=== PATIENT | female | born 2000 | race Caucasian/White ===

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

== ENCOUNTER 2021-03-31 07:10 | Inpatient (IN) ==
[2021-03-31] MEDS ORDERED: OXYTOCIN 30 UNITS/500 ML BAG IV PRN (07:22)
[2021-03-31] MEDS ORDERED: DINOPROSTONE 10 MG INSERT PV ONE (07:40)
--- NOTE | 2021-03-31 08:05 | Labor Progress Brief Note ---
Date of Service March 31, 2021 Assessment & Plan Admission and Anticipated Discharge Date Admission Date: March 31, 2021 Physical Exam Physical Exam: Admit Note Constitutional: WD/WN, vitals as above comfortable Genitourinary: Manual OB Exam: + cervical dilation fingertip, + cervical effacement 50% and + station high OB Exam Monitor Tracing: + external FHT monitor used, + external uterine monitor used, + category I and + normal FHT variability Cervidil 10 mcg placed vaginally Results & Data ([facility]) Vital Signs (Past 12 Hours) Vital Signs Pulse BP 03/31/21 07:19 125 H 130/87
[2021-03-31 08:14] LABS: Hematocrit (blood only) 37.1 % (37-47); Hemoglobin 12.6 g/dL (12.0-16.0); Mean Corpuscular Hemoglobin 30.1 pg (25-34); Mean Corpuscular Volume 88.8 fL (80-100); Mean Platelet Volume 10.5 fL (7.4-10.4); Platelet Count 200 K/uL (130-400); RDW Coefficient of Variation 13.3 % (11.5-14.5); RDW Standard Deviation 43.5 fL (36.4-46.3); Red Blood Count 4.18 M/uL (4.2-5.4); White Blood Count 10.36 K/uL (4.8-10.8)
--- NOTE | 2021-03-31 20:03 | Labor Progress Brief Note ---
Date of Service March 31, 2021 Assessment & Plan Admission and Anticipated Discharge Date Admission Date: March 31, 2021 Physical Exam Genitourinary: Manual OB Exam: + cervical dilation 1 cm, + cervical effacement 50% and + station high OB Exam Monitor Tracing: + external FHT monitor used, + external uterine monitor used, + category I and + normal FHT variability Cervidil removed patient will shower, eat, ambulate Results & Data ([facility]) Vital Signs (Past 12 Hours) Vital Signs Temp Pulse Resp BP 03/31/21 19:18 36.8 C 18 03/31/21 19:10 103 H 137/95 03/31/21 14:53 86 133/86 03/31/21 14:48 36.6 C 16 03/31/21 10:55 36.5 C 14 03/31/21 10:54 74 123/82 03/31/21 08:15 94 H 129/84
[2021-04-01] MEDS ORDERED: DINOPROSTONE 10 MG INSERT PV ONE (00:17)
--- NOTE | 2021-04-01 00:48 | Labor Progress Brief Note ---
Date of Service April 01, 2021 Assessment & Plan Admission and Anticipated Discharge Date Admission Date: March 31, 2021 Physical Exam Genitourinary: Manual OB Exam: + cervical dilation 1 cm, + cervical effacement 50% and + station high OB Exam Monitor Tracing: + external FHT monitor used, + external uterine monitor used, + category I and + normal FHT variability Cervidil placed vaginally Results & Data ([facility]) Vital Signs (Past 12 Hours) Vital Signs Temp Pulse Resp BP 03/31/21 23:09 106 H 132/83 03/31/21 22:56 36.8 C 18 03/31/21 19:18 36.8 C 18 03/31/21 19:10 103 H 137/95 03/31/21 14:53 86 133/86 03/31/21 14:48 36.6 C 16
[2021-04-01] MEDS ORDERED: BUTORPHANOL TARTRATE 1 MG/ML VIAL IV PRN (00:49)
[2021-04-01] MEDS ORDERED: OXYTOCIN 30 UNITS/500 ML BAG IV PRN ×2 (11:51→20:33)
--- NOTE | 2021-04-01 11:54 | Obstetrical Progress Note ---
Date of Service April 01, 2021 Assessment & Plan Admission and Anticipated Discharge Date Admission Date: March 31, 2021 Subjective Patient is seen and examined. Reviewed her records records from office and confirmed with her. She is a 20-year-old at 40 weeks and 3 days of gestation, admitted yesterday for induction of labor for postdates. Received 2 Cervidil inserts. She does not feel contractions, denies leakage of fluid or vaginal bleeding. She reports good movements. GBS is negative, heart rate is reassuring, Vaginal exam, cervix is 3 cm dilated, 50% paced and head at -3 station Bedside ultrasound is done confirmed vertex presentation. Patient desires to eat before we start oxytocin. Plan for lunch and then low-dose oxytocin per protocol and AROM when able, Continue to monitor closely. Results & Data ([facility]) Vital Signs (Past 12 Hours) Vital Signs Temp Pulse Resp BP 04/01/21 11:01 77 139/84 04/01/21 11:00 36.7 C 77 18 04/01/21 07:00 36.8 C 94 H 16 133/79 04/01/21 04:38 107 H 127/70 04/01/21 04:36 37.0 C 18 04/01/21 02:45 16
[2021-04-01] MEDS: LACTATED RINGER'S 1,000 ML IV PRN ×2 (12:48→17:38)
[2021-04-01] MEDS ORDERED: fentaNYL 2MCG/ML ROPIVACAINE 1.25MG/ML 100 ML BAG EPI ONE (14:25)
[2021-04-01] MEDS ORDERED: SODIUM CHLORIDE 0.9% INJ 10 ML VIAL ONE (14:25)
[2021-04-01] MEDS ORDERED: ePHEDrine sulfate 50 MG/ML AMP ONE (14:25)
[2021-04-01] MEDS ORDERED: fentaNYL citrate 100 MCG/2 ML VIAL ONE (14:25)
[2021-04-01] MEDS ORDERED: BUPIVACAINE 0.25% 30 ML VIAL ONE (14:25)
--- NOTE | 2021-04-01 14:33 | Anesthesiology Consultation ---
Date of Service April 01, 2021 Assessment & Plan ASA ASA2 Proposed Anesthesia Anesthesia Type: Labor Epidural Risk / Benefits Reviewed With: PT / POA / Parent / Guardian, Accepts Plan and Informed Consent Obtained History Height/Weight Height: 5 ft 5 in Weight: 97.522 kg Allergies Allergy/AdvReac Type Severity Reaction Status Date / Time No Known Allergies Allergy Verified 09/27/20 21:14 Medications Home Medications Medication Instructions Recorded Confirmed Last Taken buspirone 15 mg tablet 15 mg PO BID 09/27/20 03/31/21 03/30/21 21:00 lamotrigine 150 mg tablet 150 mg PO QAM 09/27/20 03/31/21 03/30/21 21:00 vitamins no.144-folic 1 tab PO DAILY 09/27/20 03/31/21 03/30/21 21:00 acid 400 mcg chewable tablet () Active Medications Generic Name Dose Route Start Last Admin Trade Name Freq PRN Reason Stop Dose Admin Lactated Ringer's 1,000 mls @ 125 mls/hr 03/31/21 07:22 04/01/21 14:52 Lr IV 04/02/21 07:21 125 mls/hr .Q8H PRN Titration L&D Protocol Protocol Oxytocin 30 units in 500 mls @ 4 mls/hr 04/01/21 11:51 04/01/21 13:45 Pitocin IV 04/03/21 11:50 0.24 units/hr .Q24H PRN 4 mls/hr Labor Induction/Augmentation Titration Protocol 0.24 UNITS/HR Past Medical History Medical History (Updated 03/31/21 @ 11:17 by Heather Bassett RN) Anaphylactic reaction due to unspecified food Anxiety Bipolar 2 disorder COVID-22 December 2020 Depression History of frequent headaches Exercise / Class Metabolic Activity II 4-5 Yardwork/Stairs/Walk up hill Past Family History Family History Other Cancer Diabetes Heart disease Hypertension Past Surgical History Surgical History (Updated 03/31/21 @ 08:10 by Heather Bassett RN) History of tonsillectomy [place] teeth extracted Past Anesthesia History No Hx of Anesthesia Complications and No Family Hx of Anesthesia Complications History of PONV No Hx of PONV and No Hx of Motion Sickness Social History Smoking Status: Former smoker tobacco type: cigarettes Hx Alcohol Use: No Hx Substance Use: No Review of Systems denies fever/cough/ colds/ chest pain/ SOB/ JIMENA denies JIMENA Physical Exam Vital Signs Last Vital Signs Temp 36.7 C 04/01/21 11:00 Pulse 98 H 04/01/21 15:19 Resp 18 04/01/21 11:00 BP 114/60 04/01/21 15:16 Pulse Ox 99 04/01/21 15:19 ENMT Mouth: no TMJ abnormality and no dentition abnormality Thyromental Distance: > or= 3.5 Finger Breadths Mallampati Class: II Neck neck extension not limited Respiratory normal respiratory effort; no respiratory distress Auscultation: lungs clear to auscultation bilaterally Cardiovascular Rate/Rhythm: regular rate and regular rhythm Neurologic moves all extremities Psychiatric Orientation: alert and oriented x 3 Testing Laboratory Results 03/31/21 07:56
[2021-04-01] MEDS ORDERED: NALOXONE HCL 0.4 MG/1 ML VIAL/CARP IV PRN (14:34)
[2021-04-01] MEDS ORDERED: NALBUPHINE HCL INJ 10 MG/ML AMP IV PRN (14:34)
[2021-04-01] MEDS ORDERED: NALOXONE HCL 1 MG in SODIUM CHLORIDE 0.9% 1000ML 1,000 ML IV PRN (14:34)
[2021-04-01] MEDS ORDERED: ePHEDrine sulfate 50 MG/ML AMP IV PRN (14:34)
[2021-04-01] MEDS ORDERED: diphenhydrAMINE 50 MG/ML VIAL IV PRN (14:34)
[2021-04-01] MEDS ORDERED: fentaNYL 2MCG/ML ROPIVACAINE 1.25MG/ML 100 ML BAG EPI PRN (14:34)
[2021-04-01] MEDS ORDERED: ONDANSETRON INJ 2 MG/ML 2 ML VIAL IV PRN (14:34)
--- NOTE | 2021-04-01 16:02 | Obstetrical Progress Note ---
Date of Service April 01, 2021 Assessment & Plan Admission and Anticipated Discharge Date Admission Date: March 31, 2021 Subjective Patient is reevaluated She is comfortable now, received epidural for pain VSS Afebrile FHR categ I Denair ctxs q 3-4 min, pitocin is at 6 miu/min VE: 4/ 70%/ -2, AROM'ed clear fluid Continue to monitor closely Results & Data ([facility]) Vital Signs (Past 12 Hours) Vital Signs Temp Pulse Resp BP Pulse Ox 04/01/21 15:59 118 H 99 04/01/21 15:54 93 H 102/55 L 98 04/01/21 15:49 93 H 102/55 L 97 04/01/21 15:44 92 H 98 04/01/21 15:43 96 H 103/53 L 04/01/21 15:39 93 H 98 04/01/21 15:38 95 H 102/51 L 04/01/21 15:34 91 H 98 04/01/21 15:33 96 H 94/53 L 04/01/21 15:29 102 H 98 04/01/21 15:28 106 H 106/53 L 04/01/21 15:24 101 H 99/53 L 99 04/01/21 15:19 98 H 99 04/01/21 15:16 99 H 114/60 04/01/21 15:14 98 H 115/64 99 04/01/21 15:12 98 H 122/61 04/01/21 15:10 101 H 119/62 04/01/21 15:09 107 H 98 04/01/21 15:08 101 H 115/57 L 04/01/21 15:06 100 H 127/71 04/01/21 15:04 96 H 132/75 99 04/01/21 14:58 115 H 99 04/01/21 14:55 129 H 141/79 H 04/01/21 14:53 114 H 100 04/01/21 14:48 107 H 99 04/01/21 14:43 106 H 99 04/01/21 14:42 87 139/88 04/01/21 13:55 95 H 132/74 04/01/21 12:54 115 H 138/87 04/01/21 11:01 77 139/84 04/01/21 11:00 36.7 C 77 18 04/01/21 07:00 36.8 C 94 H 16 133/79 04/01/21 04:38 107 H 127/70 04/01/21 04:36 37.0 C 18
--- NOTE | 2021-04-01 19:41 | Obstetrical Progress Note ---
Date of Service April 01, 2021 Assessment & Plan Admission and Anticipated Discharge Date Admission Date: March 31, 2021 Subjective Patient will start to feel contractions and pressure. Vaginal exam, cervix is fully dilated and head is at +2 station. heart rate is category 1 with prolonged accelerations, We will start pushing and anticipate . Results & Data ([facility]) Vital Signs (Past 12 Hours) Vital Signs Temp Pulse Resp BP Pulse Ox 04/01/21 19:39 110 H 98 04/01/21 19:34 113 H 99 04/01/21 19:31 107 H 138/86 04/01/21 19:29 98 H 99 04/01/21 19:24 102 H 99 04/01/21 19:19 103 H 98 04/01/21 19:15 89 123/70 04/01/21 19:14 101 H 98 04/01/21 19:09 98 H 98 04/01/21 19:04 97 H 98 04/01/21 19:00 37.0 C 90 18 123/77 04/01/21 18:59 100 H 99 04/01/21 18:54 101 H 98 04/01/21 18:49 87 99 04/01/21 18:46 88 107/60 04/01/21 18:44 87 97 04/01/21 18:39 90 98 04/01/21 18:34 102 H 99 04/01/21 18:31 95 H 134/66 04/01/21 18:29 108 H 99 04/01/21 18:24 101 H 98 04/01/21 18:19 108 H 98 04/01/21 18:16 100 H 129/84 04/01/21 18:14 101 H 98 04/01/21 18:09 99 H 97 04/01/21 18:04 97 H 97 04/01/21 18:00 102 H 20 138/83 04/01/21 17:59 110 H 99 04/01/21 17:54 91 H 97 04/01/21 17:49 83 98 04/01/21 17:45 100 H 127/80 04/01/21 17:44 93 H 98 04/01/21 17:39 103 H 98 04/01/21 17:34 94 H 97 04/01/21 17:30 100 H 125/81 04/01/21 17:29 79 97 04/01/21 17:24 85 97 04/01/21 17:19 85 97 04/01/21 17:17 75 112/70 04/01/21 17:14 100 H 98 04/01/21 17:09 87 98 04/01/21 17:04 77 97 04/01/21 17:01 85 113/79 04/01/21 17:00 18 04/01/21 16:59 77 97 04/01/21 16:54 83 98 04/01/21 16:49 89 97 04/01/21 16:46 93 H 129/85 04/01/21 16:44 106 H 98 04/01/21 16:39 93 H 98 04/01/21 16:34 100 H 99 04/01/21 16:31 89 127/69 04/01/21 16:30 36.5 C 94 H 18 127/69 99 04/01/21 16:29 112 H 99 04/01/21 16:24 91 H 99 04/01/21 16:19 112 H 98 04/01/21 16:16 98 H 110/63 04/01/21 16:15 18 04/01/21 16:14 98 H 99 04/01/21 16:09 95 H 99 04/01/21 16:04 96 H 98 04/01/21 16:02 121 H 96/54 L 04/01/21 16:01 102 H 106/55 L 04/01/21 16:00 18 04/01/21 15:59 118 H 99 04/01/21 15:54 93 H 102/55 L 98 04/01/21 15:49 93 H 102/55 L 97 04/01/21 15:45 18 04/01/21 15:44 92 H 98 04/01/21 15:43 96 H 103/53 L 04/01/21 15:39 93 H 98 04/01/21 15:38 95 H 102/51 L 04/01/21 15:34 91 H 98 04/01/21 15:33 96 H 94/53 L 04/01/21 15:30 18 04/01/21 15:29 102 H 98 04/01/21 15:28 106 H 106/53 L 04/01/21 15:24 101 H 99/53 L 99 04/01/21 15:19 98 H 99 04/01/21 15:16 99 H 114/60 04/01/21 15:15 18 04/01/21 15:14 98 H 115/64 99 04/01/21 15:12 98 H 122/61 04/01/21 15:10 101 H 20 119/62 04/01/21 15:09 107 H 98 04/01/21 15:08 101 H 115/57 L 04/01/21 15:06 100 H 127/71 04/01/21 15:05 20 04/01/21 15:04 96 H 132/75 99 04/01/21 14:58 115 H 99 04/01/21 14:55 129 H 141/79 H 04/01/21 14:53 114 H 100 04/01/21 14:48 107 H 99 04/01/21 14:43 106 H 99 04/01/21 14:42 87 139/88 04/01/21 14:30 37.0 C 20 04/01/21 13:55 95 H 132/74 04/01/21 12:54 115 H 138/87 04/01/21 11:01 77 139/84 04/01/21 11:00 36.7 C 77 18
[2021-04-01] MEDS ORDERED: BENZOCAINE 20% AER SPR 82.5 GM CAN EXT PRN (20:33)
[2021-04-01] MEDS ORDERED: bisacodyL 10 MG SUPP PR PRN (20:33)
[2021-04-01] MEDS ORDERED: HYDROCORTISONE ACETATE 25 MG SUPP PR PRN (20:33)
[2021-04-01] MEDS ORDERED: SUPERCREAM 0.870% 15 GM JAR EXT PRN (20:33)
[2021-04-01] MEDS ORDERED: MEASLES, MUMPS & RUBELLA VIRUS VIAL SQ ONE (20:33)
[2021-04-01] MEDS ORDERED: DIPHTHERIA/TETANUS/PERTUSSIS 0.5 ML SYR/VIAL IM ONE (20:33)
[2021-04-01] MEDS ORDERED: oxyCODONE/ACETAMINOPHEN 5mg/325mg TAB PO PRN (20:33)
--- NOTE | 2021-04-01 21:06 | Delivery Summary ---
DATE OF DELIVERY: 04/01/2021. TIME: 19:58 p.m. DETAILS OF DELIVERY: The patient was found to be fully dilated and desired to push. She pushed for about 20 minutes and delivered the head without difficulty. Shoulders were delivered with minimal traction. There was a nuchal cord around the neck x2 and those were tight. Those were reduced and then baby was handed off to the mother where mouth and nose were suctioned. Baby was vigorously moving and crying. Cord was clamped x2 and cut at 1 minute delay. Then the vagina and perineum were checked for lacerations. There was a second- degree vaginal laceration at the posterior vaginal wall and there was a first- degree in the left superior labia minora. The second-degree laceration was repaired with 2-0 Vicryl in a running locked fashion. There was an oozing part. It was also repaired with multiple [id number] stitches and then left labial laceration was repaired with 3-0 Vicryl on an SH needle. Excellent hemostasis was achieved. Placenta was found to be in the vagina, delivered spontaneous as intact and complete. Uterus was explored and found to be empty. Lower segment was cleared of all clots and debris. Fundus was firm. EBL was 200 mL. Then, the vagina was checked again to have oozing from the repair on the posterior wall. It was repaired with [id number] stitches with 2-0 Vicryl. There was general oozing on the mucosa. Those were covered with Sharon powder and two sponges were placed for vaginal pressure to be removed in 2 hours. Mom and baby tolerated the procedure well. Sponge, lap, and needle count was correct x2. Baby was a viable female infant, Apgars 8 and 9, weight is 3536 GR. No complications happened and I was present during whole procedure. Job ID: [id number] [facility]
[2021-04-01] MEDS: DOCUSATE SODIUM 100 MG CAP PO SCH (21:59)
[2021-04-02] MEDS: IBUPROFEN 600 MG TAB PO PRN ×3 (04:51→19:58)
[2021-04-02 06:57] LABS: Hematocrit (blood only) 30.6 % (37-47); Hemoglobin 10.3 g/dL (12.0-16.0); Mean Corpuscular Hemoglobin 29.9 pg (25-34); Mean Corpuscular Hgb Conc 33.7 g/dL (32-36); Mean Platelet Volume 10.3 fL (7.4-10.4); Platelet Count 161 K/uL (130-400); RDW Coefficient of Variation 13.3 % (11.5-14.5); RDW Standard Deviation 43.8 fL (36.4-46.3); Red Blood Count 3.44 M/uL (4.2-5.4)
[2021-04-02] MEDS ORDERED: PRENATAL VITAMIN 1 TAB PO SCH (08:00)
[2021-04-02] MEDS ORDERED: FERROUS SULFATE 325 MG TAB PO SCH (08:00)
[2021-04-02] MEDS: DOCUSATE SODIUM 100 MG CAP PO SCH ×2 (08:50→19:57)
--- NOTE | 2021-04-02 09:37 | Anesthesia Procedure Note ---
Date of Service April 02, 2021 Anesthesia Post Epidural Note Vital Signs Vital Signs: Temp Pulse Resp BP Pulse Ox 36.7 C 93 H 16 109/71 99 04/02/21 04:20 04/02/21 04:20 04/02/21 04:20 04/02/21 04:20 04/02/21 04:20 Pain Intensity Lower Medial Back: Pain Intensity: 0 Episiotomy/Laceration: Pain Intensity: 2 Notes Mental Status: alert / awake / arousable Nausea / Vomiting: adequately controlled Pain: adequately controlled Airway Patency, RR, SpO2: stable & adequate BP & HR: stable & adequate Hydration State: stable & adequate Neuraxial Anesthesia: was administered and sensory block is resolving Anesthetic Complications: no major complications apparent and Pt Satisfied with anesthetic care Epidural: Removed without complications and With tip intact
--- NOTE | 2021-04-02 10:30 | Obstetrical Progress Note ---
Date of Service April 02, 2021 Subjective Review of Systems doing well plans for d/c in AM Physical Exam Constitutional WD/WN, vitals as above comfortable abdomen soft and non-tender fundus firm no edema neg Mo's for d/c in AM Results & Data ([facility]) Vital Signs (Past 12 Hours) Vital Signs Temp Pulse Pulse Resp BP BP Pulse Ox 04/02/21 08:30 36.5 C 85 20 110/74 99 04/02/21 04:20 36.7 C 93 H 16 109/71 99 04/01/21 23:30 37.2 C 98 H 17 110/73 98 04/01/21 22:30 117 H 18 128/76
[2021-04-02] MEDS: ACETAMINOPHEN 325 MG TAB PO PRN (19:57)
[2021-04-02] MEDS ORDERED: bisacodyL 5 MG TABEC PO SCH (20:00)
[2021-04-02] MEDS ORDERED: lamoTRIgine 25 MG TAB PO SCH (21:00)
[2021-04-02] MEDS ORDERED: busPIRone 15 MG TAB PO SCH (21:00)
[2021-04-03 06:42] LABS: Hematocrit (blood only) 33.1 % (37-47); Hemoglobin 11.1 g/dL (12.0-16.0)
[2021-04-03] MEDS: ACETAMINOPHEN 325 MG TAB PO PRN (06:42)
--- NOTE | 2021-04-03 08:00 | Obstetrical Progress Note ---
Date of Service April 03, 2021 Assessment & Plan Admission and Anticipated Discharge Date Admission Date: March 31, 2021 Subjective Patient is seen and examined. She feels well, no complaints. Ambulating without dizziness Voiding without difficulty Tolerating regular diet with out N&V Bleeding is minimal No fever/ chills/ CP/ SOB/ N&V/ Leg pain Flatus+, BM neg Bottle feeding without problems Vital Signs Temp Pulse Resp BP BP Pulse Ox 04/02/21 23:50 36.7 C 80 17 118/77 99 04/02/21 19:40 36.7 C 99 H 16 129/84 100 04/02/21 15:50 36.5 C 83 20 119/76 98 04/02/21 12:55 36.6 C 92 H 20 124/82 99 04/02/21 08:30 36.5 C 85 20 110/74 99 Lab Results 03/31/21 03/31/21 03/31/21 Range/Units 07:40 07:40 07:56 WBC 10.36 (4.8-10.8) K/uL RBC 4.18 L (4.2-5.4) M/uL Hgb 12.6 (12.0-16.0) g/dL Hct 37.1 (37-47) % MCV 88.8 (80-100) fL MCH 30.1 (25-34) pg MCHC 34.0 (32-36) g/dL RDW Std Deviation 43.5 (36.4-46.3) fL RDW Coeff of Talya 13.3 (11.5-14.5) % Plt Count 200 (130-400) K/uL MPV 10.5 H (7.4-10.4) fL COVID-19 Eval Order Covid19 [facility] SARS-CoV-2, RNA, NAAT NEGATIVE (NEGATIVE) 04/02/21 04/03/21 Range/Units 06:37 06:16 WBC 14.80 H (4.8-10.8) K/uL RBC 3.44 L (4.2-5.4) M/uL Hgb 10.3 L 11.1 L (12.0-16.0) g/dL Hct 30.6 L 33.1 L (37-47) % MCV 89.0 (80-100) fL MCH 29.9 (25-34) pg MCHC 33.7 (32-36) g/dL RDW Std Deviation 43.8 (36.4-46.3) fL RDW Coeff of Talya 13.3 (11.5-14.5) % Plt Count 161 (130-400) K/uL MPV 10.3 (7.4-10.4) fL COVID-19 Eval Order SARS-CoV-2, RNA, NAAT (NEGATIVE) PE: General: Alert, orientedx3, NAD Abd: soft, NT, fundus firm, below Umbilicus Perineum intact, Lochia rubra minimal Ext; NT, no edema AP: 20 yo s/p , ppd# 2 VSS Afebrile doing well Continue routine care All questions were answered Discussed when to call D/C home , f/u in office Results & Data ([facility]) Vital Signs (Past 12 Hours) Vital Signs Temp Pulse Resp BP Pulse Ox 04/02/21 23:50 36.7 C 80 17 118/77 99
[2021-04-03] MEDS ORDERED: POLYETHYLENE (MIRALAX) 17 GM PACK PO SCH (09:00)
== END 2021-04-03 11:35 | disposition home or self-care (01) | DRG 807 ==
LOC: 4S1 07:10 → 4S2 04-02 00:01

== ENCOUNTER 2023-02-01 07:27 | Inpatient (IN) ==
[2023-02-01] MEDS ORDERED: LIDOCAINE 1% LOCAL 20 ML VIAL INFIL PRN (10:39)
[2023-02-01] MEDS ORDERED: OXYTOCIN 30 UNITS/500 ML BAG IV PRN (10:39)
--- NOTE | 2023-02-01 11:11 | History & Physical Report ---
Date of Service February 01, 2023 Assessment & Plan Admission and Anticipated Discharge Date Admission Date: February 01, 2023 History of Present Illness Chief Complaint: induction of labor for post-dates Primary Care Provider: Kim Parker, 22 F [id number] at 40.2 weeks here for IOL for post-dates . GBS is positive. Covid is negative. Allergies Allergy/AdvReac Type Severity Reaction Status Date / Time No Known Allergies Allergy Verified 02/01/23 08:11 Home Medications Medication Instructions Recorded Confirmed Type albuterol sulfate 90 mcg/actuation 2 inh inhalation Q4 PRN Shortness 10/12/21 02/01/23 History aerosol inhaler Of Breath prenat.vits,iva,zpg-ahnu-cbwtu 1 tab PO DAILY 02/01/23 02/01/23 History Patient History Medical History ADHD Anaphylactic reaction due to unspecified food Anxiety Bipolar 2 disorder COVID-22 December 2020 Depression History of frequent headaches Surgical History History of tonsillectomy [place] teeth extracted Family History Other Cancer Diabetes Heart disease Hypertension Social History Smoking Status: Never smoker Tobacco Type: E-cigarettes / Vaping Hx Alcohol Use: No Hx Substance Use: No Preferred Language: Kyrgyz Communication Ability: Effective District Sales Leader Required: No Beliefs That Will Affect Care: None marital status: Current Living Situation: Spouse Current Living Situation Comment: and daughter current occupational status: unemployed Other Information That Helps Us Care for You: No Feels Safe at Home: Yes Safety Concerns: Feels Safe At This Time Gender Identity: Female Assistive Devices: None OB History x1 RN PSYCHIATRIC History neg Review of Systems All systems reviewed & are unremarkable except as noted in HPI & below Physical Exam Constitutional: WD/WN, vitals as above Eyes: PERRL, conjunctivae normal, anicteric sclerae Respiratory: normal respiratory effort, lungs clear to auscultation Gastrointestinal (Abdomen): Inspection/Auscultation: abdomen normal to inspection Skin: no rashes, warm and dry Neurologic: patellar DTR's 2+ bilat, sensation intact Psychiatric: A+Ox3, euthymic affect Genitourinary: no vaginal lesions, no adnexal mass OB Exam Abdomen: + fundal height and + vertex Manual OB Exam: + cervical dilation 1 cm, + cervical effacement 50% and + station high OB Exam Monitor Tracing: + external FHT monitor used, + external uterine monitor used, + category I and + normal FHT variability cervix posterio and soft Results & Data Vital Signs (Past 12 Hours) Vital Signs Temp Pulse Resp BP 02/01/23 07:48 36.9 C 20 02/01/23 07:40 81 131/75 Laboratory Results 02/01/23 02/01/23 08:12 Unknown SARS-CoV-2, RNA, NAAT NEGATIVE Blood Type O Positive Antibody Screen NEGATIVE Code Status & VTE Plan VTE Prophylaxis Plan VTE Prophylaxis will be ordered: No Monitoring External Monitor Cat 1
[2023-02-01] MEDS ORDERED: PENICILLIN G POTASSIUM 6 MU in DEXTROSE 5% 250 ML IV STA (11:13)
[2023-02-01] MEDS ORDERED: miSOPROStoL 50 MCG TAB PO STA (11:13)
[2023-02-01 11:19] LABS: Hematocrit (blood only) 33.7 % (37.0-47.0); Hemoglobin 10.7 g/dl (12.0-16.0); Mean Corpuscular Hemoglobin 27.1 pg (25.0-34.0); Mean Corpuscular Hgb Conc 31.8 g/dL (32.0-36.0); Mean Corpuscular Volume 85.3 fL (80.0-100.0); Mean Platelet Volume 11.1 fL (9.4-12.4); Platelet Count 198 K/uL (130-400); RDW Coefficient of Variation 14.1 % (11.5-14.5); RDW Standard Deviation 43.6 fL (36.4-46.3); Red Blood Count 3.95 M/uL (4.20-5.40); White Blood Count 9.05 K/ul (4.8-10.8)
[2023-02-01] MEDS: LACTATED RINGER'S 1,000 ML IV PRN (11:47)
[2023-02-01] MEDS: PENICILLIN G POTASSIUM 3 MU in DEXTROSE 5% 100 ML IV PRN ×3 (15:47→23:56)
--- NOTE | 2023-02-01 16:54 | Labor Progress Brief Note ---
Date of Service February 01, 2023 Assessment & Plan Admission and Anticipated Discharge Date Admission Date: February 01, 2023 Physical Exam Genitourinary: Manual OB Exam: + cervical dilation 1 cm, + cervical effacement 50% and + station high OB Exam Monitor Tracing: + external FHT monitor used, + external uterine monitor used, + category I and + normal FHT variability Results & Data Vital Signs (Past 12 Hours) Vital Signs Temp Pulse Resp BP 02/01/23 15:52 37.0 C 20 02/01/23 07:48 36.9 C 02/01/23 15:51 81 02/01/23 15:51 133/81 02/01/23 14:09 86 02/01/23 14:09 36.9 C 20 123/66 02/01/23 11:47 80 02/01/23 11:47 134/72 02/01/23 11:39 86 02/01/23 11:39 135/89 02/01/23 07:40 81 131/75
[2023-02-01] MEDS: miSOPROStoL 50 MCG TAB PO SCH ×2 (17:20→21:45)
[2023-02-01] MEDS ORDERED: DINOPROSTONE 10 MG INSERT PV ONE (22:18)
--- NOTE | 2023-02-01 22:59 | Labor Progress Brief Note ---
Date of Service February 01, 2023 Assessment & Plan Admission and Anticipated Discharge Date Admission Date: February 01, 2023 Physical Exam Genitourinary: Manual OB Exam: + cervical dilation 1 cm, + cervical effacement 50% and + station high OB Exam Monitor Tracing: + external FHT monitor used, + external uterine monitor used, + category I and + normal FHT variability Cervidil 10 mg placed vaginally Results & Data Vital Signs (Past 12 Hours) Vital Signs Temp Pulse Resp BP 02/01/23 19:25 36.9 C 18 02/01/23 15:52 37.0 C 20 02/01/23 22:40 82 02/01/23 22:40 122/73 02/01/23 21:15 18 02/01/23 21:15 18 02/01/23 19:28 18 02/01/23 19:28 36.9 C 18 02/01/23 19:28 81 02/01/23 19:28 130/70 02/01/23 15:51 81 02/01/23 15:51 133/81 02/01/23 14:09 86 02/01/23 14:09 36.9 C 20 123/66 02/01/23 11:47 80 02/01/23 11:47 134/72 02/01/23 11:39 86 02/01/23 11:39 135/89
[2023-02-01] MEDS ORDERED: BUTORPHANOL TARTRATE 1 MG/ML VIAL IV PRN (23:11)
[2023-02-02] MEDS: PENICILLIN G POTASSIUM 3 MU in DEXTROSE 5% 100 ML IV PRN ×4 (04:25→18:11)
[2023-02-02] MEDS ORDERED: OXYTOCIN 30 UNITS/500 ML BAG IV PRN (13:17)
--- NOTE | 2023-02-02 13:18 | Labor Progress Brief Note ---
Date of Service February 02, 2023 Assessment & Plan Admission and Anticipated Discharge Date Admission Date: February 01, 2023 Physical Exam Genitourinary: Manual OB Exam: + cervical dilation 1 cm and 2 cm, + cervical effacement 50% and + station high OB Exam Monitor Tracing: + external FHT monitor used, + external uterine monitor used, + category I and + normal FHT variability will start Oxytocin to augment contraactions Results & Data Vital Signs (Past 12 Hours) Vital Signs Temp Pulse Resp BP 02/02/23 11:03 36.9 C 95 H 18 125/77 02/02/23 08:29 36.7 C 80 20 120/72 02/02/23 03:42 36.4 C L 88 16 121/69
[2023-02-02] MEDS: LACTATED RINGER'S 1,000 ML IV PRN (14:01)
--- NOTE | 2023-02-02 17:44 | Labor Progress Brief Note ---
Date of Service February 02, 2023 Assessment & Plan Admission and Anticipated Discharge Date Admission Date: February 01, 2023 Physical Exam Genitourinary: Manual OB Exam: + cervical dilation 1 cm and 2 cm, + cervical effacement 50% and + station high OB Exam Monitor Tracing: + external FHT monitor used, + external uterine monitor used, + category I and + normal FHT variability Results & Data Vital Signs (Past 12 Hours) Vital Signs Temp Pulse Resp BP 02/02/23 17:05 95 H 121/63 02/02/23 16:02 90 123/79 02/02/23 15:08 36.8 C 86 18 131/79 02/02/23 11:03 36.9 C 95 H 18 125/77 02/02/23 08:29 36.7 C 80 20 120/72
[2023-02-02] MEDS ORDERED: miSOPROStoL 50 MCG TAB PO PRN (22:58)
[2023-02-02] MEDS ORDERED: BUTORPHANOL TARTRATE 1 MG/ML VIAL IV PRN (23:02)
--- NOTE | 2023-02-02 23:02 | Labor Progress Brief Note ---
Date of Service February 02, 2023 Assessment & Plan Admission and Anticipated Discharge Date Admission Date: February 01, 2023 Physical Exam Genitourinary: Manual OB Exam: + cervical dilation 1 cm and 2 cm, + cervical effacement 50% and + station (cervix softer but still posterior) high OB Exam Monitor Tracing: + external FHT monitor used, + external uterine monitor used, + category I and + normal FHT variability Will hold Oxytocin during night and start Cytotec 50 mcg PO if contractions space out intermittent monitoring during night Results & Data Vital Signs (Past 12 Hours) Vital Signs Temp Pulse Resp BP 02/02/23 22:01 80 119/79 02/02/23 21:00 86 126/80 02/02/23 20:00 74 124/79 02/02/23 19:00 36.8 C 81 18 132/79 02/02/23 17:54 84 129/80 02/02/23 17:05 95 H 121/63 02/02/23 16:02 90 123/79 02/02/23 15:08 36.8 C 86 18 131/79 02/02/23 11:03 36.9 C 95 H 18 125/77
[2023-02-03] MEDS: LACTATED RINGER'S 1,000 ML IV PRN (07:27)
--- NOTE | 2023-02-03 08:46 | Labor Progress Brief Note ---
Date of Service February 03, 2023 Subjective Current Pain Level(1-10): 3 Review of Systems All systems reviewed & are unremarkable except as noted in HPI & below Assessment & Plan (1) Normal labor: Present on Admission?: No Plan resume pitocin to [place] labor pain meds including epidural as the pt desires Admission and Anticipated Discharge Date Admission Date: February 01, 2023 Physical Exam Constitutional: well developed Respiratory: normal respiratory effort, lungs clear to auscultation Cardiovascular: RRR, no murmur, no edema Genitourinary: Manual OB Exam: + cervical dilation 3 cm, + cervical effacement 70% and + station high OB Exam Monitor Tracing: + category I Results & Data Vital Signs (Past 12 Hours) Vital Signs Temp Pulse Resp BP 02/03/23 07:00 36.7 C 89 18 139/74 02/03/23 08:37 76 136/89 02/03/23 08:21 88 122/84 02/03/23 08:07 86 126/85 02/03/23 07:00 18 02/03/23 07:00 36.7 C 89 18 139/74 02/03/23 07:51 80 125/67 02/03/23 07:36 83 128/69 02/03/23 07:05 20 02/03/23 07:05 36.8 C 20 02/03/23 07:21 83 132/68 02/03/23 07:06 89 139/74 02/03/23 03:52 36.6 C 101 H 16 130/58 L 02/02/23 23:00 36.6 C 85 18 135/87 02/02/23 22:01 80 119/79 02/02/23 21:00 86 126/80 Supervising Physician Co-Signing Physician Notes [email or web address]
[2023-02-03] MEDS ORDERED: OXYTOCIN 30 UNITS/500 ML BAG IV SCH (09:00)
[2023-02-03] MEDS: OXYTOCIN 30 UNITS/500 ML BAG IV SCH ×3 (09:28→20:56)
[2023-02-03] MEDS: LACTATED RINGER'S 1,000 ML IV SCH ×2 (14:39→21:03)
[2023-02-03] MEDS ORDERED: fentaNYL citrate PF 100 MCG/2 ML VIAL ONE (15:00)
[2023-02-03] MEDS ORDERED: ePHEDrine sulfate 50 MG/ML AMP ONE (15:00)
[2023-02-03] MEDS ORDERED: LIDOCAINE 2%/EPINEPHRINE 1:200,000 20 ML PF ONE (15:01)
[2023-02-03] MEDS ORDERED: SODIUM CHLORIDE 0.9% PF INJ 10 ML VIAL ONE (15:01)
[2023-02-03] MEDS ORDERED: fentaNYL 2MCG/ML ROPIVACAINE 1.25MG/ML 100 ML BAG EPI ONE (15:01)
[2023-02-03] MEDS ORDERED: BUPIVACAINE 0.25% PF 30 ML VIAL ONE (15:01)
--- NOTE | 2023-02-03 15:12 | Anesthesiology Consultation ---
Date of Service February 03, 2023 Assessment & Plan (1) Encounter for pre-operative examination: Chart Review Chart Review: Acceptable Risk for Labor Epidural History Height/Weight Height: 5 ft 5 in Weight: 102.058 kg Allergies Allergy/AdvReac Type Severity Reaction Status Date / Time No Known Allergies Allergy Verified 02/01/23 08:11 Medications Home Medications Medication Instructions Recorded Confirmed Last Taken albuterol sulfate 90 mcg/actuation 2 inh inhalation Q4 PRN Shortness 10/12/21 02/01/23 Unknown aerosol inhaler Of Breath prenat.vits,iva,[id number]-[id number] 1 tab PO DAILY 02/01/23 02/01/23 01/31/23 21:00 Active Medications Generic Name Dose Route Start Last Admin Trade Name Freq PRN Reason Stop Dose Admin Penicillin G Potassium 3 mu/ 106 mls @ 100 mls/hr 02/01/23 14:11 02/02/23 20:00 Dextrose IV 02/11/23 14:10 Infused Q4H PRN Infusion GBS(+) Until Delivery Oxytocin 30 units in 500 mls @ 16 mls/hr 02/03/23 09:30 02/03/23 13:30 Pitocin IV 03/05/23 08:59 0.96 units/hr .Q24H JAJA 16 mls/hr Titration Protocol 0.96 UNITS/HR Lactated Ringer's 1,000 mls @ 125 mls/hr 02/03/23 14:45 02/03/23 14:39 Lr IV 03/05/23 14:44 125 mls/hr .Q8H JAJA Administration Misoprostol 50 mcg 02/02/23 22:58 02/03/23 03:52 Misoprostol 50 Mcg Tab PO 03/04/23 22:57 50 mcg Q4 PRN Administration contractions Past Medical History Medical History ADHD Anaphylactic reaction due to unspecified food Anxiety Bipolar 2 disorder COVID-22 December 2020 Depression History of frequent headaches Past Family History Family History Other Cancer Diabetes Heart disease Hypertension Past Surgical History Surgical History History of tonsillectomy [place] teeth extracted Social History Smoking Status: Never smoker tobacco type: cigarettes Hx Alcohol Use: No Hx Substance Use: No Physical Exam Vital Signs Last Vital Signs Temp 36.7 C 02/03/23 14:49 Pulse 82 02/03/23 15:07 Resp 16 02/03/23 12:30 BP 144/92 H 02/03/23 15:07 Pulse Ox 98 02/03/23 15:06 Testing Laboratory Results 02/01/23 08:15 Blood Type O Positive 02/01/23 08:12 Antibody Screen NEGATIVE 02/01/23 08:12
[2023-02-03] MEDS ORDERED: BUPIVACAINE 0.25% PF 30 ML VIAL EPI PRN (15:37)
[2023-02-03] MEDS ORDERED: LIDOCAINE 2% MPF LOCAL 5 ML VIAL EPI PRN (15:37)
[2023-02-03] MEDS ORDERED: fentaNYL citrate PF 100 MCG/2 ML VIAL EPI STA (15:37)
[2023-02-03] MEDS ORDERED: fentaNYL 2MCG/ML ROPIVACAINE 1.25MG/ML 100 ML BAG EPI PRN (15:37)
[2023-02-03] MEDS ORDERED: SODIUM CHLORIDE 0.9% PF INJ 10 ML VIAL EPI PRN (15:37)
[2023-02-03] MEDS ORDERED: fentaNYL citrate PF 100 MCG/2 ML VIAL EPI PRN (15:37)
[2023-02-03] MEDS ORDERED: ROPIVACAINE 0.5% PF 5 MG/ML 20 ML VIAL EPI PRN (15:37)
[2023-02-03] MEDS ORDERED: LIDOCAINE 2%/EPINEPHRINE 1:200,000 20 ML PF EPI STA (15:37)
[2023-02-03] MEDS ORDERED: SODIUM CHLORIDE 0.9% PF INJ 10 ML VIAL EPI STA (15:37)
[2023-02-03] MEDS ORDERED: NALOXONE HCL 0.4 MG/1 ML VIAL/CARP IV PRN (15:37)
[2023-02-03] MEDS ORDERED: BUPIVACAINE 0.25% PF 30 ML VIAL EPI STA (15:37)
[2023-02-03] MEDS ORDERED: NALOXONE HCL 1 MG in SODIUM CHLORIDE 0.9% 1000ML 1,000 ML IV PRN (15:37)
[2023-02-03] MEDS ORDERED: ONDANSETRON INJ 2 MG/ML 2 ML VIAL IV PRN (15:37)
[2023-02-03] MEDS ORDERED: ePHEDrine sulfate 50 MG/ML AMP IV PRN (15:37)
--- NOTE | 2023-02-03 17:21 | Delivery Summary ---
Vaginal Delivery Summary Date of Service February 03, 2023 Pt fully dilated and pushing, placed in dorsal lithotomy position, prepped and draped in usual fashion, pushed for five min, delivered alive viable male in CLAUDETTE position, nuchal cord around the neck x 1 , reduced, placed the infant on the mothers abdomen, bulb suctioned nose and mouth, cord clamped and cut by the FOB. placenta delivered spontaneously and complete. primary vaginal laceration noted, repaired with 3.0 Vicryl , one figure of stitch placed. IV Pitocin started. Pt tolerated the delivery well. Pt planning on breast feeding and desires control pills eventually as the method of contraception. Supervising Physician Co-Signing Physician Notes Estella LUJAN
--- NOTE | 2023-02-03 17:23 | Delivery Summary ---
Vaginal Delivery Summary Date of Service February 03, 2023 Supervising Physician Co-Signing Physician Notes Estella LUJAN
[2023-02-03] MEDS ORDERED: HYDROCORTISONE ACETATE 25 MG SUPP PR PRN (17:26)
[2023-02-03] MEDS ORDERED: IBUPROFEN 600 MG TAB PO PRN (17:26)
[2023-02-03] MEDS ORDERED: ACETAMINOPHEN 325 MG TAB PO PRN (17:26)
[2023-02-03] MEDS ORDERED: DIPHTHERIA/TETANUS/PERTUSSIS Vaccine (Tdap, Age 7+yrs) 0.5mL SYR/VL IM ONE (17:26)
[2023-02-03] MEDS ORDERED: bisacodyL 10 MG SUPP PR PRN (17:26)
[2023-02-03] MEDS ORDERED: BENZOCAINE 20% AER SPR 82.5 GM CAN EXT PRN (17:26)
--- NOTE | 2023-02-03 17:37 | Anesthesia Procedure Note ---
Date of Service February 03, 2023 Anesthesia Post Epidural Note Vital Signs Vital Signs: Temp Pulse Resp BP Pulse Ox 36.5 C 86 20 137/86 100 02/03/23 15:45 02/03/23 17:21 02/03/23 15:45 02/03/23 17:21 02/03/23 17:01 Pain Intensity Bilateral Lower Abdomen: Pain Intensity: 0 Notes Mental Status: alert / awake / arousable and participated in evaluation Nausea / Vomiting: adequately controlled Pain: adequately controlled Airway Patency, RR, SpO2: stable & adequate BP & HR: stable & adequate Hydration State: stable & adequate Neuraxial Anesthesia: was administered and sensory block is resolving Anesthetic Complications: no major complications apparent Epidural: Removed without complications and With tip intact
[2023-02-03] MEDS: DOCUSATE SODIUM 100 MG CAP PO SCH (20:14)
[2023-02-04 06:33] LABS: Hematocrit (blood only) 32.2 % (37.0-47.0); Hemoglobin 10.4 g/dl (12.0-16.0); Mean Corpuscular Hemoglobin 27.3 pg (25.0-34.0); Mean Corpuscular Hgb Conc 32.3 g/dL (32.0-36.0); Mean Corpuscular Volume 84.5 fL (80.0-100.0); Mean Platelet Volume 10.8 fL (9.4-12.4); Platelet Count 161 K/uL (130-400); RDW Coefficient of Variation 14.1 % (11.5-14.5); RDW Standard Deviation 43.5 fL (36.4-46.3); Red Blood Count 3.81 M/uL (4.20-5.40); White Blood Count 12.34 K/ul (4.8-10.8)
[2023-02-04] MEDS: DOCUSATE SODIUM 100 MG CAP PO SCH (07:33)
[2023-02-04] MEDS ORDERED: PRENATAL VITAMIN 1 TAB PO SCH (08:00)
--- NOTE | 2023-02-04 11:28 | Obstetrical Progress Note ---
Date of Service February 04, 2023 Assessment & Plan (1) Normal course: PPD #1 pt doing well pt wishes to be discharged home Subjective Ambulation: ambulating normally Voiding: no voiding problems Passing Gas:: Yes Diet Tolerance:: regular diet Lochia:: Small Feeding Type:: breast feeding Review of Systems All systems reviewed & are unremarkable except as noted in HPI & below Physical Exam Constitutional WD/WN, vitals as above well developed and well nourished Eyes PERRL, conjunctivae normal, anicteric sclerae Neck trachea midline, no thyromegaly Respiratory normal respiratory effort, lungs clear to auscultation Auscultation: no crackles, no rales and no wheezes Cardiovascular RRR, no murmur, no edema Gastrointestinal (Abdomen) normal bowel sounds, soft, nontender, no hepatosplenomegaly Uterus is below umbilicus Musculoskeletal no cyanosis or clubbing, extremities motor strength 5/5 Skin no rashes, warm and dry Neurologic patellar DTR's 2+ bilat, sensation intact Psychiatric A+Ox3, euthymic affect Genitourinary normal external appearance Results & Data Vital Signs (Past 12 Hours) Vital Signs Temp Pulse Resp BP Pulse Ox O2 Del Method 02/04/23 11:00 36.8 C 82 16 112/76 97 Room Air 02/04/23 07:30 36.5 C 76 16 114/75 97 Room Air 02/04/23 04:20 36.6 C 84 18 109/75 99 Room Air 02/04/23 00:35 36.8 C 89 18 113/75 97 Room Air
--- NOTE | 2023-02-04 13:00 | Psychiatric Consultation ---
Date of Consultation February 04, 2023 Psych History Identifying Data delivered 02/03/2023 consult is for "needs Adderall for her ADHD prescribed." History of Present Illness Patient was seen last hs and earlier this am by our liaison nurses and identified no acute issues other than would like to have a psychiatric provider closer to home. Reviewed previous medication list via [employer] and PDMP and appears was taking Buspar 15 mg daily and Adderall XR until April 2023, Last script for Lamcital in June via a prescriber with [facility] in [place]. She is actively and plans to continue. Service discussed with patient that lamictal is typically avoided in due to risk of rash in infant and although reportedly carries a dx of bipolar II, no acute mood symptoms that would necessitate immediate rx (no SI, helen, etc). best to be monitored by an outpatient prescriber. Will complete [place] depression scale as baseline so can be monitored for post depression. Her outpatient prescriber may or may not resume Adderall in , many do not rx Adhd meds. Will complete ASRS was well. She will be directed to call [facility] psychiatry to request an appointment and is aware if lengthy wait could likely call previous prescriber for an interim appointment. Dr. Donald updated and patient and provider satisfied with assessments rather than full formal consult as no rx of Adderall will be provided. Allergies Allergy/AdvReac Type Severity Reaction Status Date / Time No Known Allergies Allergy Verified 02/01/23 08:11 Home Medications Medication Instructions Recorded Confirmed Type albuterol sulfate 90 mcg/actuation 2 inh inhalation Q4 PRN Shortness 10/12/21 02/01/23 History aerosol inhaler Of Breath prenat.vits,iva,yvt-xnmf-pzlke 1 tab PO DAILY 02/01/23 02/01/23 History Patient History Medical History ADHD Anaphylactic reaction due to unspecified food Anxiety Bipolar 2 disorder COVID-22 December 2020 Depression History of frequent headaches Surgical History History of tonsillectomy [place] teeth extracted Family History Other Cancer Diabetes Heart disease Hypertension Social History Smoking Status: Never smoker Tobacco Type: E-cigarettes / Vaping Hx Alcohol Use: No Hx Substance Use: No Preferred Language: Divehi Communication Ability: Effective Marketing Assistant [employer] Required: No Beliefs That Will Affect Care: None marital status: Current Living Situation: Spouse Current Living Situation Comment: and daughter current occupational status: unemployed Other Information That Helps Us Care for You: No Feels Safe at Home: Yes Safety Concerns: Feels Safe At This Time Gender Identity: Female Assistive Devices: None Physical Exam Vital Signs (Past 24 Hours): Last Vital Signs Temp 36.8 C 02/04/23 11:00 Pulse 82 02/04/23 11:00 Resp 16 02/04/23 11:00 BP 112/76 02/04/23 11:00 Pulse Ox 97 02/04/23 11:00 O2 Del Method Room Air 02/04/23 11:00 Results & Data (PSY) Medications Administered Acetaminophen (Acetaminophen 325 Mg Tab) 650 mg PO Q6H PRN PRN Reason: Pain Stop: 03/05/23 17:25 Last Admin: 02/04/23 00:51 Dose: 650 mg Documented By: SR Benzocaine (Benzocaine 20% Aer Spr 82.5 Gm Can) 1 appln EXT PRN PRN PRN Reason: Perineal Discomfort Stop: 03/05/23 17:25 Last Admin: 02/03/23 19:27 Dose: 1 appln Documented By: RNRashel Docusate Sodium (Docusate Sodium 100 Mg Cap) 100 mg PO DAILY@08,21 [facility] Stop: 03/05/23 20:59 Last Admin: 02/04/23 07:33 Dose: 100 mg Documented By: Admin: 02/03/23 20:14 Dose: 100 mg Documented By: SR Penicillin G Potassium 3 mu/ (Dextrose) 106 mls @ 100 mls/hr IV Q4H PRN PRN Reason: GBS(+) Until Delivery Stop: 02/11/23 14:10 Last Infusion: 02/02/23 20:00 Dose: 0 mls/hr Documented By: Admin: 02/02/23 18:11 Dose: 100 mls/hr Documented By: Infusion: 02/02/23 14:06 Dose: 100 mls/hr Documented By: Admin: 02/02/23 13:02 Dose: 100 mls/hr Documented By: Infusion: 02/02/23 09:59 Dose: 100 mls/hr Documented By: Admin: 02/02/23 08:55 Dose: 100 mls/hr Documented By: Infusion: 02/02/23 05:35 Dose: 0 mls/hr Documented By: Admin: 02/02/23 04:25 Dose: 100 mls/hr Documented By: Infusion: 02/02/23 01:02 Dose: 0 mls/hr Documented By: Admin: 02/01/23 23:56 Dose: 100 mls/hr Documented By: Infusion: 02/01/23 20:55 Dose: 0 mls/hr Documented By: Admin: 02/01/23 19:55 Dose: 106 mls/hr Documented By: Infusion: 02/01/23 16:50 Dose: 0 mls/hr Documented By: Admin: 02/01/23 15:47 Dose: 100 mls/hr Documented By: IVA Oxytocin (Pitocin) 30 units in 500 mls @ 999 mls/hr IV .Q31M JAJA; Protocol Stop: 03/05/23 08:59 Last Admin: 02/03/23 20:56 Dose: Not Given Documented By: Admin: 02/03/23 20:55 Dose: Not Given Documented By: Titration: 02/03/23 17:05 Dose: 59.94 units/hr, 999 mls/hr Documented By: Titration: 02/03/23 15:00 Dose: 1.08 units/hr, 18 mls/hr Documented By: Titration: 02/03/23 13:30 Dose: 0.96 units/hr, 16 mls/hr Documented By: Titration: 02/03/23 13:00 Dose: 0.84 units/hr, 14 mls/hr Documented By: Titration: 02/03/23 12:00 Dose: 0.72 units/hr, 12 mls/hr Documented By: Titration: 02/03/23 11:30 Dose: 0.6 units/hr, 10 mls/hr Documented By: Titration: 02/03/23 11:00 Dose: 0.48 units/hr, 8 mls/hr Documented By: Titration: 02/03/23 10:30 Dose: 0.36 units/hr, 6 mls/hr Documented By: Titration: 02/03/23 10:00 Dose: 0.24 units/hr, 4 mls/hr Documented By: Admin: 02/03/23 09:28 Dose: 0.12 units/hr, 2 mls/hr Documented By: JUSTINE Co-signed By: YAKOV Lactated Ringer's (Lr) 1,000 mls @ 125 mls/hr IV .Q8H [facility] Stop: 03/05/23 14:44 Last Admin: 02/03/23 21:03 Dose: Not Given Documented By: Infusion: 02/03/23 15:35 Dose: 125 mls/hr Documented By: Infusion: 02/03/23 15:16 Dose: 999 mls/hr Documented By: Admin: 02/03/23 14:39 Dose: 125 mls/hr Documented By: JUSTINE Ibuprofen (Ibuprofen 600 Mg Tab) 600 mg PO Q4H PRN PRN Reason: Pain/REY/Cramping/Fever Stop: 03/05/23 17:25 Last Admin: 02/04/23 08:12 Dose: 600 mg Documented By: MYRA Misoprostol (Misoprostol 50 Mcg Tab) 50 mcg PO Q4 PRN PRN Reason: contractions Stop: 03/04/23 22:57 Last Admin: 02/03/23 03:52 Dose: 50 mcg Documented By: JOSESITO Peterson Multivit/[place]/Iron/Folic Ac ( Vitamin 1 Tab) 1 tab PO DAILY@08 [facility] Stop: 03/06/23 07:59 Last Admin: 02/04/23 07:33 Dose: 1 tab Documented By: MYRA Coding Level of Care Code None Diagnoses
[2023-02-04] MEDS ORDERED: bisacodyL 5 MG TABEC PO SCH (20:00)
== END 2023-02-04 18:10 | disposition home or self-care (01) | DRG 806 ==
LOC: 4S1 07:27 → 4E2 02-03 19:35

== ENCOUNTER 2024-02-20 07:32 | Inpatient (IN) ==
--- OUTSIDE RECORDS SUMMARY | 2024-02-20 07:42 | External Medical Summary ---
Author Name Unknown Address Unknown Organization K01:[facility] [place] [address] [place] [id number] Laboratory Report Ordering Provider Test Date Status TAINA SAUNDERS 01/25/2024 15:26:55 Final Observation Date Value Abnormality Reference (Units ) Status Streptococcus agalactiae DNA [Presence] in Specimen by JUAN with probe detection 01/25/2024 15:26:55 Positive Abnormal Negative Final Group B Streptococcus detect ed by culture-enhanced PCR (amplified probe). [facility] - [facility] 01/25/2024 15:26:55 14.2 Final [facility]BS [facility] - [facility] 01/25/2024 15:26:55 0.0 Final Performing Location [facility] [place] [address] [place] [address]
--- OUTSIDE RECORDS SUMMARY | 2024-02-20 07:42 | External Medical Summary | Summary of Care ---
Author Name Unknown Organization [facility] Address [address] [facility] [address] Phone [phone] Care Team Providers Care Seat Cover Maker Name Role Phone Hank Spivey MD Primary Care Provider [phone] Reason for Visit * Reason Comments [facility] 36w2d Encounter Details Date Type Department Care Team (Late st Contact Info) Description 01/25/2024 3:00 PM EDT Office Visit Gynecology/Obstetri maria teresa Ortiz [address] [facility] [place] [address] Sydnie Davis CRNP [address] [place] [address] Nurse Angel [facility] Jayla [address] [facility] [place] [address] Encounter for supervision of other normal in third trimester*; Bipolar disease during , antepartum (HCC); Obesity, Class I, BMI 30.0-34.9 (see actual BMI); Short interval between pregnancies affecting , antepartum; cardiac echogenic focus, antepartum, single or unspecified fetus; Antepartum anemia complicating ; Uterine size date discrepancy Allergies Active Allergy Reactions Criticality Noted Date Comments Food (See Comments) 01/09/2019 Unknown trigger to acute allergic reaction with chest tightness, lip and tongue swelling. documented as of this encounter (statuses as of 01/25/2024) Medications Medication Sig Dispensed Refills Start Date End Date Status Albuterol Sulfate HFA 108 (90 Base) MCG/ACT Inhalation Aerosol Solution Inhale 2 Puffs by mouth every 4 hours as needed for Wheezing. 18 g 5 08/20/2021 Active [facility] Gummy 0.18-25 MG Oral Tablet Chewable daily 06/10/2022 Active Iron 325 (65 Fe) MG Oral Tablet Take by mouth. Active Vitamin B-12 1000 MCG Oral Tablet (Cyanocobalamin) Take 1 Tablet by mouth in the morning. 30 Tablet 5 01/17/2024 Active documented as of this encounter (statuses as of 01/25/2024) Active Problems Problem Noted Date Diagnosed Date Antepartum anemia complicating 024 Overview: Vitron C at 28 wks, recheck labs 32 wks cardiac echogenic focus, antepartum 2023 Overview: Low risk NIPT, no further testing advised Last Assessment & Plan: At your request, Sheila was seen today due to echogenic focus in the left ventricle. We discussed the debatable and rare association (ie. less than 1%) between isolated echogenic focus in LV and aneuploidy. It has been reported as a weak ultrasound marker for Down syndrome. Given the fact that there are no other markers seen on ultrasound, her risk of having a fetus with Down syndrome remains overall low. In the setting of previous low-risk aneuploidy screening, no further testing is recommended for this finding. Please cancel quad screen that was ordered. This is not indicated with previous low risk NIPT and increases risk for false positive result. [facility] Health counseling 08/04/2023 Overview: Problem Action Taken Date entered Entered by Date resolved Current needs or questions Patient denies having any current needs or questions 08/04/2023 Tameka Goyal RN 08/04/2023 Problem Action Taken Date entered Entered by Date resolved Current needs or questions Patient denies having any current needs or questions 09/14/2023 Tameka Goyal RN 09/14/2023 Problem Action Taken Date entered Entered by Date resolved Current needs or questions + nausea again comfort measures discussed Patient denies having any current needs or questions 10/04/2023 Perlita Van RN 10/04/2023 Problem Action Taken Date entered Entered by Date resolved Current needs or questions Patient denies having any current needs or questions 01/25/2024 Tameka Goyal RN 01/25/2024 Short interval between pregn ancies affecting , antepartum 07/07/2023 Supervision of normal 07/07/2023 Hyperinsulinemia 05/16/2023 Hyperlipidemia 05/16/2023 ADHD (attention deficit hype ractivity disorder), inattentive type 07/23/2022 Last Assessment & Plan: The patient is on Adderall prior to the and she has since stopped her Adderall. Since going off of the Adderall, she has has significant difficulty with getting through the day and at times is frustrated with this. We discussed the risks of the medication including increased risk of growth restriction. We also discussed the benefits of adequately treating her attention deficit hyperactivity disorder. At this point, it may be in her best interest to consider going back on the Adderall. If she does go back on the Adderall, the recommended evaluation for growth every 4 to 6 weeks. Bipolar disease during , antepartum 10/2020 Overview: History of anxiety, depression, and bipolar II disorder. Diagnosed [id number] Not on any meds as of 07/07/2023 Last Assessment & Plan: CONSIDERATIONS: Untreated maternal anxiety and depression may be associated with an increased risk of multiple poor obstetrical outcomes including miscarriages, low weight, and delivery. Women with a history of anxiety or depression are at risk for recurrence both during and/or the period. Studies of first-trimester SSRI exposure do not demonstrate consistent data to support an increased risk for structural malformations. Anti-anxiety or depression medications have been associated with transient effects (withdrawal syndrome). and delivery can worsen the symptoms of bipolar disorder. and women have a sevenfold higher risk of hospital admission than those who have not recently been . Rates of relapse range from 32% to 67%. There also is an increased risk of psychosis as high as 46%. Stopping treatment may increase the risk of recurrent mood episodes, particularly if medications are discontinued abruptly (eg, in less than two weeks). Women who discontinue medication within 6 months of conception are more than twice as likely to suffer a recurrence of the disease. Pt currently feels that Lamictal alone is not working and would like to discuss restarting Adderall with psych provider. RECOMMENDATIONS: Mental illness can and should be treated during when the benefits of treatment outweigh potential risks. Referral to behavioral health services as clinically indicated. For bipolar patients who are , we suggest maintenance pharmacotherapy rather than no treatment. The decision to treat bipolar disorder during should be determined on an individualized basis and treatment should be provided by general psychiatrists in collaboration with obstetricians and primary care clinicians. Obesity, Class I, BMI 30.0-34.9 (see actual BMI) 02/04/2021 Overview: Early glcola Last Assessment & Plan: DISCUSSION: 1. Discussed obstetrical risks associated with class I obesity (pre- BMI of 30 to 34.9) to include increased incidence of the following: spontaneous miscarriage, recurrent loss, diabetes in , hypertension/pre-eclampsia, IUFD, macrosomia and shoulder dystocia, hemorrhage or infection, venous thromboembolism, increased length of labor and delivery, complications with anesthesia, as well as a possibly increased risk of congenital anomalies (neural tube defects, cardiovascular, orofacial). 2. Reviewed that the accuracy of ultrasound at diagnosing anomalies is significantly decreased for women with an increased BMI. RECOMMENDATIONS: 1. Recommend restricting weight gain during to 11-20 pounds. Consider referral for nutrition consult. 2. Recommend evaluation for signs and symptoms (snoring, excessive daytime sleepiness witnessed apnea or unexplained hypoxia) of obstructive sleep apnea. If any of these are present, referral to Sleep Medicine specialist for further evaluation should be considered. Bipolar II disorder 08/20/2020 Overview: Taking buspar and lamicatal at NOB, following with psychologist Estimated Date of Delivery Comme nts Yes 02/20/2024 Based on Ultraso und documented as of this encounter (statuses as of 01/25/2024) Resolved Problems Problem Noted Date Diagnosed Date Resolved Date GBS (group B Streptococcus c arrier), +RV culture, currently 01/07/2023 03/21/2023 Health counseling 11/18/2022 03/21/2023 Overview: Problem Action Taken Date entered Entered by Date resolved Current needs or questions Patient denies having any current needs or questions 11/18/2022 Tameka Goyal RN 11/18/2022 Problem Action Taken Date entered Entered by Date resolved Current needs or questions Patient denies having any current needs or questions 12/06/2022 Perlita Van RN 12/06/2022 Problem Action Taken Date entered Entered by Date resolved Current needs or questions Patient denies having any current needs or questions 12/16/2022 Tameka Goyal RN 12/16/2022 Problem Action Taken Date entered Entered by Date resolved Current needs or questions Patient denies having any current needs or questions 12/29/2022 Tameka Goyal RN 12/29/2022 Problem Action Taken Date entered Entered by Date resolved 3rd trimester education education given 12/29/2022 Tameka Goyal RN 12/29/2022 Problem Action Taken Date entered Entered by Date resolved Current needs or questions Patient denies having any current needs or questions 01/05/2023 Tameka Goyal RN 01/05/2023 Problem Action Taken Date entered Entered by Date resolved Current needs or questions Patient denies having any current needs or questions 01/12/2023 Tameka Goyal RN 01/12/2023 Problem Action Taken Date entered Entered by Date resolved Current needs or questions Patient denies having any current needs or questions 01/26/2023 Tameka Goyal RN 01/26/2023 Problem Action Taken Date entered Entered by Date resolved Post education Given` 03/21/2023 Tameka Goyal RN 03/21/2023 Antepartum anemia complicating 11/05/2022 03/21/2023 Maternal asthma complicating 08/18/2022 03/21/2023 Overview: Pt diagnosed with asthma in high school Uses inhaler as needed, mostly when sick States she last used inhaler about 7 months ago Reports no increase in asthma symptoms at this time Last Assessment & Plan: CONSIDERATIONS: Asthma symptoms may improve, worsen or remain unchanged in severity in . Asthma is generally managed the same in as in the non- patient, as asthma-control medications are considered safe in . If asthma is well-controlled with medications prior to , it is recommended to continue the same medication regimen during . A patient should seek medical care immediately if an asthma flare does not respond to therapy. Mild and well-controlled moderate asthma can be associated with excellent maternal and outcomes. Severe and poorly controlled asthma may be associated with increased morbidity and mortality. Asthma management includes monitoring of lung function with pulmonary function testing (when indicated), avoidance of triggers (such as tobacco smoke, mold, dust mite exposure, animal dander and cockroaches), and a step-care approach to pharmacologic therapy based on the severity of the patient's asthma. RECOMMENDATIONS: Inhaled corticosteroids are the mainstay of therapy for all patients except those with intermittent asthma. o If patients are routinely requiring rescue inhaler (such as albuterol, Ventolin, ProAir, Atrovent, or Proventil) use more than twice weekly, we recommend adding a low-dose inhaled corticosteroid. [Pulmicort (budesonide) is preferred to use in .] o If patients are routinely requiring rescue inhaler use daily, we recommend adding a combined low-dose inhaled corticosteroid/long-acting beta-agonist [such as Advair (fluticasone/salmeterol) or Symbicort (budesonide/formoterol)] or a medium dose inhaled corticosteroid. o Patient should discuss these treatment options with her primary OB provider or PCP. Typically, patients do not need stress dose steroids as long as they continue their usual dose perioperatively (or during labor) and do not have primary renal failure or other problems with the pituitary axis. Medications such as prostaglandin F2a (including Hemabate), ergonovine, and indomethacin (in patients who are aspirin allergic) should be used with caution. , supervision, high-risk 08/18/2022 03/21/2023 Family history of dwarfism 08/18/2022 0 03/21/2023 Overview: Patient's sister w/ dwarfism. Declined [facility] genetics referral at this time. Obesity in , antepartum 02/04/2021 03/21/2023 Overview: The patient's pre-gravid weight: 193# Height 5'5" BMI: 32.1 C/W class 1 Lab Results Component Value Date/Time 50-G GESTATIONAL GLUCOSE, 1 HOUR - [facility] 84 07/09/2022 02:43 PM Last Assessment & Plan: Patient passed early glucose screen. COVID-19 affecting , antepartum 01/12/2021 08/18/2022 Overview: dx'd 12/2020 Last Assessment & Plan: Medication exposure during f irst trimester of 01/12/2021 03/21/2023 Overview: Medication exposure = Lamictal & Adderall Initially, pt discontinued both medications with KNOWLEDGE OF THE . Pt recently restarted Lamictal; wishes to restart Adderall soon. Last Assessment & Plan: Patient is not currently taking any medications for bipolar disease or for ADHD. She reports feeling well off the meds at this time. We discussed the good safety profile of these medications and the patient understands that it is reasonable to restart these meds if she feels it would be beneficial. , normal first 08/20/202008/05 Overview: Problem Action Taken Date entered Entered by Date resolved nutrition provided due date letter for pt to attend [facility] 10/13/2020 Anamaria Bernabe RN 10/13/2020 2nd trimester education reviewed w/pt 10/13/2020 Anamaria Bernabe RN 10/13/2020 Problem Action Taken Date entered Entered by Date resolved Current needs or questions Patient denies having any current needs or questions 11/11/2020 Anamaria Bernabe RN 11/11/2020 Problem Action Taken Date entered Entered by Date resolved Current needs or questions control discussed Undecided. Undecided on breast vs bottle Patient denies having any current needs or questions 01/12/2021 Perlita Van RN 01/12/2021 Problem Action Taken Date entered Entered by Date resolved provided a [employer] form for pt to review 01/27/2021 Anamaria Bernabe RN 01/27/2021 Problem Action Taken Date entered Entered by Date resolved Current needs or questions Patient denies having any current needs or questions 02/12/2021 Perlita Van, RN 02/12/2021 Adjustment disorder with depressed mood 05/28/2014 08/18/2022 Chronic tonsillitis 04/07/2010 05/28/20 14 Dyspnea and respiratory abnormality 04/07/2010 05/28/2014 Overview: ICD-10 update of inactive term Hypertrophy of tonsils and adenoids 04/07/2010 05/28/2014 RECURRENT STREP SORE THROATS 04/07/2010 05/28/2014 ADVANCE DIRECTIVE INFORMATION 05/24/2005 09/06/2013 Overview: Not applicable (under age of 18) Viral warts 07/28/2004 09/06/2013 Overview: ICD-10 update of inactive term Tinea corporis 02/14/2004 09/06/2013 CELLULITIS, TOE, RIGHT MIDDLE 01/06/2004 02/14/2004 CONTUSION OF TOE, RIGHT MIDDLE 01/06/2004 02/14/2004 Conjunctivitis 08/20/2003 01/06/2004 RHINITIS, LIKELY ALLERGIC 05/01/2002 ACUTE PHARYNGITIS 2001 01/06/2004 ACUTE URI NOS 2001 01/06/2004 Viral exanthemata 2001 01/06/2004 documented as of this encounter (statuses as of 01/25/2024) Immunizations Name Administration Dates Next Due DTaP Dipth/Tet/Acell Pertussis (Infanrix), Peds 03/15/2006,05/01/2002,05/10/2001,03/28,01/13/2001 HIB PRP-T, 4 dose (ActHib) 05/01/2002,,03/28/2001,01/13 HPV Vaccine, 4-Valent 11/29/2014,08/06/2014,05/07 Hep A - Hepatitis A (ped/ado le, 1-18 Yrs) 03/26/2009,03/15/2006 Hepatitis B, 0-19 yrs 07/26/2001,2000,10/06 IPV - Polio Virus Vaccine (Inact) 2005,05/23/2002,03/28/2001,01/13 MMR - Measles/Mumps/Rubella Vaccine 03/15/2006,0 05/01/2002 Meningococcal Conjugate Vacc ine (Menactra/Menveo) 04/05/2017,05/03/2012 PPD 08/27/2019,08/20/2019,12/06/2017 Pneumococcal Conjugate Vacci ne, 7 Valent 05/23/2002,05/10/2001,03/28/2001,01/13 Seasonal Influenza Intranasal 08/22/2007 Seasonal Influenza, Split, I IV3, With Preserve, Inj 05/28/2014,10/03/2006,12/04/2002 TDAP (age 10 and older)(Boostrix) 01/27/2021,09/2016,05/03/2012 Varicella Vaccine (Chicken Pox) 03/26/2009,05/23 documented as of this encounter Social History Tobacco Use Types Packs/Day Years Used Date Smoking Tobacco: Former Passive Smoke Exposure: Never Smokeless Tobacco: Never Tobacco Cessation:Counseling Given: Not Answered Comments:no passive smoke Alcohol Use Standard Drinks/Week Comments Not Currently 0 (1 standard drink = 0.6 oz pur e alcohol) denies during 2021 PHQ-2 Answer Date Recorded PHQ-2 Score 0 05/01/2019 Hunger Vital Sign Answer Date Recorded Within the past 12 months, y ou worried that your food would run out before you got the money to buy more. Never true 03/21/20 23 Within the past 12 months, t he food you bought just didn't last and you didn't have money to get more. Never true 03/21/2023 [place] Depression Scale Answer Date Recorded [place] Depression Scale Total 0 01/16/2024 The thought of harming myself has occurred to me . Never 01/16/2024 Estimated Date of Delivery Comme nts Yes 02/20/2024 Based on Ultraso und Sex and Gender Information Value Date Recorded Sex Assigned at Female 06/10/2022 1:52 PM EDT Gender Identity Female 06/10/2022 1:52 PM EDT Sexual Orientation Straight 06/10/2022 1: 52 PM EDT Job Start Date Occupation Industry Not on file Not on file Not on file documented as of this encounter Last Filed Vital Signs Vital Sign Reading Time Taken Comments Blood Pressure 120/78 01/25/2024 3:03 PM EDT Pulse - - Temperature - - Respiratory Rate - - Oxygen Saturation - - Inhaled Oxygen Concentration - - Weight 101.6 kg (224 lb) 01/25/2024 3:03 PM EDT Height 165.1 cm (5' 5") 01/25/2024 3:03 PM EDT Body Mass Index 37.28 01/25/2024 3:03 PM EDT documented in this encounter Progress Notes * Sydnie Davis CRNP - 01/25/2024 3:27 PM EDT 36w2d No concerns. Baby is active. No contractions, bleeding, LOF. Size >dates, growth u/s scheduled. GBS today. Cat Driver Documentation Provider requested kennel worker. Name of kennel worker: KAYLENE Farley documented in this encounter Nursing Notes * Tameka Goyal RN - 01/25/2024 4:05 PM EDT Patient seen by [facility] Lens Inserter. Patient denies any questions or concerns. have you cut down with your smoking n/a have you quit n/a have you seen a shale planer operator no have you seen a social worker masters no are you receiving counseling no have you received dental care during your no are you enrolled in WIC yes do you receive food stamps or voss assistance no Tameka Goyal RN * Nichole Rosario LPN - 01/25/2024 3:01 PM EDT Chief Complaint Patient presents with [facility] 36w2d Pt is with no concerns. GBS today. Nichole Rosario LPN documented in this encounter Plan of Treatment Upcoming Encounters Date Type Department Care Team (Late st Contact Info) Description 02/02/2024 2:00 PM EDT Imaging Radiology [address] [place] [address] Pending Results Name Type Priority Associated Diagnoses Date /Time GROUP B STREP CULTURE/PCR Lab Routine Encounter for supervision of other normal in third trimester 01/25/2024 3:26 PM EDT Scheduled Orders Name Type Priority Associated Diagnoses Orde r Schedule GROUP B STREP CULTURE/PCR Lab Routine Encounter for supervision of other normal in third trimester Expected: 01/25/2024, Expires: 01/24/2025 [facility] FOLLOW-UP EACH FETUS Medical Imaging Routine Uterine size date discrepancy Expected: 01/25/2024 (Approximate), Expires: 02/24/2025 Health Maintenance Due Date Last Done Comments Pneumococcal Vaccine: Pediat rics (0 to 5 Years) and At-Risk Patients (6 to 64 Years) (1 of 2 - PCV) 2006 COVID-19 Vaccine ( - 2022-2 4 season) 2023 Influenza Vaccine (FLU shot) (Season Ended) 2024 05/28/2014, 08/22/2007, 10/03/2006, Additional history exists Gonorrhea / Chlamydia Screen 07/07/202410/2022, 06/10/2022, 08/20/2020, Additional history exists Pap Smear 06/10/2025 06/10/2022 DTaP,Tdap,and Td Vaccines (9 - Td or Tdap) 01/27/2031 01/27/2021, 04/05/2017, 05/03/2012, Additional history exists Hepatitis B Completed 07/26/2001, 11/03, 2000 GARDASIL-HPV IMMUNIZATION SERIES Completed 11/29/2014, 08/06/2014, 05/28/2014 MENINGOCOCCAL (MENACTRA/MENVEO) Completed 7, 05/03/2012 documented as of this encounter Medical Devices Not on filedocumented as of this encounter Visit Diagnoses Diagnosis Encounter for supervision of other normal in third trimester- Primary Bipolar disease during , antepartum (HCC) Obesity, Class I, BMI 30.0-34.9 (see actual BMI) Obesity, unspecified Short interval between pregnancies affecting , antepartum cardiac echogenic focus, antepartum, single or unspecified fetus Antepartum anemia complicating Anemia, antepartum Uterine size date discrepancy Uterine size date discrepancy, antepartum condition or complication documented in this encounter Care Teams Seat Cover Maker Relationship Specialty Start Date End Date Hank Spivey MD [address] [place] [address] PCP - General Internal Medicine 05/12/23 documented as of this encounter
--- OUTSIDE RECORDS SUMMARY | 2024-02-20 07:42 | External Medical Summary | Summary of Care ---
Author Name Unknown Organization [facility] Address [address] [place] [facility] [place] [address] Phone [phone] Care Team Providers Care Exercise Teacher Name Role Phone Hank Spivey MD Primary Care Provider [phone] Reason for Visit * Reason Comments Return Visit [facility] Return Encounter Details Date Type Department Care Team (Late st Contact Info) Description 02/08/2024 2:45 PM EDT Office Visit Gynecology/Obstetri maria teresa Oritz [address] [facility] [place] [address] Sydnie Davis CRNP [address] [place] [address] Nurse Angel [facility] Return Jayla [address] [place] [address] Encounter for supervision of other normal in third trimester*; Bipolar disease during , antepartum (HCC); Obesity, Class I, BMI 30.0-34.9 (see actual BMI); Carrier of group B Streptococcus; Short interval between pregnancies affecting , antepartum; cardiac echogenic focus, antepartum, single or unspecified fetus; Antepartum anemia complicating Allergies Active Allergy Reactions Criticality Noted Date Comments Food (See Comments) 01/09/2019 Unknown trigger to acute allergic reaction with chest tightness, lip and tongue swelling. documented as of this encounter (statuses as of 02/08/2024) Medications Medication Sig Dispensed Refills Start Date [...] as of this encounter (statuses as of 02/08/2024) Active Problems Problem Noted Date Diagnosed Date [...] risk for false positive result. [facility] Health counseling 08/04/2023 Overview: [...] of normal 07/07/2023 Hyperinsulinemia 05/16/2023 Hyperlipidemia 05/16/2023 Carrier of group B Streptococcus 01/07/2023 ADHD (attention deficit hype ractivity disorder), inattentive [...] anxiety, depression, and bipolar II disorder. Diagnosed [id number] Not on any meds as of 07/07/2023 [...] as of this encounter (statuses as of 02/08/2024) Resolved Problems Problem Noted Date Diagnosed Date Resolved Date Health counseling 11/18/2022 03/21/2023 Overview: Problem Action [...] 03/21/2023 Overview: Patient's sister w/ dwarfism. Declined [facility] genetics referral at this time. Obesity in [...] due date letter for pt to attend [facility] 10/13/2020 Anamaria Bernabe RN 10/13/2020 2nd trimester [...] as of this encounter (statuses as of 02/08/2024) Immunizations Name Administration Dates Next Due DTaP Dipth/Tet/Acell Pertussis (Infanrix), Peds 03/15/2006 HPV Vaccine, 4-Valent 11/29/2014,08/06/2014,05/07 Hep A - Hepatitis A (ped/adole, 1-18 Yrs) 2008,03/15/2006 IPV - Polio Virus Vaccine (Inact) 03/15/2006 MMR - Measles/Mumps/Rubella Vaccine 03/15/2006 Meningococcal Conjugate Vacc ine (Menactra/Menveo) 04/05/2017,05/03/2012 PPD 08/27/2019,08/20/2019,12/06/2017 Seasonal Influenza Intranasal 08/22/2007 Seasonal Influenza, Split, I IV3, With Preserve, Inj 05/28/2014,10/03/2006 TDAP (age 10 and older)(Boostrix) 01/27/2021,09/2016,05/03/2012 Varicella Vaccine (Chicken Pox) 03/26/2009 documented as of this encounter Social History Tobacco Use Types Packs/Day Years Used Date Smoking Tobacco: Former Passive Smoke Exposure: Never Smokeless Tobacco: Never Comments:no passive smoke Alcohol Use Standard Drinks/Week [...] money to get more. Never true 03/21/2023 Berry Depression Scale Answer Date Recorded Berry Depression Scale Total 0 01/16/2024 The thought [...] Sign Reading Time Taken Comments Blood Pressure 108/68 02/08/2024 3:03 PM EDT Pulse - - Temperature - - Respiratory Rate - - Oxygen Saturation - - Inhaled Oxygen Concentration - - Weight 101.6 kg (224 lb) 02/08/2024 3:03 PM EDT Height - - Body Mass Index 37.28 02/02/2024 3:06 PM EDT documented in this encounter Progress Notes * Sydnie Davis CRNP - 02/08/2024 3:14 PM EDT 38w2d No concerns. Baby is active. No contractions, bleeding, LOF. Already has IOL scheduled. KALYENE Zepeda * Rossy Prince MED ASSIST - 02/08/2024 3:03 PM EDT 38w2d No concerns. ?membrane sweep Vaginal bleeding: no ROM: no movement: present Contractions: no Nausea: no Vomiting: no Headaches: no documented in this encounter Plan of Treatment Upcoming Encounters Date Type Department Care Team (Late st Contact Info) Description 02/15/2024 3:00 PM EDT Office Visit Gynecology/Obstetrics Jeffreymolly Ortiz [address] [place] [address] BackerOdessa CRNP [address] [place] [address] Nurse Angel [facility] Return Jayla [address] [place] [address] Health Maintenance Due Date Last Done Comments COVID-19 Vaccine ( season) 2023 Influenza Vaccine (FLU shot) (Season Ended) 2024 05/28/2014, 08/22/2007, 10/03/2006, Additional history exists Gonorrhea / Chlamydia Screen 07/07/202410/2022, 06/10/2022, 08/20/2020, Additional history exists Pap Smear 06/10/2025 06/10/2022 DTaP,Tdap,and Td Vaccines (9 - Td or Tdap) 01/27/2031 01/27/2021, 04/05/2017, 05/03/2012, Additional history exists Hepatitis B Completed 07/26/2001, 11/03, 2000 GARDASIL-HPV IMMUNIZATION SERIES Completed 11/29/2014, 08/06/2014, 05/28/2014 MENINGOCOCCAL (MENACTRA/MENVEO) Completed 04/05/2017, 05/03/2012 Pneumococcal Vaccine: Pediatrics (0 to 5 Years) and At-Risk Patients (6 to 64 Years) Aged Out No longer eligible based on patient's age to complete this topic documented as of this encounter Medical Devices Not on filedocumented as of this encounter Visit Diagnoses Diagnosis Encounter for supervision of other normal in third trimester- Primary Bipolar disease during , antepartum (HCC) Obesity, Class I, BMI 30.0-34.9 (see actual BMI) Obesity, unspecified Carrier of group B Streptococcus Carrier or suspected carrier of Group B streptococcus Short interval between pregnancies affecting , antepartum cardiac echogenic focus, antepartum, single or unspecified fetus Antepartum anemia complicating Anemia, antepartum documented in this encounter Care Teams Exercise Teacher Relationship Specialty Start Date End Date Hank Spivey MD [address] [place] [address] PCP - General Internal Medicine 05/12/23 documented as of this encounter
--- OUTSIDE RECORDS SUMMARY | 2024-02-20 07:42 | External Medical Summary | Summary of Care ---
Author Name Unknown Organization [facility] Address [address] [place] [address] Phone [phone] Care Team Providers Care Tile Shader Name Role Phone Hank Spivey MD Primary Care Provider [phone] Reason for Visit * Reason Comments [facility] Return Encounter Details Date Type Department Care Team (Late st Contact Info) Description 02/02/2024 3:00 PM EDT Office Visit Gynecology/Obstetri maria teresa Ortiz [address] [facility] [place] [address] Maxine Bacon PA-C [address] [place], [place] [address] [address] Nurse Sergey Ortiz Beginnings Return Jayla [address] [facility] [place] [address] Encounter for supervision of other normal in [...] as of this encounter (statuses as of 02/02/2024) Medications Medication Sig Dispensed Refills Start Date [...] as of this encounter (statuses as of 02/02/2024) Active Problems Problem Noted Date Diagnosed Date [...] risk for false positive result. [facility] Health counseling 08/04/2023 Overview: [...] anxiety, depression, and bipolar II disorder. Diagnosed [id number] Not on any meds as of 07/07/2023 [...] as of this encounter (statuses as of 02/02/2024) Resolved Problems Problem Noted Date Diagnosed Date Resolved Date Health counseling 11/18/2022 03/21/2023 Overview: Problem Action Taken Date entered Entered by Date resolved Current needs or questions Patient denies having any current needs or questions 11/18/2022 Tameka Goyal RN 11/18/2022 Problem Action Taken Date entered Entered by Date resolved Current needs or questions Patient denies having any current needs or questions 12/06/2022 Perlita aVn RN 12/06/2022 Problem Action Taken Date entered [...] 03/21/2023 Overview: Patient's sister w/ dwarfism. Declined [facility] genetics referral at this time. Obesity in [...] due date letter for pt to attend [facility] 10/13/2020 Anamaria Bernabe RN 10/13/2020 2nd [...] as of this encounter (statuses as of 02/02/2024) Immunizations Name Administration Dates Next Due DTaP [...] money to get more. Never true 03/21/2023 [place] Depression Scale Answer Date Recorded [place] Depression Scale Total 0 01/16/2024 The thought [...] Sign Reading Time Taken Comments Blood Pressure 108/66 02/02/2024 3:06 PM EDT Pulse - - Temperature - - Respiratory Rate - - Oxygen Saturation - - Inhaled Oxygen Concentration - - Weight 103.1 kg (227 lb 3.2 oz) 02/02/2024 3:06 PM EDT Height 165.1 cm (5' 5") 02/02/2024 3:06 PM EDT Body Mass Index 37.81 02/02/2024 3:06 PM EDT documented in this encounter Progress Notes * Odessa Lal CRNP - 02/02/2024 3:37 PM EDT 37w3d Growth scan today. Good mvmt, no ctx, leaking, bleeding. Desires IOL around 40 wks, will have nursing schedule. Labor instructions provided. Aware of +GBS. 1 week return. KAYLENE Alvarado documented in this encounter Nursing Notes * Renetta Dominguez LPN - 02/02/2024 3:17 PM EDT 37w3d Denies concerns Had growth US today- 56%, ANA 23.4cm documented in this encounter Plan of Treatment Upcoming Encounters Date Type Department Care Team (Late st Contact Info) Description 02/08/2024 2:45 PM EDT Office Visit Gynecology/Obstetrics Madalyn Ortiz [address] [place] [address] Sydnie Davis CRNP [address] [place] [address] Nurse Angel [facility] Return Jayla [address] [place] [address] Health Maintenance Due Date Last Done Comments [...] antepartum documented in this encounter Care Teams Tile Shader Relationship Specialty Start Date End Date Hank Spivey MD [address] [place] [address] PCP - General Internal Medicine 05/12/23 documented as of this encounter
--- OUTSIDE RECORDS SUMMARY | 2024-02-20 07:42 | External Medical Summary | Summary of Care ---
Author Name Unknown Organization [facility] Address [address] [place] [place] [address] Phone [phone] Care Team Providers Care Payroll Services Analyst Name Role Phone Hank Spivey MD Primary Care Provider [phone] Reason for Visit * Reason Comments [facility] Return 36w2d Encounter Details Date Type Department Care Team (Late st Contact Info) Description 01/25/2024 3:00 PM EDT Office Visit Gynecology/Obstetri maria teresa Ortiz [address] [facility] [place] [address] Sydnie Davis CRNP [address] [place] [address] Nurse Angel [facility] Return Jayla [address] [facility] [place] [address] Encounter for supervision of other normal in [...] risk for false positive result. [facility] Health counseling [...] or questions 10/04/2023 Perlita Van RN 10/04/2023 Short interval between pregn ancies affecting , [...] anxiety, depression, and bipolar II disorder. Diagnosed [id number] Not on any meds as of 07/07/2023 [...] 03/21/2023 Overview: Patient's sister w/ dwarfism. Declined [facility] genetics referral at this time. Obesity in [...] due date letter for pt to attend [facility] 10/13/2020 Anamaria Bernabe RN 10/13/2020 2nd trimester [...] money to get more. Never true 03/21/2023 Oxford Depression Scale Answer Date Recorded [place] Depression Scale Total 0 01/16/2024 The thought [...] Size >dates, growth u/s scheduled. GBS today. Bank Vault Attendant Documentation Provider requested nuclear officer. Name of nuclear officer: KAYLENE Farley documented in this encounter Nursing Notes * Nichole Rosario LPN - 01/25/2024 3:01 PM EDT Chief Complaint Patient presents with [facility] Return 36w2d Pt is with no concerns. GBS today. Nichole Rosario LPN documented in this encounter Plan of Treatment Upcoming Encounters Date Type Department Care Team (Late st Contact Info) Description 02/02/2024 2:45 PM EDT Imaging Radiology [address] [place] [address] Pending Results Name Type Priority Associated Diagnoses Date /Time GROUP B STREP CULTURE/PCR Lab Routine Encounter for supervision of other normal in third trimester 01/25/2024 3:26 PM EDT Scheduled Orders Name Type Priority Associated Diagnoses Orde r Schedule GROUP B STREP CULTURE/PCR Lab Routine Encounter for supervision of other normal in third trimester Expected: 01/25/2024, Expires: 01/24/2025 US PREG FOLLOW-UP EACH FETUS Medical Imaging Routine Uterine size date discrepancy Expected: 01/25/2024 (Approximate), Expires: 02/24/2025 Health Maintenance Due Date Last Done Comments Pneumococcal Vaccine: Pediat rics (0 to 5 Years) and At-Risk Patients (6 to 64 Years) (1 of 2 - PCV) 2006 COVID-19 Vaccine (2022-2 4 season) 2023 Influenza Vaccine (FLU shot) [...] complication documented in this encounter Care Teams Payroll Services Analyst Relationship Specialty Start Date End Date Hank Spivey MD [address] [place] [address] PCP - General Internal Medicine 05/12/23 documented as of this encounter
--- OUTSIDE RECORDS SUMMARY | 2024-02-20 07:43 | External Medical Summary ---
Author Name Unknown Address Unknown Organization [id number]:[facility] - [address] [place] [address] Laboratory Report Ordering Provider Test Date Status TAINA SAUNDERS 01/16/2024 13:46:07 Final Observation Date Value Abnormality Reference (Units ) Status Vitamin B12 01/16/2024 13:46:07 196 Below low normal 2 32-1245 (pg/mL) Final Performing Location [facility] - [address] [place] [address]
--- OUTSIDE RECORDS SUMMARY | 2024-02-20 07:43 | External Medical Summary | Summary of Care ---
Author Name Unknown Organization [facility] Address [address] [facility] [place] [address] Phone [phone] Care Team Providers Care Staff Trainer Name Role Phone Hank Spivey MD Primary Care Provider [phone] Encounter Details Date Type Department Care Team (Late st Contact Info) Description 12/30/2023 Orders Only PATIENT PORTAL DO NOT DELETE THIS DEPT USED BY [place] [address] Allergies Active Allergy Reactions Criticality Noted Date Comments Food (See Comments) 01/09/2019 Unknown trigger to acute allergic reaction with chest tightness, lip and tongue swelling. documented as of this encounter (statuses as of 12/30/2023) Medications Medication Sig Dispensed Refills Start Date End Date Status Albuterol Sulfate HFA 108 (90 Base) MCG/ACT Inhalation Aerosol Solution Inhale 2 Puffs by mouth every 4 hours as needed for Wheezing. 18 g 5 08/20/2021 Active [facility] Gummy 0.18-25 MG Oral Tablet Chewable daily 0 06/10/2022 Active Ondansetron 8 MG Oral Tablet Disintegrating (Zofran)Indications:Na usea and vomiting during Place 1 Tablet on tongue every 8 hours as needed for Nausea. dissolve on tongue. 60 Tablet 3 11/02/2023 Active documented as of this encounter (statuses as of 12/30/2023) Active Problems Problem Noted Date Diagnosed Date [...] risk for false positive result. Could consider [facility] for ONTD screening. Health counseling 08/04/2023 Overview: [...] anxiety, depression, and bipolar II disorder. Diagnosed [id number] Not on any meds as of 07/07/2023 [...] 08/20/2020 Overview: Taking buspar and lamicatal at NO, following with psychologist Estimated Date of Delivery Comme nts Yes 02/20/2024 Based on Ultraso und documented as of this encounter (statuses as of 12/30/2023) Resolved Problems Problem Noted Date Diagnosed Date [...] 03/21/2023 Overview: Patient's sister w/ dwarfism. Declined [facility] genetics referral at this time. Obesity [...] due date letter for pt to attend [facility] 10/13/2020 Anamaria Bernabe RN 10/13/2020 2nd [...] any current needs or questions 02/12/2021 Perlita Van RN 02/12/2021 Adjustment disorder with depressed mood [...] as of this encounter (statuses as of 12/30/2023) Immunizations Name Administration Dates Next Due DTaP [...] money to get more. Never true 03/21/2023 [place] Depression Scale Answer Date Recorded [place] Depression Scale Total 0 07/07/2023 The thought of harming myself has occurred to me . Never 07/07/2023 Estimated Date of Delivery Comme nts Yes 02/20/2024 Based on Ultraso und Sex and Gender Information Value Date Recorded Sex Assigned at Female 06/10/2022 1:52 PM EDT Gender Identity Female 06/10/2022 1:52 PM EDT Sexual Orientation Straight 06/10/2022 1: 52 PM EDT Job Start Date Occupation Industry Not on file Not on file Not on file documented as of this encounter Plan of Treatment Upcoming Encounters Date Type Department Care Team (Late st Contact Info) Description 01/16/2024 1:15 PM EDT Office Visit Gynecology/Obstetrics Madalyn Ortiz [address] [facility] [place] [address] Brenda Pyle, DAQUAN [address] [facility] [address] Nurse Angel [facility] Return [facility] [address] [facility] [place] [address] Health Maintenance Due Date Last Done Comments [...] Not on filedocumented as of this encounter Care Teams Staff Trainer Relationship Specialty Start Date End Date Hank Spivey MD [address] [place] [facility] [place] [address] PCP - General Internal Medicine 05/12/23 documented as of this encounter
--- OUTSIDE RECORDS SUMMARY | 2024-02-20 07:43 | External Medical Summary ---
Author Name Unknown Address Unknown Organization K01[facility] [place] [address] [place] [address] Laboratory Report Ordering Provider Test Date Status TAINA SAUNDERS 01/16/2024 13:46:07 Final Observation Date Value Abnormality Reference (Units ) Status Iron 01/16/2024 13:46:07 53 33-151 (ug/dL) Final Iron-binding capacity 01/16/2024 13:46:07 527 Above high normal 250-425 (ug/dL) Final Transferrin Sat % 01/16/2024 13:46:07 10 Below low normal 15-55 (%) Final Performing Location [facility] [place] [address] [place] [address]
--- OUTSIDE RECORDS SUMMARY | 2024-02-20 07:43 | External Medical Summary | Summary of Care ---
Author Name Unknown Organization [facility] Address [address] [place] [address] Phone [phone] Care Team Providers Care Box Packer Name Role Phone Hank Spivey MD Primary Care Provider [phone] Reason for Visit * Reason Comments Outpatient Testing Encounter Details Date Type Department Care Team (Late st Contact Info) Description 01/16/2024 1:50 PM EDT Laboratory Laboratory, [facility] [address] [place] [address] [facility] [address] [place] [address] Antepartum anemia complicating Allergies Active Allergy Reactions Criticality Noted Date Comments Food (See Comments) 01/09/2019 Unknown trigger to acute allergic reaction with chest tightness, lip and tongue swelling. documented as of this encounter (statuses as of 01/16/2024) Medications Medication Sig Dispensed Refills Start Date End Date Status Albuterol Sulfate HFA 108 (90 Base) MCG/ACT Inhalation Aerosol Solution Inhale 2 Puffs by mouth every 4 hours as needed for Wheezing. 18 g 5 08/20/2021 Active [facility] Gummy 0.18-25 MG Oral Tablet Chewable daily 0 06/10/2022 Active Iron 325 (65 Fe) MG Oral Tablet Take by mouth. 0 Active documented as of this encounter (statuses as of 01/16/2024) Active Problems Problem Noted Date Diagnosed Date Antepartum anemia complicating 024 Overview: Eun Greene at 28 wks, recheck labs 32 wks [...] anxiety, depression, and bipolar II disorder. Diagnosed [id number] Not on any meds as of 07/07/2023 [...] II disorder 08/20/2020 Overview: Taking buspar and halimatal at [facility], following with psychologist Estimated Date of Delivery Comme nts Yes 02/20/2024 Based on Ultraso und documented as of this encounter (statuses as of 01/16/2024) Resolved Problems Problem Noted Date Diagnosed Date [...] 03/21/2023 Overview: Patient's sister w/ dwarfism. Declined [facility] genetics referral at this time. Obesity [...] due date letter for pt to attend [place] 10/13/2020 Anamaria Bernabe RN 10/13/2020 2nd trimester [...] as of this encounter (statuses as of 01/16/2024) Immunizations Name Administration Dates Next Due DTaP [...] money to get more. Never true 03/21/2023 [place] Depression Scale Answer Date Recorded [place] Depression Scale Total 0 01/16/2024 The thought [...] Description 01/25/2024 3:00 PM EDT Office Visit Gynecology/Obstetrics Madalyn Ortiz [address] [place] [address] Sydnie Davis CRNP [address] [place] [address] Nurse Angel [facility] Return Jayla [address] [place] [address] Pending Results Name Type Priority Associated Diagnoses Date /Time CBC WITH WBC DIFFERENTIAL AND ANEMIA REFLEX WORKUP Lab Routine Antepartum anemia complicating 01/16/2024 1:46 PM EDT ANEMIA CBC Lab Routine Antepartum anemia complicating 01/16/2024 1:46 PM EDT DIFFERENTIAL, AUTOMATED Lab Routine Antepartum anemia complicating 01/16/2024 1:46 PM EDT ANEMIA REFLEX CHEMISTRY HOLD Lab Routine Antepartum anemia complicating 01/16/2024 1:46 PM EDT Health Maintenance Due Date Last Done Comments [...] as of this encounter Visit Diagnoses Diagnosis Antepartum anemia complicating Anemia, antepartum documented in this encounter Care Teams Box Packer Relationship Specialty Start Date End Date Hank Spivey MD [address] [place] [address] PCP - General Internal Medicine 05/12/23 documented as of this encounter
--- OUTSIDE RECORDS SUMMARY | 2024-02-20 07:43 | External Medical Summary | Summary of Care ---
Author Name Unknown Organization [facility] Address [address] [facility] [place] [address] Phone [phone] Care Team Providers Care Consumer Loan Processor Name Role Phone Hank Spivey MD Primary Care Provider [phone] Reason for Visit * Reason Comments Return Visit Encounter Details Date Type Department Care Team (Late st Contact Info) Description 12/28/2023 1:45 PM EDT Office Visit Gynecology/Obstetri maria teresa Ortiz [address] [facility] [place] [address] Sydnie Davis CRNP [address] [place] [address] Nurse Sergey Ortiz Beginnings Return Jayla [address] [facility] [address] Encounter for supervision of other normal in third trimester*; Bipolar disease during , antepartum (HCC); Obesity, Class I, BMI 30.0-34.9 (see actual BMI); Short interval between pregnancies affecting , antepartum; Antepartum anemia complicating Allergies Active Allergy Reactions Criticality Noted Date Comments Food (See Comments) 01/09/2019 Unknown trigger to acute allergic reaction with chest tightness, lip and tongue swelling. documented as of this encounter (statuses as of 12/28/2023) Medications Medication Sig Dispensed Refills Start Date [...] as of this encounter (statuses as of 12/28/2023) Active Problems Problem Noted Date Diagnosed Date [...] anxiety, depression, and bipolar II disorder. Diagnosed [id number] Not on any meds as of 07/07/2023 [...] 08/20/2020 Overview: Taking buspar and lamicatal at [facility], following with psychologist Estimated Date of Delivery Comme nts Yes 02/20/2024 Based on Ultraso und documented as of this encounter (statuses as of 12/28/2023) Resolved Problems Problem Noted Date Diagnosed Date [...] 03/21/2023 Overview: Patient's sister w/ dwarfism. Declined [facility] genetics referral at this time. Obesity [...] due date letter for pt to [facility] 10/13/2020 Anamaria Bernabe RN 10/13/2020 2nd trimester [...] as of this encounter (statuses as of 12/28/2023) Immunizations Name Administration Dates Next Due DTaP [...] money to get more. Never true 03/21/2023 [place] Depression Scale Answer Date Recorded [place] Depression Scale Total 0 07/07/2023 The thought [...] Sign Reading Time Taken Comments Blood Pressure 122/72 12/28/2023 1:53 PM EDT Pulse 130 12/28/2023 1:53 PM EDT Temperature - - Respiratory Rate - - Oxygen Saturation 98% 12/28/2023 1:53 PM EDT Inhaled Oxygen Concentration - - Weight 98.4 kg (217 lb) 12/28/2023 1:53 PM EDT Height 165.1 cm (5' 5") 12/28/2023 1:53 PM EDT Body Mass Index 36.11 12/28/2023 1:53 PM EDT documented in this encounter Progress Notes * Sydnie Davis CRNP - 12/28/2023 2:16 PM EDT 32w2d C/o shortness of breath. SpO2 98%. She is not struggling to breath, no tachypnea. Discussed SOB canbe a life threatening emergency, she does not feel it is that severe. Recommend ED for evaluation if needed. She just started taking iron last week, was not able to get covered by insurance and had a difficult time finding it in stock in stores OTC. What she found was a gummy iron supplement, which is not ferrous sulfate. Unsure of dose of medication she has for anemia in . We reviewed iron options, and found which aisle it is in at her local [facility]. Will need CBC at next visit. No other concerns. Baby is active. Denies contractions, bleeding, LOF. Briefly discussed control, undecided at this time. KAYLENE Zepeda * Renetta Mitchell LPN - 12/28/2023 1:51 PM EDT 32w2d Taking iron gummy 9mg taking 2 gummies daily Having SOB most days documented in this encounter Nursing Notes * Tameka Goyal RN - 12/28/2023 2:16 PM EDT Patient seen by [facility] Marketing Planner. Patient denies any questions or concerns. Tameka J Corl, RN documented in this encounter Plan of Treatment Upcoming Encounters Date Type Department Care Team (Late st Contact Info) Description 01/16/2024 1:15 PM EDT Office Visit Gynecology/Obstetrics Madalyn Ortiz [address] [place] [address] Brenda Pyle CNM [address] [place] [address] Nurse Angel Healthy [facility] [place] [address] Scheduled Orders Name Type Priority Associated Diagnoses Orde r Schedule CBC WITH WBC DIFFERENTIAL AND ANEMIA REFLEX WORKUP Lab Routine Antepartum anemia complicating Expected: 12/28/2023, Expires: 12/27/2024 Health Maintenance Due Date Last Done Comments [...] Short interval between pregnancies affecting , antepartum Antepartum anemia complicating Anemia, antepartum documented in this encounter Care Teams Consumer Loan Processor Relationship Specialty Start Date End Date Hank Spivey MD [address] [place] [address] PCP - General Internal Medicine 05/12/23 documented as of this encounter
--- OUTSIDE RECORDS SUMMARY | 2024-02-20 07:43 | External Medical Summary | Summary of Care ---
Author Name Unknown Organization [facility] Address [address] [facility] [place] [address] Phone [phone] Care Team Providers Care Crime Scene Evidence Technician Name Role Phone Hank Spivey MD Primary Care Provider [phone] Reason for Visit * Reason Comments Return Visit Encounter Details Date Type Department Care Team (Late st Contact Info) Description 12/28/2023 1:45 PM EDT Office Visit Gynecology/Obstetri maria teresa Ortiz [address] [facility] [place] [address] Sydnie Davis CRNP [address] [place] [address] Nurse Sergey Ortiz Beginnings Return Jayla [address] [place] [address] Encounter for supervision of other normal in [...] anxiety, depression, and bipolar II disorder. Diagnosed [id number] Not on any meds as of 07/07/2023 [...] 08/20/2020 Overview: Taking buspar and lamicatal at [facility], following with psychologist Estimated Date of [...] 03/21/2023 Overview: Patient's sister w/ dwarfism. Declined [facility] genetics referral at this time. Obesity [...] money to get more. Never true 03/21/2023 [place] Depression Scale Answer Date Recorded [place] Depression Scale Total 0 07/07/2023 The thought [...] [facility] Will need CBC at next visit. No [...] 12/28/2023 2:16 PM EDT Patient seen by [facility] Pastoral Assistant. Patient denies any questions or concerns. Tameka Goyal RN documented in this encounter Plan of Treatment Upcoming Encounters Date Type Department Care Team (Late st Contact Info) Description 01/16/2024 1:15 PM EDT Office Visit Gynecology/Obstetrics Madalyn Ortiz [address] [place] [address] Brenda Pyle CNM [address] [place] [address] [place] [address] Nurse Angel Healthy Beginnings Return Jayla [address] [place] [address] Scheduled Orders Name Type Priority Associated Diagnoses [...] antepartum documented in this encounter Care Teams Crime Scene Evidence Technician Relationship Specialty Start Date End Date Hank Spivey MD [address] [place] [address] PCP - General Internal Medicine 05/12/23 documented as of this encounter
--- OUTSIDE RECORDS SUMMARY | 2024-02-20 07:43 | External Medical Summary ---
Author Name Unknown Address Unknown Organization [id number]:[facility] [place] [address] [place] [address] Laboratory Report Ordering Provider Test Date Status KARL DIANE 12/12/2023 11:55:20 Final Observation Date Value Abnormality Reference (Units ) Status Premature Rupture Membrane risk 12/12/2023 11:55:20 Negative Negative Final [facility] Location [facility] [address] [place] [address]
--- OUTSIDE RECORDS SUMMARY | 2024-02-20 07:43 | External Medical Summary | Summary of Care ---
Author Name Unknown Organization [facility] Address [address] [place] [address] Phone [phone] Care Team Providers Care Crm Campaign Manager Name Role Phone Hank Spivey MD Primary Care Provider [phone] Reason for Visit * Reason Comments Return Visit Encounter Details Date Type Department Care Team (Late st Contact Info) Description 01/16/2024 1:15 PM EDT Office Visit Gynecology/Obstetri cs Jeffreymolly Ortiz [address] [facility] [place] [address] Brenda Pyle CNM [address] [place] [address] Nurse Angel [facility] Beginnings Return Jayla [address] [place] [address] Bipolar disease during , antepartum (HCC)*; Obesity, Class I, BMI 30.0-34.9 (see actual BMI); Short interval between pregnancies affecting , antepartum; Antepartum anemia complicating ; Need for prophylactic vaccination with combined plgrgouldg-hueabri-tw rtussis (DTP) vaccine; Encounter for supervision of normal first in third trimester Allergies Active Allergy Reactions Criticality Noted Date [...] Oral Tablet Take by mouth. 0 Active Ondansetron 8 MG Oral Tablet Disintegrating (Zofran)Indications: Nausea and vomiting during Place 1 Tablet on tongue every 8 hours as needed for Nausea. dissolve on tongue. 60 Tablet 3 11/02/2023 4 Discontinue d(Medicatio n List Clean Up) documented as of this encounter (statuses as [...] anxiety, depression, and bipolar II disorder. Diagnosed [id number] Not on any meds as of 07/07/2023 [...] 03/21/2023 Overview: Patient's sister w/ dwarfism. Declined [facility] genetics referral at this time. Obesity [...] due date letter for pt to attend [facility] 10/13/2020 Anamaria Bernabe RN 10/13/2020 2nd trimester [...] money to get more. Never true 03/21/2023 [place] Depression Scale Answer Date Recorded [place] Depression Scale Total 0 01/16/2024 The thought [...] Sign Reading Time Taken Comments Blood Pressure 118/72 01/16/2024 1:26 PM EDT Pulse - - Temperature - - Respiratory Rate - - Oxygen Saturation - - Inhaled Oxygen Concentration - - Weight 100.2 kg (221 lb) 01/16/2024 1:26 PM EDT Height - - Body Mass Index 36.78 12/28/2023 1:53 PM EDT documented in this encounter Progress Notes * Carol Coles LPN - 01/16/2024 1:25 PM EDT 35w0d Denies vaginal bleeding/rom + movement Repeating CBC today No new concerns * Brenda Pyle CNM - 01/16/2024 1:15 PM EDT Sheila Saavedra is a 23 year old female here for her routine OB appointment at 35w0d Her Estimated Date of Delivery: 02/20/24 REVIEW OF SYSTEMS: She affirms movement. Denies vaginal bleeding, LOF, contractions, N/V, headaches PHYSICAL EXAM: Filed Vitals: 01/16/24 1326 BP: 118/72 Weight: 100.2 kg (221 lb) +FHT 150s Fundal height 35 ASSESSMENT/PLAN: 1. Bipolar disease during , antepartum (HCC) 2. Obesity, Class I, BMI 30.0-34.9 (see actual BMI) 3. Short interval between pregnancies affecting , antepartum 4. Antepartum anemia complicating -cbc today 5. Need for prophylactic vaccination with combined kwqtoxhysl-sncczvm-sghgeayie (DTP) vaccine Pt left without getting 6. Encounter for supervision of normal first in third trimester - discussed GBS and to expect swab to be complete at next visit - labor precautions and kick counts reviewed - RTO in 2 weeks Brenda Pyle CNM documented in this encounter Plan of Treatment Upcoming Encounters Date Type Department Care Team (Late st Contact Info) Description 01/25/2024 3:00 PM EDT Office Visit Gynecology/Obstetrics Madalyn Ortiz [address] [place] [address] Sydnie Davis CRNP [address] [place] [address] Nurse Angel Healthy Beginnings Return Jayla [address] [place] [address] Health Maintenance Due Date Last Done Comments Pneumococcal Vaccine: Pediat rics (0 to 5 Years) and At-Risk Patients (6 to 64 Years) (1 of 2 - PCV) 2006 COVID-19 Vaccine (1 - 2022-2 4 season) 2023 Influenza Vaccine [...] as of this encounter Visit Diagnoses Diagnosis Bipolar disease during , antepartum (HCC)- Primary Obesity, Class I, BMI 30.0-34.9 (see actual BMI) Obesity, unspecified Short interval between pregnancies affecting , antepartum Antepartum anemia complicating Anemia, antepartum Need for prophylactic vaccination with combined ppbasbilyh-ktaynlq-dfznudluf (DTP) vaccine Encounter for supervision of normal first in third trimester Supervision of normal first documented in this encounter Care Teams Crm Campaign Manager Relationship Specialty Start Date End Date Hank Spivey MD [address] [place] [address] PCP - General Internal Medicine 05/12/23 documented as of this encounter
--- OUTSIDE RECORDS SUMMARY | 2024-02-20 07:43 | External Medical Summary ---
Author Name Unknown Address Unknown Organization [id number]:[facility] [address] [place] [address] Laboratory Report Ordering Provider Test Date Status JERRY SAUNDERSSHAVON 01/16/2024 13:46:07 Final Observation Date Value Abnormality Reference (Units ) Status WBC, Total 01/16/2024 13:46:07 9.53 4.00-10.8 0 (K/uL) Final RBC 01/16/2024 13:46:07 4.07 3.85-5.15 (M/uL) Final Hemoglobin 01/16/2024 13:46:07 11.9 Below low normal 12 .0-15.3 (g/dL) Final Anemia reflex testing trigge rs on a HGB < 12.0 for Females and HGB < 13.0 for Males in accordance with the WHO Anemia Guidelines
Anemia reflex testing triggers on a HGB < 12.0 for Females and HGB < 13.0 for Males in accordance with the WHO Anemia Guidelines HCT 01/16/2024 13:46:07 36.8 36.0-45.2 (%) Final MCV 01/16/2024 13:46:07 90.4 81.5-97.5 (fL) Final MCH 01/16/2024 13:46:07 29.2 27.0-34.0 (pg) Final MCHC 01/16/2024 13:46:07 32.3 32.0-36.0 (g/dL) Final RDW 01/16/2024 13:46:07 15.4 11.5-15.5 (%) Final Platelets 01/16/2024 13:46:07 171 140-400 (K /uL) Final MPV 01/16/2024 13:46:07 11.3 6.6-11.1 ( fL) Final Nucleated erythrocytes/100 leukocytes [Ratio] in Blood by Automated count 01/16/2024 13:46:07 0 <=0 (/100 WBCs) [facility] Performing Location LABORATORY [facility] - [address] [facility] [address]
--- OUTSIDE RECORDS SUMMARY | 2024-02-20 07:43 | External Medical Summary ---
Author Name Unknown Address Unknown Organization [id number]:[facility] - [address] [place] [address] Laboratory Report Ordering Provider Test Date Status CHIP,TAINA 01/16/2024 13:46:07 Final Observation Date Value Abnormality Reference (Units ) Status SYNC LEUKOCYTES IN BLOOD BY AUTOMATED COUNT 01/16/2024 13:46:07 9.53 4.00-10.80 (K/uL) Final Segs 01/16/2024 13:46:07 72.6 40.0-75.0 (%) Final Lymphs % 01/16/2024 13:46:07 17.2 Below low normal 18.0-42.0 (%) Final Monos 01/16/2024 13:46:07 7.5 1.0-11.0 (%) Final Eosinophils 01/16/2024 13:46:07 0.9 0.0-6.0 (%) Final Basos 01/16/2024 13:46:07 0.3 0.0-2.0 (%) Final Immature Granulocyte, Percent 01/16/2024 13:46:07 1.5 0.0-2.0 (%) Final Absolute Segs 01/16/2024 13:46:07 6.92 1.80-7.70 (K/uL) Final Lymphs, absolute 01/16/2024 13:46:07 1.64 1.00-4.80 (K/ul) Final Monos, Abs 01/16/2024 13:46:07 0.71 0.00-1.10 (K/uL) Final Eos, Abs 01/16/2024 13:46:07 0.09 0.00-0.70 (K/uL) Final Basos, Abs 01/16/2024 13:46:07 0.03 0.00-0.20 (K/uL) Final Immature Granulocytes, Number 01/16/2024 13:46:07 0.14 0.00-0.20 (K/uL) Final Performing Location [facility] - [address] [facility] [address]
--- OUTSIDE RECORDS SUMMARY | 2024-02-20 07:43 | External Medical Summary ---
Author Name Unknown Address Unknown Organization K01:[facility] [address] [place] [address] Laboratory Report Ordering Provider Test Date Status TAINA SAUNDERS 01/16/2024 13:46:07 Final Observation Date Value Abnormality Reference (Units ) Status Ferritin 01/16/2024 13:46:07 23 13-150 (ng /mL) Final Performing Location [facility] - [address] [place] [address]
--- OUTSIDE RECORDS SUMMARY | 2024-02-20 07:43 | External Medical Summary | Summary of Care ---
Author Name Unknown Organization [facility] Address [address] [place] [address] Phone [phone] Care Team Providers Care Sport Internship Name Role Phone Hank Spivey MD Primary Care Provider [phone] Reason for Visit * Reason Onset Date Comments Referral 10/05/2023 Encounter Details Date Type Department Care Team (Late st Contact Info) Description 10/05/2023 Telephone Freight Handler Obstetrics Maternal Medicine, [place] [address] [place] [address] [place], Nurse Freight Handler [facility] [address] [place] [address] Referral Allergies Active Allergy Reactions Criticality Noted Date Comments Food (See Comments) 01/09/2019 Unknown trigger to acute allergic reaction with chest tightness, lip and tongue swelling. documented as of this encounter (statuses as of 01/04/2024) Medications Medication Sig Dispensed Refills Start Date End Date Status Albuterol Sulfate HFA 108 (90 Base) MCG/ACT Inhalation Aerosol Solution Inhale 2 Puffs by mouth every 4 hours as needed for Wheezing. 18 g 5 08/20/2021 Active [facility] Gummy 0.18-25 MG Oral Tablet Chewable daily 0 06/10/2022 Active documented as of this encounter (statuses as of 01/04/2024) Active Problems Problem Noted Date Diagnosed Date [...] anxiety, depression, and bipolar II disorder. Diagnosed [id number] Not on any meds as of 07/07/2023 [...] as of this encounter (statuses as of 01/04/2024) Resolved Problems Problem Noted Date Diagnosed Date [...] 03/21/2023 Overview: Patient's sister w/ dwarfism. Declined [facility] genetics referral at this time. Obesity [...] due date letter for pt to attend [facility] 10/13/2020 Anamaria Bernabe RN 10/13/2020 2nd [...] as of this encounter (statuses as of 01/04/2024) Immunizations Name Administration Dates Next Due DTaP [...] money to get more. Never true 03/21/2023 [place] Depression Scale Answer Date Recorded [place] Depression Scale Total 0 07/07/2023 The thought [...] on file documented as of this encounter Miscellaneous Notes * Telephone Encounter - Ariadna Warren OSA - 10/05/2023 9:50 AM EST Spoke with Sheila. Appointment scheduled. Patient aware of date, time and location of Maternal Medicine appointment. * Telephone Encounter - Perlita Sauceda CCMA - 10/05/2023 8:06 AM EST Estimated Date of Delivery: 02/20/24 Please schedule for LONG SCAN, in time frame of within 2-3 weeks at location [facility] with the indication of Echogenic intracardiac focus . Referring Provider: Brigida Ballesteros MD documented in this encounter Plan of Treatment Upcoming Encounters Date Type Department Care Team (Late st Contact Info) Description 01/16/2024 1:15 PM EDT Office Visit Gynecology/Obstetrics Madalyn Ortiz [address] [place] [address] Brenda Pyle CNM [address] [place] [address] [place] [address] Nurse Angel Healthy Beginnings Return Jayla [address] [place] [address] Health Maintenance Due Date Last Done Comments [...] Completed 11/29/2014, 08/06/2014, 05/28/2014 MENINGOCOCCAL (MENACTRA/MENVEO) Completed , 05/03/2012 documented as of this encounter Medical Devices Not on filedocumented as of this encounter Care Teams Sport Internship Relationship Specialty Start Date End Date Hank Spivey MD [address] [place] [address] PCP - General Internal Medicine 05/12/23 documented as of this encounter
--- OUTSIDE RECORDS SUMMARY | 2024-02-20 07:43 | External Medical Summary ---
Author Name Unknown Address Unknown Organization K01:[facility] - [address] [place] [address] Laboratory Report Ordering Provider Test Date Status TAINA SAUNDERS 01/16/2024 13:46:07 Final Observation Date Value Abnormality Reference (Units ) Status TSH 01/16/2024 13:46:07 1.93 0.27-4.20 (uIU/mL) Final Performing Location [facility] - [address] [place] [address]
--- OUTSIDE RECORDS SUMMARY | 2024-02-20 07:43 | External Medical Summary | Summary of Care ---
Author Name Unknown Organization [facility] Address [address] [facility] [place] [address] Phone [phone] Care Team Providers Care Faculty Neuropsychologist Name Role Phone Hank Spivey MD Primary Care Provider [phone] Reason for Visit * Reason Comments Return Visit Encounter Details Date Type Department Care Team (Late st Contact Info) Description 12/12/2023 11:30 AM EDT Office Visit Gynecology/Obstetri maria teresa Ortiz [address] [place] [address] Tiff Simmons PA-C [address] [place] [address] Nurse Angel [facility] Return Jayla [address] [employer] [place] [address] Encounter for supervision of other normal in [...] as of this encounter (statuses as of 12/12/2023) Medications Medication Sig Dispensed Refills Start Date [...] on tongue. 60 Tablet 3 11/02/2023 Active Iron-Vitamin C 65-125 MG Oral Tablet (Vitron C)Indications:Antepa rtum anemia complicating Take 1 Tablet by mouth in the morning and 1 Tablet before bedtime. 60 Tablet 3 11/30/2023 4 Discontinued documented as of this encounter (statuses as of 12/12/2023) Active Problems Problem Noted Date Diagnosed Date [...] having any current needs or questions 08/04/2023 Tameak Goyal RN 08/04/2023 Problem Action Taken Date [...] anxiety, depression, and bipolar II disorder. Diagnosed [id number] Not on any meds as of 07/07/2023 [...] as of this encounter (statuses as of 12/12/2023) Resolved Problems Problem Noted Date Diagnosed Date Resolved Date GBS (group B Streptococcus c zoran), +RV culture, currently 01/07/2023 03/21/2023 Health counseling [...] 03/21/2023 Overview: Patient's sister w/ dwarfism. Declined [facility] genetics referral at this time. Obesity [...] as of this encounter (statuses as of 12/12/2023) Immunizations Name Administration Dates Next Due DTaP [...] money to get more. Never true 03/21/2023 [place] Depression Scale Answer Date Recorded [place] Depression Scale Total 0 07/07/2023 The thought [...] Sign Reading Time Taken Comments Blood Pressure 120/68 12/12/2023 11:41 AM EDT Pulse - - Temperature - - Respiratory Rate - - Oxygen Saturation - - Inhaled Oxygen Concentration - - Weight 98 kg (216 lb) 12/12/2023 11:41 AM EDT Height 165.1 cm (5' 5") 12/12/2023 11:41 AM EDT Body Mass Index 35.94 12/12/2023 11:41 AM EDT documented in this encounter Progress Notes * Tiff Simmons PA-C - 12/12/2023 11:47 AM EDT 30w0d C/o leaking of vaginal fluid upon arrival today. Patient reports started at 1 AM yesterday. She thought maybe she was peeing herself. Not continuous leaking feeling, not sure how much fluid as she has been wearing menstrual underwear. Underwear just continuously wet. No recent intercourse. Denies large gush of fluid, odor, vaginal irritation or itching. Denies VB. Baby is active. Denies contractions. Pelvic exam: External genitalia and vagina anatomy within normal limits, No significant vulvar lesions, Cervix normal in appearance without lesions, cervix visually closed, white discharge into posterior cul-de-sac ? physiologic, no blood in vaginal vault. No lof with valsalva. Nitrazine negative. ROM + collected. A/P: ROM plus returned: negative. Patient informed of results. Advised to put pad on and if continuouslyleaking into pad and/or saturating pad that she needs to call right away. Pt agreeable to this plan. Labor precautions reviewed. Has not started PO iron as not covered by insurance. Given information to pick pulling machine operator Iron OTC and start BID. Pt agreeable. RTC in 2 weeks Tiff Simmons PA-C * Renetta Mitchell LPN - 12/12/2023 11:42 AM EDT 30w0d Noticed underwear wet in the back since yesterday morning documented in this encounter Plan of Treatment Upcoming Encounters Date Type Department Care Team (Late st Contact Info) Description 12/28/2023 1:45 PM EDT Office Visit Gynecology/Obstetrics Madalyn Ortiz [address] [place] [address] Sydnie Davis CRNP [address] [place] [address] Ortiz, Nurse [facility] Return Jayla [address] [place] [address] Health Maintenance Due Date Last Done Comments [...] Not on filedocumented as of this encounter Procedures Procedure Name Priority Date/Time Associated Diagnosis Comments RUPTURE OF MEMBRANE STAT 12/12/2023 11:55 AM EDT Obesity, Class I, BMI 30.0-34.9 (see actual BMI) documented in this encounter Results * RUPTURE OF MEMBRANE (12/12/2023 11:55 AM EDT) Rupture of Membrane Negative Negative 12/12/2023 12:24 PM EDT LAB[facility]ATORY [facility]-10 Swab Specimen from wound / Unknown 12/12/2023 11:55 AM EDT 12/12/2023 11:55 AM EDT Tiff Simmons PA-C LAB FLUID AND STOOL ORDERABLES [facility] 57-10 [address] [facility] [place] [address] documented in this encounter Visit Diagnoses Diagnosis Encounter for supervision of other normal in third trimester- Primary Bipolar disease during , antepartum (HCC) Obesity, Class I, BMI 30.0-34.9 (see actual BMI) Obesity, unspecified Short interval between pregnancies affecting , antepartum cardiac echogenic focus, antepartum, single or unspecified fetus Antepartum anemia complicating Anemia, antepartum documented in this encounter Care Teams Faculty Neuropsychologist Relationship Specialty Start Date End Date Hank Spivey MD [address] [facility] [place] [address] PCP - General Internal Medicine 05/12/23 documented as of this encounter
--- OUTSIDE RECORDS SUMMARY | 2024-02-20 07:43 | External Medical Summary ---
Author Name Unknown Address Unknown Organization [id number]:[facility] - [address] [place] [address] Laboratory Report Ordering Provider Test Date Status TAINA SAUNDERS 01/16/2024 13:46:07 Final Observation Date Value Abnormality Reference (Units ) Status Folic Acid 01/16/2024 13:46:07 19.7 >4.5 (ng/ mL) Final Performing Location [facility] - [address] [place] [address]
--- OUTSIDE RECORDS SUMMARY | 2024-02-20 07:44 | External Medical Summary ---
Author Name Unknown Address Unknown Organization [id number]:LABORATORY [facility] - [address] [place] [facility] [place] [address] Laboratory Report Ordering Provider Test Date Status JCBACKER 11/30/2023 07:25:51 Final Observation Date Value Abnormality Reference (Units ) Status SYNC LEUKOCYTES IN BLOOD BY AUTOMATED COUNT 11/30/2023 07:25:51 9.51 4.00-10.80 (K/uL) Final Segs 11/30/2023 07:25:51 63.1 40.0-75.0 (%) Final Lymphs % 11/30/2023 07:25:51 25.7 18.0-42.0 (%) Final Monos 11/30/2023 07:25:51 8.3 1.0-11.0 (%) Final Eosinophils 11/30/2023 07:25:51 1.5 0.0-6.0 (%) Final Basos 11/30/2023 07:25:51 0.7 0.0-2.0 (%) Final Immature Granulocyte, Percent 11/30/2023 07:25:51 0.7 0.0-2.0 (%) Final Absolute Segs 11/30/2023 07:25:51 6.00 1.80-7.70 (K/uL) Final Lymphs, absolute 11/30/2023 07:25:51 2.44 1.00-4.80 (K/ul) Final Monos, Abs 11/30/2023 07:25:51 0.79 0.00-1.10 (K/uL) Final Eos, Abs 11/30/2023 07:25:51 0.14 0.00-0.70 (K/uL) Final Basos, Abs 11/30/2023 07:25:51 0.07 0.00-0.20 (K/uL) Final Immature Granulocytes, Number 11/30/2023 07:25:51 0.07 0.00-0.20 (K/uL) Final Performing Location LABORATORY [facility] - [address] [facility] [address]
--- OUTSIDE RECORDS SUMMARY | 2024-02-20 07:44 | External Medical Summary | Summary of Care ---
Author Name Unknown Organization [facility] Address [address] [place] [address] Phone [phone] Care Team Providers Care Drivability Technician Name Role Phone Hank Spivey MD Primary Care Provider [phone] Reason for Referral * Evaluate & Treat - Unlimited Visits (Within 10 days (routine)) - Authorized Specialty Diagnoses / Procedures Referred By Danielle mills Referred To Contact Obstetrics/Gynecology / Maternal Medicine Diagnoses Echogenic intracardiac focus of fetus on ultrasound Brigida Whalen MD [address] [place] [id number] Referral ID Status Reason Start Date Expiration Date Visits Requested Visits Authorized [id number] Authorized Specialty Services Required 10/04/2023 999 999 Question Answer Referral Priority Within 10 days (routine) Has the patient had a viability scan? Yes Date performed 07/04/2023 Location performed Radiology Reason for referral Other Please provide additional details Echogenic intracardiac focus Where should this appointment be scheduled? [facility] Comments /Para: LMP: Patient's last menstrual period was 04/05/2023. Patient is . MELISSA: 02/20/2024, by Ultrasound Pre-Gravid BMI: 34.11 Reason for Visit * Reason Onset Date Comments Test Results 10/04/2023 Unexpected or In determinate Result Encounter Details Date Type Department Care Team (Late st Contact Info) Description 10/04/2023 Telephone Gynecology/Obstetrics Madalyn Ortiz [address] [place] [address] Tiff Simmons PA-C [address] [place] [address] Test Results (Unexpected or Indeterminate ... Allergies Active Allergy Reactions Criticality Noted Date Comments Food (See Comments) 01/09/2019 Unknown trigger to acute allergic reaction with chest tightness, lip and tongue swelling. documented as of this encounter (statuses as of 10/15/2023) Medications Medication Sig Dispensed Refills Start Date [...] Nausea. dissolve on tongue. 60 Tablet 3 07/07/2023 Active Additional Information Patient not taking.Reported on 09/14/2023 Urea 40 % External Cream Apply to affected areas on chest at night 30 g 0 08/09/2023 Active Cephalexin 500 MG Oral Capsule (Keflex) Take 1 Capsule by mouth in the morning and 1 Capsule before bedtime. 20 Capsule 0 09/12/2023 Active documented as of this encounter (statuses as of 10/15/2023) Active Problems Problem Noted Date Diagnosed Date cardiac echogenic focus, antepartum 2023 Last Assessment & Plan: At your request, [...] anxiety, depression, and bipolar II disorder. Diagnosed [id number] Not on any meds as of 07/07/2023 [...] 08/20/2020 Overview: Taking buspar and l[facility]atal at [facility], following with psychologist Estimated Date of Delivery Comme nts Yes 02/20/2024 Based on Ultraso und documented as of this encounter (statuses as of 10/15/2023) Resolved Problems Problem Noted Date Diagnosed Date [...] 03/21/2023 Overview: Patient's sister w/ dwarfism. Declined [facility] genetics referral at this time. [...] due date letter for pt to attend [facility] 10/13/2020 Anamaria Bernabe RN 10/13/2020 [...] as of this encounter (statuses as of 10/15/2023) Immunizations Name Administration Dates Next Due DTaP [...] money to get more. Never true 03/21/2023 [place] Depression Scale Answer Date Recorded [place] Depression Scale Total 0 07/07/2023 The thought [...] as of this encounter Miscellaneous Notes * Addendum Note - Brigida Whalen MD - 10/15/2023 5:37 PM ESTAddended by: BRIGIDA WHALEN on: 10/15/2023 05:37 PM Modules accepted: Orders * Telephone Encounter - Jennifer Lynne LPN - 10/04/2023 4:30 PM EST Patient notified. Agreeable to MFM consult. * Telephone Encounter - Brigida Whalen MD - 10/04/2023 4:24 PM EST MFM consult placed Quad screen ordered (if patient desires to do) * Telephone Encounter - Jennifer Lynne LPN - 10/04/2023 4:18 PM EST Will have chemical instrumentation officer provider review. * Telephone Encounter - Tomy Solis OSA - 10/04/2023 4:09 PM EST Hello- The radiologist discovered an unexpected or indeterminate finding on Sheila Morales Covalt ([id number])and asks that you review the following report. Study Type: US PREG SINGLE/1ST GEST, 14 WEEKS OR LATER 10/04/2023 IMPRESSION 1. Single live fetus 19 weeks 5 days with appropriate growth since the initial study. 2. Echogenic intracardiac focus, soft marker for aneuploidy. Anatomic survey otherwise unremarkable. 3. Variable position. Please respond to this encounter to acknowledge receipt of this message and take responsibility to ensure this report is reviewed. Thank you, JIMENA Lucia Client Service Rep [facility] [place] documented in this encounter Plan of Treatment Upcoming Encounters Date Type Department Care Team (Late st Contact Info) Description 11/02/2023 1:30 PM EST Office Visit Gynecology/Obstetrics Madalyn Ortiz [address] [place] [address] Odessa Lal CRNP [address] [place] [address] Nurse Angel [facility] Return Jayla [address] [facility] [place] [address] 11/07/2023 2:30 PM EST Telemedicine Nutrition Services, [facility] [address] [place] [address] Marina Osuna, RDN [address] [place] [address] Pending Results Name Type Priority Associated Diagnoses Date /Time [facility] US MATERNAL 1ST FETUS Medical Imaging Routine Echogenic intracardiac focus of fetus on ultrasound 10/14/2023 2:05 PM EST Scheduled Orders Name Type Priority Associated Diagnoses Orde r Schedule MFM US MATERNAL 1ST FETUS Medical Imaging Routine Echogenic intracardiac focus of fetus on ultrasound Expected: 10/04/2023, Expires: 11/02/2024 Scheduled Referrals Name Type Priority Associated Diagnoses Orde r Schedule MATERNAL MEDICINE REFERRAL OP Referral Within 10 days (routine) Echogenic intracardiac focus of fetus on ultrasound Ordered: 10/04/2023 Health Maintenance Due Date Last Done Comments COVID-19 Vaccine (#1) 04/09/2001 Pneumococcal Vaccine: Pediat rics (0 to 5 Years) and At-Risk Patients (6 to 64 Years) (1 - PCV) 2006 Depression Screening 08/20/2020 08/20/2019 Influenza Vaccine (FLU shot) (#1) 2023 05/28/2014, 08/22/2007, 10/03/2006, Additional history exists Gonorrhea [...] as of this encounter Visit Diagnoses Diagnosis Echogenic intracardiac focus of fetus on ultrasound- Primary Abnormal findings on screening documented in this encounter Care Teams Drivability Technician Relationship Specialty Start Date End Date Hank Spivey MD [address] [place] [address] PCP - General Internal Medicine 05/12/23 documented as of this encounter
--- OUTSIDE RECORDS SUMMARY | 2024-02-20 07:44 | External Medical Summary ---
Author Name Unknown Address Unknown Organization [id number]:[facility] - [address] [place] [address] Laboratory Report Ordering Provider Test Date Status JOLIE GREENE 11/30/2023 07:25:51 Final Observation Date Value Abnormality Reference (Units ) Status TSH 11/30/2023 07:25:51 3.67 0.27-4.20 (uIU/mL) Final Performing Location [facility] - [address] [place] [address]
--- OUTSIDE RECORDS SUMMARY | 2024-02-20 07:44 | External Medical Summary ---
Author Name Unknown Address Unknown Organization [id number]:[facility] - [address] [place] [address] Laboratory Report Ordering Provider Test Date Status JOLIE GREENE 11/30/2023 07:25:51 Final Observation Date Value Abnormality Reference (Units ) Status Ferritin 11/30/2023 07:25:51 8 Below low normal 13- 150 (ng/mL) Final Performing Location [facility] - [address] [place] [address]
--- OUTSIDE RECORDS SUMMARY | 2024-02-20 07:44 | External Medical Summary | Summary of Care ---
Author Name Unknown Organization [facility] Address [address] [facility] [place] [address] Phone [phone] Care Team Providers Care Ordnance Truck Installation Mechanic Name Role Phone Hank Spivey MD Primary Care Provider [phone] Reason for Visit * Reason Comments Return Visit Encounter Details Date Type Department Care Team (Late st Contact Info) Description 11/30/2023 9:30 AM EDT Office Visit Gynecology/Obstetri cs Madalyn Ortiz [address] [facility] [place] [address] Sydnie Davis CRNP [address] [place] [address] Nurse Sergey Ortiz Beginnings Return Jayla [address] [facility] [place] [address] Encounter for supervision of other normal in third trimester*; Bipolar disease during , antepartum (HCC); Obesity, Class I, BMI 30.0-34.9 (see actual BMI); Short interval between pregnancies affecting , antepartum; cardiac echogenic focus, antepartum, single or unspecified fetus Allergies Active Allergy Reactions Criticality Noted Date Comments Food (See Comments) 01/09/2019 Unknown trigger to acute allergic reaction with chest tightness, lip and tongue swelling. documented as of this encounter (statuses as of 11/30/2023) Medications Medication Sig Dispensed Refills Start Date [...] as of this encounter (statuses as of 11/30/2023) Active Problems Problem Noted Date Diagnosed Date cardiac echogenic focus, antepartum 2023 Overview: Low [...] anxiety, depression, and bipolar II disorder. Diagnosed [id number] Not on any meds as of 07/07/2023 [...] as of this encounter (statuses as of 11/30/2023) Resolved Problems Problem Noted Date Diagnosed Date [...] 03/21/2023 Overview: Patient's sister w/ dwarfism. Declined [facility] genetics referral at this time. Obesity [...] as of this encounter (statuses as of 11/30/2023) Immunizations Name Administration Dates Next Due DTaP [...] money to get more. Never true 03/21/2023 [place] Depression Scale Answer Date Recorded [place] Depression Scale Total 0 07/07/2023 The thought [...] Sign Reading Time Taken Comments Blood Pressure 110/62 11/30/2023 9:38 AM EDT Pulse - - Temperature - - Respiratory Rate - - Oxygen Saturation - - Inhaled Oxygen Concentration - - Weight 97.5 kg (215 lb) 11/30/2023 9:38 AM EDT Height 165.1 cm (5' 5") 11/30/2023 9:38 AM EDT Body Mass Index 35.78 11/30/2023 9:38 AM EDT documented in this encounter Progress Notes * Sydnie Davis CRNP - 11/30/2023 9:52 AM EDT 28w2d Completing 3hr GTT today. Had growth u/s today, 50th percentile. Baby is active. No contractions, no bleeding or LOF. Declines TDAP. KAYLENE Zepeda documented in this encounter Nursing Notes * Renetta Mitchell LPN - 11/30/2023 9:38 AM EDT 28w2d Doing glucola today Growth today 50% ANA 17.3 documented in this encounter Plan of Treatment Upcoming Encounters Date Type Department Care Team (Late st Contact Info) Description 12/12/2023 11:30 AM EDT Office Visit Gynecology/Obstetrics Madalyn Ortiz [address] [place] [address] Tiff Simmons PA-C [address] [place] [address] Nurse Angel [facility] Return Jayla [address] [place] [address] Health Maintenance Due Date Last Done Comments Pneumococcal Vaccine: Pediat rics (0 to 5 Years) and At-Risk Patients (6 to 64 Years) (1 of 2 - PCV) 2006 Depression Screening 08/20/2020 08/20/2019 COVID-19 Vaccine ( - 2022-2 4 season) 2023 Influenza Vaccine (FLU shot) (#1) 2023 05/28/2014, [...] echogenic focus, antepartum, single or unspecified fetus documented in this encounter Care Teams Ordnance Truck Installation Mechanic Relationship Specialty Start Date End Date Hank Spivey MD [address] [place] [address] PCP - General Internal Medicine 05/12/23 documented as of this encounter
--- OUTSIDE RECORDS SUMMARY | 2024-02-20 07:44 | External Medical Summary ---
Author Name Unknown Address Unknown Organization K01:LABORATORY [facility] - [address] [place] [address] Laboratory Report Ordering Provider Test Date Status MADI ESTEVEZ 11/30/2023 07:25:51 Final Observation Date Value Abnormality Reference (Units ) Status MYCODE SPECIMEN-SST 11/30/2023 07:25:51 Freezing of extracted DNA, whole blood and/or serum. Final Performing Location LABORATORY C - [address] [place] [address]
--- OUTSIDE RECORDS SUMMARY | 2024-02-20 07:44 | External Medical Summary ---
Author Name Unknown Address Unknown Organization K0G:LAB[facility]ORY [place] [facility] - [address] [place] [address] Laboratory Report Ordering Provider Test Date Status JOLIE GREENE 11/30/2023 07:25:51 Final Based on ACOG guideline, ges tational diabetes mellitus is diagnosed when any of the following is met:
Fasting is greater than or equal to 95 mg/dL
1 hour is greater than or equal to 180 mg/dL
2 hour is greater than or equal to 155 mg/dL
3 hour is greater than or equal to 140 mg/dL Observation Date Value Abnormality Reference (Units ) Status Glucose, fasting 11/30/2023 07:25:51 89 70- 94 (mg/dL) Final Performing Location LABORATORY [facility] [address] 0 - [address] [place] [address]
--- OUTSIDE RECORDS SUMMARY | 2024-02-20 07:44 | External Medical Summary ---
Author Name Unknown Address Unknown Organization [id number]:LABORATORY [facility] - [facility] [address] [place] [address] Laboratory Report Ordering Provider Test Date Status JCJOLIE 11/30/2023 07:25:51 Final Observation Date Value Abnormality Reference (Units ) Status Creatinine 11/30/2023 07:25:51 0.5 0.5-1.0 (mg/dL) Final Glomerular filtration rate/1.73 sq M.predicted [Volume Rate/Area] in Serum, Plasma or Blood by Creatinine-based formula (CKD-EPI) 11/30/2023 07:25:51 >90 >=60 (mL/min) Final eGFR is calculated based on the CKD-EPI 2020 equation Performing Location LABORATORY [facility] - [address] [place] [address]
--- OUTSIDE RECORDS SUMMARY | 2024-02-20 07:44 | External Medical Summary | Summary of Care ---
Author Name Unknown Organization [facility] Address [address] [place] [place] [address] Phone [phone] Care Team Providers Care Academic Coordinator Name Role Phone Hank Spivey MD Primary Care Provider [phone] Reason for Visit * Reason Comments Return Visit Encounter Details Date Type Department Care Team (Late st Contact Info) Description 11/02/2023 1:30 PM EST Office Visit Gynecology/Obstetri maria teresa Ortiz [address] [facility] [place] [address] Odessa Lal CRNP [address] [facility] [place] [address] Nurse Sergey Ortiz Beginnings Return Jayla [address] [place] [address] Encounter for supervision of other normal in second trimester*; Bipolar disease during , antepartum (HCC); Obesity, Class I, BMI 30.0-34.9 (see actual BMI); Short interval between pregnancies affecting , antepartum; cardiac echogenic focus, antepartum, single or unspecified fetus; Nausea and vomiting during Allergies Active Allergy Reactions Criticality Noted Date Comments Food (See Comments) 01/09/2019 Unknown trigger to acute allergic reaction with chest tightness, lip and tongue swelling. documented as of this encounter (statuses as of 11/02/2023) Medications Medication Sig Dispensed Refills Start Date [...] on tongue. 60 Tablet 3 11/02/2023 Active Ondansetron 8 MG Oral Tablet Disintegrating (Zofran)Indications: Nausea and vomiting during Place 1 Tablet on tongue every 8 hours as needed for Nausea. dissolve on tongue. 60 Tablet 3 07/07/2023 4 Discontinue d(Refill) Urea 40 % External Cream Apply to affected areas on chest at night 30 g 0 08/09/2023 4 Discontinue d(Medicatio n List Clean Up) Cephalexin 500 MG Oral Capsule (Keflex) Take 1 Capsule by mouth in the morning and 1 Capsule before bedtime. 20 Capsule 0 09/12/2023 4 Discontinue d(Medicatio n List Clean Up) Cephalexin 500 MG Oral Capsule (Keflex) Take 1 Capsule by mouth in the morning and 1 Capsule before bedtime. 60 Capsule 0 10/14/2023 4 Discontinue d(Medicatio n List Clean Up) documented as of this encounter (statuses as of 11/02/2023) Active Problems Problem Noted Date Diagnosed Date [...] risk for false positive result. Could consider [facility] for ONTD screening. Health counseling 08/04/2023 Overview: [...] anxiety, depression, and bipolar II disorder. Diagnosed [id number] Not on any meds as of 07/07/2023 [...] as of this encounter (statuses as of 11/02/2023) Resolved Problems Problem Noted Date Diagnosed Date [...] any current needs or questions 01/05/2023 Tameka Goayl RN 01/05/2023 Problem Action Taken Date entered [...] Overview: Patient's sister w/ dwarfism. Declined [facility] genetics referral at this time. [...] due date letter for pt to attend [facility] 10/13/2020 Anamaria Bernabe RN 10/13/2020 [...] as of this encounter (statuses as of 11/02/2023) Immunizations Name Administration Dates Next Due DTaP Dipth/Tet/Acell Pertussis (Infanrix), Peds 03/15/2006 HPV Vaccine, 4-Valent 11/29/2014,08/06/2014,/11/2013 Hep A - Hepatitis A (ped/adole, 1-18 [...] money to get more. Never true 03/21/2023 [place] Depression Scale Answer Date Recorded [place] Depression Scale Total 0 07/07/2023 The thought [...] Sign Reading Time Taken Comments Blood Pressure 114/72 11/02/2023 1:30 PM EST Pulse - - Temperature - - Respiratory Rate - - Oxygen Saturation - - Inhaled Oxygen Concentration - - Weight 93.4 kg (206 lb) 11/02/2023 1:30 PM EST Height - - Body Mass Index 34.28 10/04/2023 12:56 PM EST documented in this encounter Progress Notes * Carol Coles LPN - 11/02/2023 1:31 PM EST 24w2d Denies vaginal bleeding/rom + movement Having nausea daily. Denies vomiting. Requesting refills of Zofran * Odessa Lal CRNP - 11/02/2023 1:28 PM EST 24w2d Baby moving well. No ctx/leaking/bleeding. Requests Zofran refills, sent. Some cramping when nausea occurs, resolves. Staying well hydrated. Saw MFM for echogenic focus; with low risk NIPT, no further testing advised. Growth scan with next visit - S>D today and Covid earlier in . Normal growth noted on 21 MFM scan. Labs with next visit, including 3 hr GTT. KAYLENE Alvarado documented in this encounter Nursing Notes * Tameka Goyal RN - 11/02/2023 1:37 PM EST Patient seen by [facility] Director Cpg. Patient denies any questions or concerns. have you cut down with your smoking n/a have you quit n/a have you seen a optical worker no have you seen a social media marketing specialist no are you receiving counseling no have you received dental care during your are you enrolled in WIC yes do you receive food stamps or voss assistance ja Goyal RN documented in this encounter Plan of Treatment Upcoming Encounters Date Type Department Care Team (Late st Contact Info) Description 11/07/2023 2:30 PM EST Telemedicine Nutrition Services, [facility] [address] [place] [address] Marina Osuna, RDN [address] [place] [address] 11/30/2023 7:20 AM EDT Laboratory Laboratory, [facility] [address] [facility] [place] [address] Roxanne Ortiz [facility] [address] [facility] [place] [address] 11/30/2023 8:30 AM EDT Imaging Radiology [facility] 2nd [facility] [address] [address] 11/30/2023 9:30 AM EDT Office Visit Gynecology/Obstetrics [facility] [address] [place] [facility] [place] [address] Sydnie Davis CRNP [address] [facility] [place] [address] Nurse Angel Healthy Beginnings Return [facility] [address] [facility] [place] [address] Scheduled Orders Name Type Priority Associated Diagnoses Orde r Schedule CBC WITH WBC DIFFERENTIAL AND ANEMIA REFLEX WORKUP Lab Routine Encounter for supervision of other normal in second trimester Expected: 11/16/2023 (Approximate), Expires: 11/02/2024 SYPHILIS ANTIBODY SCREEN WITH REFLEX TO RPR Lab Routine Encounter for supervision of other normal in second trimester Expected: 11/16/2023 (Approximate), Expires: 11/02/2024 GESTATIONAL GLUCOSE TOLERANCE, 3 HOUR Lab Routine Encounter for supervision of other normal in second trimester Expected: 11/16/2023 (Approximate), Expires: 11/02/2024 US PREG FOLLOW-UP EACH FETUS Medical Imaging Routine Encounter for supervision of other normal in second trimester Obesity, Class I, BMI 30.0-34.9 (see actual BMI) Expected: 12/01/2023 (Approximate), Expires: 11/30/2024 Health Maintenance Due Date Last Done Comments Pneumococcal Vaccine: Pediat rics (0 to 5 Years) and At-Risk Patients (6 to 64 Years) (1 of 2 - PCV) 2006 Depression Screening 08/20/2020 08/20/2019 COVID-19 Vaccine (1 - 2022-2 4 season) [...] Encounter for supervision of other normal in second trimester- Primary Bipolar disease during , antepartum (HCC) Obesity, Class I, BMI 30.0-34.9 (see actual BMI) Obesity, unspecified Short interval between pregnancies affecting , antepartum cardiac echogenic focus, antepartum, single or unspecified fetus Nausea and vomiting during documented in this encounter Care Teams Academic Coordinator Relationship Specialty Start Date End Date Hank Spivey MD [address] [place] [address] PCP - General Internal Medicine 05/12/23 documented as of this encounter
--- OUTSIDE RECORDS SUMMARY | 2024-02-20 07:44 | External Medical Summary ---
Author Name Unknown Address Unknown Organization [id number]:LABORATORY [facility] [place] - [address] [place] [address] [address] [place] [address] Laboratory Report Ordering Provider Test Date Status JCBACKER 11/30/2023 07:25:51 Final Observation Date Value Abnormality Reference (Units ) Status WBC, Total 11/30/2023 07:25:51 9.51 4.00-10.8 0 (K/uL) Final RBC 11/30/2023 07:25:51 3.87 3.85-5.15 (M/uL) Final Hemoglobin 11/30/2023 07:25:51 11.5 Below low normal 12 .0-15.3 (g/dL) Final Anemia reflex testing trigge rs on a HGB < 12.0 for Females and HGB < 13.0 for Males in accordance with the WHO Anemia Guidelines
Anemia reflex testing triggers on a HGB < 12.0 for Females and HGB < 13.0 for Males in accordance with the WHO Anemia Guidelines HCT 11/30/2023 07:25:51 35.5 Below low normal 36. 0-45.2 (%) Final MCV 11/30/2023 07:25:51 91.7 81.5-97.5 (fL) Final MCH 11/30/2023 07:25:51 29.7 27.0-34.0 (pg) Final MCHC 11/30/2023 07:25:51 32.4 32.0-36.0 (g/dL) Final RDW 11/30/2023 07:25:51 12.8 11.5-15.5 (%) Final Platelets 11/30/2023 07:25:51 209 140-400 (K /uL) Final MPV 11/30/2023 07:25:51 10.6 6.6-11.1 ( fL) Final Nucleated erythrocytes/100 leukocytes [Ratio] in Blood by Automated count 11/30/2023 07:25:51 0 <=0 (/100 WBCs) Final Performing Location LABORATORY [facility] [place] - [address] [facility] [address]
--- OUTSIDE RECORDS SUMMARY | 2024-02-20 07:44 | External Medical Summary ---
Author Name Unknown Address Unknown Organization K01:LABORATORY C - [address] [place] [address] Laboratory Report Ordering Provider Test Date Status JOLIE GREENE 11/30/2023 07:25:51 Final Observation Date Value Abnormality Reference (Units ) Status Folic Acid 11/30/2023 07:25:51 12.1 >4.5 (ng/ mL) Final Performing Location LABORATORY [facility] - [address] [place] [address]
--- OUTSIDE RECORDS SUMMARY | 2024-02-20 07:44 | External Medical Summary ---
Author Name Unknown Address Unknown Organization [id number]:LABORATORY [facility] [place] [address] [place] [address] Laboratory Report Ordering Provider Test Date Status MADI ESTEVEZ 11/30/2023 07:25:51 Final Observation Date Value Abnormality Reference (Units ) Status MYCODE SPECIMEN-SST 11/30/2023 07:25:51 Freezing of extracted DNA, whole blood and/or serum. Final Performing Location LABORATORY C - [address] [place] [address]
--- OUTSIDE RECORDS SUMMARY | 2024-02-20 07:44 | External Medical Summary | Summary of Care ---
Author Name Unknown Organization [facility] Address [address] [place] [address] Phone [phone] Care Team Providers Care Tube Heater Name Role Phone Hank Spivey MD Primary Care Provider [phone] Reason for Visit * Reason Comments Outpatient Testing Encounter Details Date Type Department Care Team (Late st Contact Info) Description 11/30/2023 7:20 AM EDT Laboratory Laboratory, [facility] [address] [place] [address] [facility] [address] [place] [address] [facility] Other*[id number]; Encounter for supervision of other normal in second trimester Allergies Active Allergy Reactions Criticality Noted [...] anxiety, depression, and bipolar II disorder. Diagnosed [id number] Not on any meds as of 07/07/2023 [...] considered. Bipolar II disorder 08/20/2020 Overview: Taking renetta at [facility], following with psychologist Estimated Date of Delivery [...] 03/21/2023 Overview: Patient's sister w/ dwarfism. Declined [facility] genetics referral at this time. [...] due date letter for pt to attend [facility] 10/13/2020 Anamaria Bernabe RN 10/13/2020 2nd [...] money to get more. Never true 03/21/2023 [place] Depression Scale Answer Date Recorded [place] Depression Scale Total 0 07/07/2023 The thought [...] Madalyn Ortiz [address] [place] [address] Tiff Simmons PA-C [address] [place] [address] Nurse Angel Healthy Beginnings Return Jayla [address] [place] [address] Pending Results Name Type Priority Associated Diagnoses Date /Time MYCODE SUBSEQUENT ADULT Lab Routine [employer] Other*[id number] 11/30/2023 7:25 AM EDT CBC WITH WBC DIFFERENTIAL AND ANEMIA REFLEX WORKUP Lab Routine Encounter for supervision of other normal in second trimester 11/30/2023 7:25 AM EDT SYPHILIS ANTIBODY SCREEN WITH REFLEX TO RPR Lab Routine Encounter for supervision of other normal in second trimester 11/30/2023 7:25 AM EDT GESTATIONAL GLUCOSE TOLERANCE, 3 HOUR Lab Routine Encounter for supervision of other normal in second trimester 11/30/2023 7:25 AM EDT MYCODE SST1 Lab Routine [employer] Other*[id number] 11/30/2023 7:25 AM EDT MYCODE SST2 Lab Routine [employer] Other*[id number] 11/30/2023 7:25 AM EDT ANEMIA CBC Lab Routine Encounter for supervision of other normal in second trimester 11/30/2023 7:25 AM EDT DIFFERENTIAL, AUTOMATED Lab Routine Encounter for supervision of other normal in second trimester 11/30/2023 7:25 AM EDT ANEMIA REFLEX CHEMISTRY HOLD Lab Routine Encounter for supervision of other normal in second trimester 11/30/2023 7:25 AM EDT SYPHILIS ANTIBODY SCREEN Lab Routine Encounter for supervision of other normal in second trimester 11/30/2023 7:25 AM EDT 100-G GESTATIONAL GLUCOSE, 3 HOUR Lab Routine Encounter for supervision of other normal in second trimester 11/30/2023 10:29 AM EDT Health Maintenance Due Date Last Done [...] Procedure Name Priority Date/Time Associated Diagnosis Comments 100-G GESTATIONAL GLUCOSE, 2 HOUR Routine 11/30/2023 9:28 AM EDT Encounter for supervision of other normal in second trimester 100-G GESTATIONAL GLUCOSE, 1 HOUR Routine 11/30/2023 8:27 AM EDT Encounter for supervision of other normal in second trimester 100-G GESTATIONAL GLUCOSE, FASTING Routine 11/30/2023 7:25 AM EDT Encounter for supervision of other normal in second trimester documented in this encounter Results * 100-G GESTATIONAL GLUCOSE, 2 HOUR (11/30/2023 9:28 AM EDT) 100-g Gestational Glucose, 2 Hour 107 70 - 154 mg/dL 11/30/2023 10:41 AM EDT LAB[facility]ATORY [place] 57-10 Blood Venous blood specimen / Unknown Venipuncture / Unknown 11/30/2023 9:28 AM EDT 11/30/2023 9:28 AM EDT Odessa MAURICE LAB BLOOD O RDERABLES Performing Organization Address City/[facility]/ZIP Co de Phone Number LABORATORY [place] [address] [place] [address] * 100-G GESTATIONAL GLUCOSE, 1 HOUR (11/30/2023 8:27 AM EDT) 100-g Gestational Glucose, 1 Hour 171 70 - 179 mg/dL 11/30/2023 9:26 AM EDT LAB[facility]ATORY [place] 57-10 Blood Venous blood specimen / Unknown Venipuncture / Unknown 11/30/2023 8:27 AM EDT 11/30/2023 8:27 AM EDT Odessa MAURICE LAB BLOOD O RDERABLES LABORATORY [place] 57-10 [address] [facility] [address] * 100-G GESTATIONAL GLUCOSE, FASTING (11/30/2023 7:25 AM EDT) 100-g Gestational Glucose, Fasting 89 70 - 94 mg/dL 11/30/2023 8:29 AM EDT LAB[facility]ATORY [place] 57-10 Blood Venous blood specimen / Unknown Venipuncture / Unknown 11/30/2023 7:25 AM EDT 11/30/2023 7:25 AM EDT Narrative LABORATORY [place] 57-10 - 11/30/2023 8:29 AM EDT Based on ACOG guideline, gestational diabetes mellitus is diagnosed when any of the following is met: Fasting is greater than or equal to 95 mg/dL 1 hour is greater than or equal to 180 mg/dL 2 hour is greater than or equal to 155 mg/dL 3 hour is greater than or equal to 140 mg/dL Odessa Tianer KAYLENE LAB BLOOD O RDERABLES LABORATORY [facility] [place] 57-10 [address] [facility] [place] [address] documented in this encounter Visit Diagnoses Diagnosis [facility] Other*[id number] Encounter for supervision of other normal in second trimester documented in this encounter Care Teams Tube Heater Relationship Specialty Start Date End Date Hank Spivey [facility] [address] [facility] [place] [address] PCP - General Internal Medicine 05/12/23 documented as of this encounter
--- OUTSIDE RECORDS SUMMARY | 2024-02-20 07:44 | External Medical Summary ---
Author Name Unknown Address Unknown Organization K01:LAB[facility]ATORY [facility] [place] [address] [place] [address] Laboratory Report Ordering Provider Test Date Status JOLIE GREENE 11/30/2023 07:25:51 Final Observation Date Value Abnormality Reference (Units ) Status Vitamin B12 11/30/2023 07:25:51 645 626-9098 (pg/mL) Final Performing Location LAB[facility]ATORY [facility] - [address] [place] [address]
--- OUTSIDE RECORDS SUMMARY | 2024-02-20 07:44 | External Medical Summary ---
Author Name Unknown Address Unknown Organization K01:LABORATORY [facility] [place] - [facility] [place] [address] Laboratory Report Ordering Provider Test Date Status JCBACKER 11/30/2023 07:25:51 Final Observation Date Value Abnormality Reference (Units ) Status Retic, % (auto) 11/30/2023 07:25:51 2.60 Above high normal 0.80-1.90 (%) Final Reticulocytes, Absolute 11/30/2023 07:25:51 102.7 Above high normal 31.3-100.1 (K/uL) Final Reticulocyte fraction, immature 11/30/2023 07:25:51 31.2 Above high normal 2.5-20.6 (%) Final Reticulocyte HGB 11/30/2023 07:25:51 29.2 Below low normal 29.7-37.4 (pg) Final Performing Location LABORATORY [facility] [place] - [address] [place] [address]
--- OUTSIDE RECORDS SUMMARY | 2024-02-20 07:44 | External Medical Summary ---
Author Name Unknown Address Unknown Organization K0G:LABORATORY [facility] [place] 57[address] - [address] [place] [address] Laboratory Report Ordering Provider Test Date Status JOLIE GREENE 11/30/2023 08:27:00 Final Observation Date Value Abnormality Reference (Units ) Status Glucose [Mass/volume] in Serum or Plasma --1 hour post dose glucose 11/30/2023 08:27:00 171 70-179 (mg/dL) Final Performing Location LABORATORY [facility] [place] 57-1 0 - [address] [place] [address]
--- OUTSIDE RECORDS SUMMARY | 2024-02-20 07:44 | External Medical Summary ---
Author Name Unknown Address Unknown Organization K0G:LABORATORY [facility] [place] 57[address]10 - [address] [place] [address] Laboratory Report Ordering Provider Test Date Status JOLIE GREENE 11/30/2023 10:29:34 Final Observation Date Value Abnormality Reference (Units ) Status Glucose [Mass/volume] in Serum or Plasma --3 hours post dose glucose 11/30/2023 10:29:34 101 70-139 (mg/dL) Final Performing Location LABORATORY [facility] [place] 57-1 0 - [address] [place] [address]
--- OUTSIDE RECORDS SUMMARY | 2024-02-20 07:44 | External Medical Summary ---
Author Name Unknown Address Unknown Organization K01:LABORATORY [facility] [place] - [address] [place] [address] Laboratory Report Ordering Provider Test Date Status JOLIE GREENE 11/30/2023 07:25:51 Final Observation Date Value Abnormality Reference (Units ) Status Treponema pallidum Ab [Presence] in Serum by Immunoassay 11/30/2023 07:25:51 Nonreactive Nonreactive Final No serologic evidence of syp hilis. No additional testing clinicially indicated at this time. Consider repeat testing in 2-4 weeks if acute or primary syphilis is suspected. Performing Location LABORATORY [facility] - [address] [place] [address]
--- OUTSIDE RECORDS SUMMARY | 2024-02-20 07:44 | External Medical Summary | Summary of Care ---
Author Name Unknown Organization [facility] Address [address] [place] [address] Phone [phone] Care Team Providers Care Commanding Officer Homicide Squad Name Role Phone Hank Spivey MD Primary Care Provider [phone] Reason for Visit * Evaluate & Treat - Unlimited Visits (Within 10 days (routine)) - Authorized Specialty Diagnoses / Procedures Referred By Danielle mills Referred To Contact Obstetrics/Gynecology / Maternal Medicine Diagnoses Echogenic intracardiac focus of fetus on ultrasound Brigida Ballesteros MD [address] [place] [phone] Referral ID Status Reason Start Date Expiration Date Visits Requested Visits Authorized [id number] Authorized Specialty Services Required 10/04/[phone] Encounter Details Date Type Department Care Team (Late st Contact Info) Description 10/14/2023 1:30 PM EST Office Visit [facility] Teacher OB Maternal Medicine [facility] Daisy Miranda [address] [place] [address] [address] [place] [address] Katie Abarca, DO [address] [place] [address] cardiac echogenic focus, antepartum, single or unspecified fetus*; Encounter for anatomic survey; 21 weeks gestation of Allergies Active Allergy Reactions Criticality Noted Date Comments Food (See Comments) 01/09/2019 Unknown trigger to acute allergic reaction with chest tightness, lip and tongue swelling. documented as of this encounter (statuses as of 10/14/2023) Medications Medication Sig Dispensed Refills Start Date [...] before bedtime. 20 Capsule 0 09/12/2023 Active Cephalexin 500 MG Oral Capsule (Keflex) Take 1 Capsule by mouth in the morning and 1 Capsule before bedtime. 60 Capsule 0 10/14/2023 Active documented as of this encounter (statuses as of 10/14/2023) Active Problems Problem Noted Date Diagnosed Date [...] anxiety, depression, and bipolar II disorder. Diagnosed [id number] Not on any meds as of 07/07/2023 [...] as of this encounter (statuses as of 10/14/2023) Resolved Problems Problem Noted Date Diagnosed Date [...] 03/21/2023 Overview: Patient's sister w/ dwarfism. Declined [facility] genetics referral at this time. Obesity [...] as of this encounter (statuses as of 10/14/2023) Immunizations Name Administration Dates Next Due DTaP [...] money to get more. Never true 03/21/2023 [place] Depression Scale Answer Date Recorded [place] Depression Scale Total 0 07/07/2023 The thought [...] on file documented as of this encounter Progress Notes * Katie Abarca, - 10/14/2023 2:25 PM EST MATERNAL MEDICINE VISIT Sheila Saavedra presented today at 21w4d for an ultrasound and follow-up of her high risk . She was seen for the following indications: Problem List Items Addressed This Visit Circulatory cardiac echogenic focus, antepartum - Primary At your request, Sheila was seen today [...] result. Could consider msAFP for ONTD screening. Other Visit Diagnoses Encounter for anatomic survey 21 weeks gestation of We reviewed today's ultrasound findings. 21w4d for anatomical survey. Normal growth with no ultrasonic evidence of structural abnormalities. LVEF noted. (For full details, please refer to ultrasound report provided separately). Ms. Saavedra's questions were answered to her satisfaction. She was advised to contact our office or her OB provider for any additional questions regarding her . RECOMMENDATIONS: Follow up with MFM for ultrasound as clinically indicated. Thank you for allowing us to participate in the care of this patient. Please call with any questions. Katie Abarca DO 10/14/2023 2:25 PM documented in this encounter Miscellaneous Notes * Assessment & Plan Note - Katie Abarca DO - 10/14/2023 2:13 PM EST Associated Problem(s): cardiac echogenic focus, antepartum At your request, Sheila was seen today [...] result. Could consider msAFP for ONTD screening. documented in this encounter Plan of Treatment Upcoming Encounters Date Type Department Care Team (Late st Contact Info) Description 11/02/2023 1:30 PM EST Office Visit Gynecology/Obstetrics MurphyJacquelinemolly Angel [address] [place] [address] [place], KAYLENE Francisco [address] [place] [address] Nurse Angel [facility] Return Jayla [address] [place] [address] 11/07/2023 2:30 PM EST Telemedicine Nutrition Services, [facility] [address] [place] [address] Marina Osuna, IGNACION [address] [place], [place] [id number] Scheduled Orders Name Type Priority Associated Diagnoses Orde r Schedule MFM US PREG FOLLOW UP EACH FETUS Medical Imaging Routine cardiac echogenic focus, antepartum, single or unspecified fetus Encounter for anatomic survey 21 weeks gestation of 2 Occurrences starting 10/14/2023 until 04/13/2024 Health Maintenance Due Date Last Done Comments [...] as of this encounter Visit Diagnoses Diagnosis cardiac echogenic focus, antepartum, single or unspecified fetus- Primary Encounter for anatomic survey 21 weeks gestation of state, incidental documented in this encounter Care Teams Commanding Officer Homicide Squad Relationship Specialty Start Date End Date Hank Spivey MD [address] [place] [address] PCP - General Internal Medicine 05/12/23 documented as of this encounter
--- OUTSIDE RECORDS SUMMARY | 2024-02-20 07:44 | External Medical Summary ---
Author Name Unknown Address Unknown Organization K01:[facility] [place] [address] [place] [address] Laboratory Report Ordering Provider Test Date Status JOLIE GREENE 11/30/2023 07:25:51 Final Observation Date Value Abnormality Reference (Units ) Status Iron 11/30/2023 07:25:51 44 33-151 (ug/dL) Final Iron-binding capacity 11/30/2023 07:25:51 546 Above high normal 250-425 (ug/dL) Final Transferrin Sat % 11/30/2023 07:25:51 8 Below low normal 15-55 (%) Final Performing Location [facility] [place] [address] [place] [address]
--- OUTSIDE RECORDS SUMMARY | 2024-02-20 07:45 | External Medical Summary | Summary of Care ---
Author Name Unknown Organization [facility] Address [address] [place] [address] Phone [phone] Care Team Providers Care Tool Crib Attendant Name Role Phone Hank Spivey MD Primary Care Provider [phone] Reason for Visit * Reason Comments Follow Up Video visit follow u p on anabell oral dermatitis. Reports area around mouth is less red, and no more burning. Completed antibiotics as ordered. Has not started urea cream, stated she actually had forgotten about it until today. Encounter Details Date Type Department Care Team (Late st Contact Info) Description 08/31/2023 2:50 PM EST Telemedicine Dermatology [address] [address] Janice Hodges PA-C [address] [place] [address] [phone] Perioral dermatitis* Allergies Active Allergy Reactions Criticality Noted Date Comments Food (See Comments) 01/09/2019 Unknown trigger to acute allergic reaction with chest tightness, lip and tongue swelling. documented as of this encounter (statuses as of 08/31/2023) Medications Medication Sig Dispensed Refills Start Date [...] on tongue. 60 Tablet 3 07/07/2023 Active Cephalexin 500 MG Oral Capsule (Keflex) Take 1 Capsule by mouth in the morning and 1 Capsule before bedtime. 20 Capsule 0 08/09/2023 Active Urea 40 % External Cream Apply to affected areas on chest at night 30 g 0 08/09/2023 Active documented as of this encounter (statuses as of 08/31/2023) Active Problems Problem Noted Date Diagnosed Date Health counseling 08/04/2023 Overview: Problem Action Taken Date entered Entered by Date resolved Current needs or questions Patient denies having any current needs or questions 08/04/2023 Tameka Goyal RN 08/04/2023 Short interval between pregn ancies affecting , [...] anxiety, depression, and bipolar II disorder. Diagnosed [id number] Not on any meds as of 07/07/2023 [...] as of this encounter (statuses as of 08/31/2023) Resolved Problems Problem Noted Date Diagnosed Date [...] any current needs or questions 01/05/2023 Tameka Goyla RN 01/05/2023 Problem Action Taken Date entered [...] 03/21/2023 Overview: Patient's sister w/ dwarfism. Declined [facility] genetics referral at this time. Obesity [...] date letter for pt to attend [facility] 10/13/2020 Anamaria Bernabe RN 10/13/2020 2nd [...] as of this encounter (statuses as of 08/31/2023) Immunizations Name Administration Dates Next Due DTaP [...] money to get more. Never true 03/21/2023 [place] Depression Scale Answer Date Recorded [place] Depression Scale Total 0 07/07/2023 The thought [...] as of this encounter Progress Notes * Herman Herbert MD - 08/31/2023 3:10 PM EST I have reviewed the charting notes and orders and associated images and agree with the assessment and plan of Janice Anna PA-C . Herman Herbert MD., Dermatology [facility] Departments [address] [place] [address] * Janice Hodges PA-C - 08/31/2023 2:46 PM EST Nursing Notes: Krsitina Celestin LPN 08/31/23 1438 Signed Patient identified by name and date. Chief Complaint Patient presents with Follow Up Video visit follow up on anabell oral dermatitis. Reports area around mouth is less red, and no more burning. Completed antibiotics as ordered. Has not started urea cream, stated she actually had forgotten about it until today. After connecting to the patient via video, the patient verified their identity with their date of and verbally consented to evaluation and management of their condition through telemedicine. This visit was performed through Telemedicine during the COVID-19 Health Crisis during a state of National Emergency. The patient is aware that we will bill their insurance for this visit following Medicare guidelines, but they may be responsible for some or all of the visit charges if their insurancedeems this "non-covered". Patient location: HOME. I was in a hospital or clinic location. After connecting through televideo,patient was verified with two unique identifiers. Patient (or authorized legal exhibit display representative) was then informed that this was a Telemedicine visit and being conducted confidentially over secure lines. Methods to assure confidentiality were taken. Patient acknowledged consent and understanding of pr ivacy and security of the Telemedicine visit. The patient agreed to participate. This is an established patient evaluated in my specialty within the past three years yes Visit Disposition: Routine follow-up Total call duration was 7 minutes. SUBJECTIVE: History of Present Illness: Sheila Saavedra is a 22 year old female seen today for follow up of perioral dermatitis. Date Last Appointment: 08/09/23(in office) Last attempted treatments include cephalexin 500mg BID x 1 month with improvement of redness or flaking, no longer having any burning sensation. Pt currently in second trimester of . REVIEW OF SYSTEMS: SKIN: No other new or changing moles. HEME/LYMPH: No new or enlarging lumps or bumps. MEDICA TIONS: Current Outpatient Medications Medication Sig Dispense Refill Albuterol Sulfate HFA 108 (90 Base) MCG/ACT Inhalation Aerosol Solution Inhale 2 Puffs by mouth every 4 hours as needed for Wheezing. 18 g 5 [facility] Gummy 0.18-25 MG Oral Tablet Chewable daily Ondansetron 8 MG Oral Tablet Disintegrating (Zofran) Place 1 Tablet on tongue every 8 hours as needed for Nausea. dissolve on tongue. 60 Tablet 3 Cephalexin 500 MG Oral Capsule (Keflex) Take 1 Capsule by mouth in the morning and 1 Capsule beforebedtime. 20 Capsule 0 Urea 40 % External Cream Apply to affected areas on chest at night 30 g 0 No current facility-administered medications for this visit. ALLERG IES: Food (see comments) OBJECTIVE: GEN: Healthy, alert, no distress, appears oriented, pleasant, and cooperative. SKIN: Detailed exam of face including lids and lips completed (video reviewed) and are normal except: 1. Poor video quality- postinflammatory hyperpigmentation of R lower cutaneous lip ASSESS MENT/PLAN: 1. Perioral dermatitis - currently quiescent Continue gentle skin care and good moisturizing - pt to send myG if recurrence Follow-up: as needed There were no barriers tolearning and no other pain was related to today's visit. The patient and/or person accompanying patient demonstrates understanding of the visit and treatment. Janice Hodges PA-C 08/31/2023 2:46 PM Ref: SELF[[id number]] NO STREET ADDRESS AVAILABLE None (office) None (fax) PCP: HANK SPIVEY [address] [place] [address] [phone] documented in this encounter Nursing Notes * Kristina Celestin LPN - 08/31/2023 2:38 PM EST Patient identified by name and date. Chief Complaint Patient presents with Follow Up Video visit follow up on anabell oral dermatitis. Reports area around mouth is less red, and no more burning. Completed antibiotics as ordered. Has not started urea cream, stated she actually had forgotten about it until today. documented in this encounter Plan of Treatment Upcoming Encounters Date Type Department Care Team (Late st Contact Info) Description 09/01/2023 4:15 PM EST Office Visit Gynecology/Obstetrics Madalyn Ortiz [address] [facility] [place] [address] Tiff Simmons PA-C [address] [place] [address] Nurse Angel [facility] Return Jayla [address] [facility] [place] [address] 2023 4:00 PM EST Telemedicine Nutrition Services, [facility] [address] [place] [address] Marina Osuna RDN [address] [place] [address] Health Maintenance Due Date Last Done Comments [...] as of this encounter Visit Diagnoses Diagnosis Perioral dermatitis- Primary Rosacea documented in this encounter Care Teams Tool Crib Attendant Relationship Specialty Start Date End Date Hank Spivey MD [address] [place] [address] PCP - General Internal Medicine 05/12/23 documented as of this encounter
--- OUTSIDE RECORDS SUMMARY | 2024-02-20 07:45 | External Medical Summary | Summary of Care ---
Author Name Unknown Organization [facility] Address [address] [place] [facility] [place] [place] [address] Phone [phone] Care Team Providers Care Automatic Blocker Name Role Phone Hank Spivey MD Primary Care Provider [phone] Reason for Referral * (Within 10 days (routine)) - Authorized Specialty Diagnoses / Procedures Referred By Contac t Referred To Contact Diagnoses Echogenic intracardiac focus of fetus on ultrasound Procedures QUAD SCREEN Brigida Ballesteros MD [address] [place] [address] Referral ID Status Reason Start Date Expiration Date V isits Requested Visits Authorized [id number] Authorized 10/04/2023 999 999 * Evaluate & Treat - Unlimited Visits (Within 10 days (routine)) - Authorized Specialty Diagnoses / Procedures Referred By Danielle mills Referred To Contact Obstetrics/Gynecology / Maternal Medicine Diagnoses Echogenic intracardiac focus of fetus on ultrasound Brigida Ballesteros MD [address] [place] [address] Referral ID Status Reason Start Date Expiration Date Visits Requested Visits Authorized [id number] Authorized Specialty Services Required 10/04/2023 999 999 [...] Encounter Details Date Type Department Care Team (Alan st Contact Info) Description 10/04/2023 Telephone Gynecology/Obstetrics Madalyn Ortiz [address] [place] [address] Tiff Simmons PA-C [address] [place] [address] Test Results (Unexpected or Indeterminate ... Allergies Active Allergy Reactions Criticality Noted Date Comments Food (See Comments) 01/09/2019 Unknown trigger to acute allergic reaction with chest tightness, lip and tongue swelling. documented as of this encounter (statuses as of 10/04/2023) Medications Medication Sig Dispensed Refills Start Date [...] as of this encounter (statuses as of 10/04/2023) Active Problems Problem Noted Date Diagnosed Date [...] anxiety, depression, and bipolar II disorder. Diagnosed [id number] Not on any meds as of 07/07/2023 [...] as of this encounter (statuses as of 10/04/2023) Resolved Problems Problem Noted Date Diagnosed Date [...] 03/21/2023 Overview: Patient's sister w/ dwarfism. Declined [facility] genetics referral at this time. Obesity [...] as of this encounter (statuses as of 10/04/2023) Immunizations Name Administration Dates Next Due DTaP [...] money to get more. Never true 03/21/2023 [place] Depression Scale Answer Date Recorded [place] Depression Scale Total 0 07/07/2023 The thought [...] encounter Miscellaneous Notes * Telephone Encounter - Jennifer Lynne LPN - 10/04/2023 4:30 PM EST Patient notified. Agreeable to MFM consult. * Telephone Encounter - Brigida Ballesteros MD - 10/04/2023 4:24 PM EST MFM consult placed Quad screen ordered (if patient desires to do) * Telephone Encounter - Jennifer Lynne LPN - 10/04/2023 4:18 PM EST Will have landscape contractor provider review. * Telephone Encounter - Tomy Solis OSA - 10/04/2023 4:09 PM EST Hello- The radiologist discovered an unexpected or indeterminate finding [id number]and asks that you review the following report. [...] Thank you, JIMENA Lucia Client Service Rep [facility] documented in this encounter Plan of Treatment Upcoming Encounters Date Type Department Care Team (Late st Contact Info) Description 2023 4:00 PM EST Telemedicine Nutrition Services, [facility] [address] [place] [address] Marina Osuna, RDN [address] [place] [address] 11/02/2023 1:30 PM EST Office Visit Gynecology/Obstetrics [facility] [address] [place] [address] Odessa Lal CRNP [address] [place] [address] Nurse Angel [facility] Return [facility] [address] [place] [address] Scheduled Orders Name Type Priority Associated Diagnoses Orde r Schedule MFM US MATERNAL 1ST FETUS Medical Imaging Routine Echogenic intracardiac focus of fetus on ultrasound Expected: 10/04/2023, Expires: 11/02/2024 QUAD SCREEN Lab Routine Echogenic intracardiac focus of fetus on ultrasound Expected: 10/04/2023, Expires: 10/04/2024 Scheduled Referrals Name Type Priority Associated Diagnoses [...] screening documented in this encounter Care Teams Automatic Blocker Relationship Specialty Start Date End Date Hank Spivey MD [address] [place] [address] PCP - General Internal Medicine 05/12/23 documented as of this encounter
--- OUTSIDE RECORDS SUMMARY | 2024-02-20 07:45 | External Medical Summary | Summary of Care ---
Author Name Unknown Organization [facility] Address [address] [facility] [place] [address] Phone [phone] Care Team Providers Care Salesforce Developer Name Role Phone Hank Spivey MD Primary Care Provider [phone] Reason for Visit * Reason Comments [facility] Return Encounter Details Date Type Department Care Team (Late st Contact Info) Description 09/14/2023 11:30 AM EST Office Visit Gynecology/Obstetri maria teresa Ortiz [address] [place] [address] Tiff Simmons PA-C [address] [place] [address] Nurse Angel [facility] Return Jayla [address] [place] [address] Encounter for supervision of other normal in third trimester*; Bipolar disease during , antepartum (HCC); Obesity, Class I, BMI 30.0-34.9 (see actual BMI); Short interval between pregnancies affecting , antepartum Allergies Active Allergy Reactions Criticality Noted Date Comments Food (See Comments) 01/09/2019 Unknown trigger to acute allergic reaction with chest tightness, lip and tongue swelling. documented as of this encounter (statuses as of 09/14/2023) Medications Medication Sig Dispensed Refills Start Date [...] as of this encounter (statuses as of 09/14/2023) Active Problems Problem Noted Date Diagnosed Date Health counseling 08/04/2023 Overview: Problem Action Taken Date entered Entered by Date resolved Current needs or questions Patient denies having any current needs or questions 08/04/2023 Tameka Goyal RN 08/04/2023 Problem Action Taken Date entered Entered by Date resolved Current needs or questions Patient denies having any current needs or questions 09/14/2023 Tameka Goyal RN 09/14/2023 Short interval between pregn ancies affecting , [...] anxiety, depression, and bipolar II disorder. Diagnosed [id number] Not on any meds as of 07/07/2023 [...] 08/20/2020 Overview: Taking buspar and lamicatal at [facility], following with psychologist Estimated Date of Delivery Comme nts Yes 02/20/2024 Based on Ultraso und documented as of this encounter (statuses as of 09/14/2023) Resolved Problems Problem Noted Date Diagnosed Date [...] any current needs or questions 12/29/2022 Tameka Goyal, DALIA 12/29/2022 Problem Action Taken Date entered Entered by Date resolved 3rd trimester education education given 12/29/2022 Tameka Goyal, DALIA 12/29/2022 Problem Action Taken Date entered Entered [...] 03/21/2023 Overview: Patient's sister w/ dwarfism. Declined [facility] genetics referral at this time. Obesity [...] due date letter for pt to attend [facility] 10/13/2020 Anamaria Bernabe RN 10/13/2020 [...] as of this encounter (statuses as of 09/14/2023) Immunizations Name Administration Dates Next Due DTaP [...] money to get more. Never true 03/21/2023 [place] Depression Scale Answer Date Recorded [place] Depression Scale Total 0 07/07/2023 The thought [...] Sign Reading Time Taken Comments Blood Pressure 104/68 09/14/2023 11:31 AM EST Pulse - - Temperature - - Respiratory Rate - - Oxygen Saturation - - Inhaled Oxygen Concentration - - Weight 91.7 kg (202 lb 3.2 oz) 09/14/2023 11:31 AM EST Height 165.1 cm (5' 5") 09/14/2023 11:31 AM EST Body Mass Index 33.65 09/14/2023 11:31 AM EST documented in this encounter Progress Notes * Tiff Simmons PA-C - 09/14/2023 11:27 AM EST 17w2d Doing well. Denies bleeding, LOF, contractions. Low risk Qnatal. Reviewed ONTD screen, patient declines. Anatomy in 3 weeks with ROB. Tiff Simmons PA-C documented in this encounter Nursing Notes * Tameka Goyal RN - 09/14/2023 11:33 AM EST Patient here for YANCY visit 17w2d No concerns Anatomy pended Patient seen by [facility] Leave Specialist. Patient denies any questions or concerns. documented in this encounter Plan of Treatment Upcoming Encounters Date Type Department Care Team (Late st Contact Info) Description 10/04/2023 11:45 AM EST Imaging Radiology [facility] [address] [facility] [address] 10/04/2023 1:15 PM EST Office Visit Gynecology/Obstetrics [facility] [address] [facility] [place] [address] BackerOdessa CRNP [address] [facility] [place] [address] Nurse Angel [facility] Return [facility] [address] [facility] [place] [address] 2023 4:00 PM EST Telemedicine Nutrition Services, [facility] [address] [place] [address] Marina Osuna, RDN [address] [place] [address] Scheduled Orders Name Type Priority Associated Diagnoses Orde r Schedule US PREG SINGLE/1ST GEST, 14 WEEKS OR LATER Medical Imaging Routine Encounter for supervision of other normal in third trimester Expected: 09/28/2023, Expires: 10/15/2024 Health Maintenance Due Date Last Done Comments COVID-19 Vaccine (#1) 04/09/2001 Pneumococcal Vaccine: Pediat rics (0 to 5 Years) and At-Risk Patients (6 to 64 Years) (1 - PCV) 2006 Depression Screening 08/20/2020 08/20/2019 Influenza Vaccine (FLU shot) (#1) 2023 05/28/2014, 08/22/2007, 10/03/2006, Additional history exists Gonorrhea / Chlamydia Screen 07/07/20243, 06/10/2022, 08/20/2020, Additional history exists Pap Smear [...] Short interval between pregnancies affecting , antepartum documented in this encounter Care Teams Salesforce Developer Relationship Specialty Start Date End Date Hank Spivey MD [address] [place] [address] PCP - General Internal Medicine 05/12/23 documented as of this encounter
--- OUTSIDE RECORDS SUMMARY | 2024-02-20 07:45 | External Medical Summary | Summary of Care ---
Author Name Unknown Organization [facility] Address [address] [place] [address] Phone [phone] Care Team Providers Care Vp Software Support Name Role Phone Hank Spivey MD Primary Care Provider [phone] Reason for Visit * Reason Comments Follow [...] Description 08/31/2023 2:50 PM EST Telemedicine Dermatology [address] [address] Janice Hodges PA-C [address] [place] [address] [phone] Perioral dermatitis* Allergies Active Allergy Reactions Criticality [...] anxiety, depression, and bipolar II disorder. Diagnosed [id number] Not on any meds as of 07/07/2023 [...] 03/21/2023 Overview: Patient's sister w/ dwarfism. Declined [facility] genetics referral at this time. Obesity [...] letter for pt to attend [facility] 10/13/2020 Anamaria Bernabe RN 10/13/2020 2nd [...] money to get more. Never true 03/21/2023 [place] Depression Scale Answer Date Recorded [place] Depression Scale Total 0 07/07/2023 The thought [...] with the assessment and plan of Janice Anan PA-C . Herman Herbert MD., Dermatology [facility] Outpatient Specialty Departments [address] [place] [address] * Janice Hodges PA-C - 08/31/2023 2:46 PM EST Nursing Notes: Kristina Celestin LPN 08/31/23 1438 Signed Patient identified [...] two unique identifiers. Patient (or authorized legal representative government relations) was then informed that this was a [...] Janice Hodges PA-C 08/31/2023 2:46 PM Ref: SELF[[id number]] NO STREET ADDRESS AVAILABLE None (office) None (fax) PCP: HANK SPIVEY [address] [place] [place] [address] [phone] documented in this encounter Nursing Notes * [...] Office Visit Gynecology/Obstetrics Madalyn Ortiz [address] [facility] [place] [address] Tiff Simmons PA-C [address] [place] [address] Nurse Angel [facility] Return Jayla [address] [facility] [place] [address] 2023 4:00 PM EST Telemedicine Nutrition Services, [facility] [address] [place] [address] Marina Osuna RDN [address] [place] [address] Health Maintenance Due Date Last Done Comments [...] Rosacea documented in this encounter Care Teams Vp Software Support Relationship Specialty Start Date End Date Hank Spivey MD [address] [place] [address] PCP - General Internal Medicine 05/12/23 documented as of this encounter
--- OUTSIDE RECORDS SUMMARY | 2024-02-20 07:45 | External Medical Summary | Summary of Care ---
Author Name Unknown Organization [facility] Address [address] [facility] [address] Phone [phone] Care Team Providers Care Vice President Of Communications Name Role Phone Hank Spivey MD Primary Care Provider [phone] Reason for Visit * Reason Comments [facility] Return Encounter Details Date Type Department Care Team (Late st Contact Info) Description 10/04/2023 1:15 PM EST Office Visit Gynecology/Obstetri maria teresa Ortiz [address] [place] [address] Odessa Lal CRNP [address] [place] [address] Nurse Angel [facility] Return Jayla [address] [facility] [place] [address] Encounter for supervision of other normal in [...] anxiety, depression, and bipolar II disorder. Diagnosed [id number] Not on any meds as of 07/07/2023 [...] considered. Bipolar II disorder 08/20/2020 Overview: Taking busarmando and mirna at [facility], following with psychologist Estimated Date of [...] any current needs or questions 12/16/2022 Tameka Goyal, DALIA 12/16/2022 Problem Action Taken Date entered Entered [...] 03/21/2023 Overview: Patient's sister w/ dwarfism. Declined [facility] genetics referral at this time. [...] due date letter for pt to attend [facility] 10/13/2020 Anamaria Bernabe RN 10/13/2020 [...] money to get more. Never true 03/21/2023 [place] Depression Scale Answer Date Recorded [place] Depression Scale Total 0 07/07/2023 The thought [...] Sign Reading Time Taken Comments Blood Pressure 106/66 10/04/2023 12:56 PM EST Pulse - - Temperature - - Respiratory Rate - - Oxygen Saturation - - Inhaled Oxygen Concentration - - Weight 92.5 kg (204 lb) 10/04/2023 12:56 PM EST Height 165.1 cm (5' 5") 10/04/2023 12:56 PM EST Body Mass Index 33.95 10/04/2023 12:56 PM EST documented in this encounter Progress Notes * Odessa Lal CRNP - 10/04/2023 12:59 PM EST 20w1d Anatomy scan today, report in process. Having a girl. +cardiac activity on scan. No concerns, declines quad screen. 4 week return [place]LENE Alvarado documented in this encounter Nursing Notes * Renetta Dominguez LPN - 10/04/2023 12:57 PM EST 20w1d Anatomy today. Denies concerns. documented in this encounter Plan of Treatment Upcoming Encounters Date Type Department Care Team (Late st Contact Info) Description 2023 4:00 PM EST Telemedicine Nutrition Services, [address] [address] Marina Osuna, RDN [address] [place] [address] 11/02/2023 1:30 PM EST Office Visit Gynecology/Obstetrics Madalyn Ortiz [address] [facility] [place] [address] Odessa Lal CRNP [address] [place] [address] Nurse Angel [facility] Return Jayla [address] [address] Health Maintenance Due Date Last Done Comments [...] antepartum documented in this encounter Care Teams Vice President Of Communications Relationship Specialty Start Date End Date Hank Spivey MD [address] [place] [address] PCP - General Internal Medicine 05/12/23 documented as of this encounter
--- OUTSIDE RECORDS SUMMARY | 2024-02-20 07:45 | External Medical Summary | Summary of Care ---
Author Name Unknown Organization [facility] Address [address] [facility] [place] [address] Phone [phone] Care Team Providers Care Cvor Nurse Name Role Phone Hank Spivey MD Primary Care Provider [phone] Reason for Visit * Reason Comments [facility] Return Encounter Details Date Type Department Care Team (Late st Contact Info) Description 09/14/2023 11:30 AM EST Office Visit Gynecology/Obstetri maria teresa Ortiz [address] [place] [address] Tiff Simmons PA-C [address] [place] [address] Nurse Angel [facility] Return Jayla [address] [place] [address] Encounter for supervision of other normal in [...] having any current needs or questions 08/04/2023 Taemka Goyal RN 08/04/2023 Problem Action Taken Date [...] anxiety, depression, and bipolar II disorder. Diagnosed [id number] Not on any meds as of 07/07/2023 [...] 08/20/2020 Overview: Taking buspar and lamicatal at [facility], following with psychologist Estimated Date of [...] 03/21/2023 Overview: Patient's sister w/ dwarfism. Declined [facility] genetics referral at this time. Obesity [...] due date letter for pt to attend [facility] 10/13/2020 Anamaria Bernabe RN 10/13/2020 [...] any current needs or questions 01/12/2021 Perlita aVn RN 01/12/2021 Problem Action Taken Date entered [...] money to get more. Never true 03/21/2023 [place] Depression Scale Answer Date Recorded [place] Depression Scale Total 0 07/07/2023 The thought [...] No concerns Anatomy pended Patient seen by [facility] Animal Cytologist. Patient denies any questions or concerns. documented in this encounter Plan of Treatment Upcoming Encounters Date Type Department Care Team (Late st Contact Info) Description 10/04/2023 11:45 AM EST Imaging Radiology [facility] [address] [facility] [place] [address] 10/04/2023 1:15 PM EST Office Visit Gynecology/Obstetrics [facility] [address] [facility] [place] [address] BackerOdessa CRNP [address] [facility] [place] [address] Nurse Angel [facility] [address] [facility] [address] 2023 4:00 PM EST Telemedicine Nutrition Services, [facility] [address] [place] [address] Marina Osuna, RDN [address] [place] [address] Scheduled Orders Name Type Priority Associated Diagnoses [...] antepartum documented in this encounter Care Teams Cvor Nurse Relationship Specialty Start Date End Date Hank Spivey MD [address] [place] [address] PCP - General Internal Medicine 05/12/23 documented as of this encounter
--- OUTSIDE RECORDS SUMMARY | 2024-02-20 07:45 | External Medical Summary | Summary of Care ---
Author Name Unknown Organization [facility] Address [address] [place] [address] Phone [phone] Care Team Providers Care Corrections Sergeant Name Role Phone Hank Spivey MD Primary Care Provider [phone] Encounter Details Date Type Department Care Team (Late st Contact Info) Description 09/26/2023 Orders Only Outcomes Research Department [address], [place] [id number] Yasmin Parr CHRA [employer] Research Other*[id number] Allergies Active Allergy Reactions Criticality Noted Date Comments Food (See Comments) 01/09/2019 Unknown trigger to acute allergic reaction with chest tightness, lip and tongue swelling. documented as of this encounter (statuses as of 09/26/2023) Medications Medication Sig Dispensed Refills Start Date [...] as of this encounter (statuses as of 09/26/2023) Active Problems Problem Noted Date Diagnosed Date [...] anxiety, depression, and bipolar II disorder. Diagnosed [id number] Not on any meds as of 07/07/2023 [...] as of this encounter (statuses as of 09/26/2023) Resolved Problems Problem Noted Date Diagnosed Date [...] 03/21/2023 Overview: Patient's sister w/ dwarfism. Declined [facility] genetics referral at this time. Obesity in [...] due date letter for pt to attend [facility] 10/13/2020 Anamaria Bernabe RN 10/13/2020 2nd trimester [...] as of this encounter (statuses as of 09/26/2023) Immunizations Name Administration Dates Next Due DTaP [...] money to get more. Never true 03/21/2023 [place] Depression Scale Answer Date Recorded [place] Depression Scale Total 0 07/07/2023 The thought [...] Description 10/04/2023 11:45 AM EST Imaging Radiology [facility] [address] [place] [address] 10/04/2023 1:15 PM EST Office Visit Gynecology/Obstetrics Madalyn Ortiz [address] [place] [address] Odessa Lal CRNP [address] [place] [address] Nurse Angel [facility] Return Jayla [address] [place] [address] 2023 4:00 PM EST Telemedicine Nutrition Services, [facility] [address] [place] [address] Marina Osuna, RDN [address] [place] [address] Scheduled Orders Name Type Priority Associated Diagnoses Orde r Schedule MYCODE SUBSEQUENT ADULT Lab Routine [employer] Other*[id number] Every 6 Months for 2 Occurrences starting 09/26/2023 until 10/15/2024 Health Maintenance Due Date Last Done [...] as of this encounter Visit Diagnoses Diagnosis [employer] Other*[id number] documented in this encounter Care Teams Corrections Sergeant Relationship Specialty Start Date End Date Hank Spivey MD [address] [place] [address] PCP - General Internal Medicine 05/12/23 documented as of this encounter
--- OUTSIDE RECORDS SUMMARY | 2024-02-20 07:45 | External Medical Summary | Summary of Care ---
Author Name Unknown Organization [facility] Address [address] [facility] [place] [address] Phone [phone] Care Team Providers Care Director Of Income Tax Name Role Phone Hank Spivey MD Primary Care Provider [phone] Reason for Referral * (Within 10 days (routine)) - Authorized Specialty Diagnoses / Procedures Referred By Contac t Referred To Contact Diagnoses Echogenic intracardiac focus of fetus on ultrasound Procedures QUAD SCREEN Brigida Ballesteros MD [address] [place] [address] Referral ID Status Reason Start Date Expiration Date V isits Requested Visits Authorized [id number] Authorized 10/04/2023 999 999 * Evaluate & Treat - Unlimited Visits (Within 10 days (routine)) - Authorized Specialty Diagnoses / Procedures Referred By Danielle mills Referred To Contact Obstetrics/Gynecology / Maternal Medicine Diagnoses Echogenic intracardiac focus of fetus on ultrasound Brigida Ballesteros MD [address] [place] [address] Referral ID Status Reason Start Date Expiration Date Visits Requested Visits Authorized [id number] Authorized Specialty Services Required 10/04/2023 999 999 [...] Madalyn Ortiz [address] [place] [address] Tiff Simmons PA-C [address] [place] [address] Test Results (Unexpected or Indeterminate ... Allergies [...] anxiety, depression, and bipolar II disorder. Diagnosed [id number] Not on any meds as of 07/07/2023 [...] 03/21/2023 Overview: Patient's sister w/ dwarfism. Declined [facility] genetics referral at this time. [...] 1-18 Yrs) 03/26/2009,03/15/2006 Hepatitis B, 0-19 yrs 07/26/2001,2000, IPV - Polio Virus Vaccine (Inact) 2005,05/23/2002,03/28/2001,01/13 [...] money to get more. Never true 03/21/2023 [place] Depression Scale Answer Date Recorded [place] Depression Scale Total 0 07/07/2023 The thought [...] - 10/04/2023 4:18 PM EST Will have friction welding machine operator provider review. * Telephone Encounter - Tomy Solis OSA - 10/04/2023 4:09 PM EST Hello- The radiologist discovered an unexpected or indeterminate finding on t ([id number])and asks that you review the following report. [...] Rep [facility] documented in this encounter Plan of Treatment Upcoming Encounters Date Type Department Care Team (Late st Contact Info) Description 2023 4:00 PM EST Telemedicine Nutrition Services, [facility] [address] [place] [address] Marina Osuna, RDN [address] [place] [address] 11/02/2023 1:30 PM EST Office Visit Gynecology/Obstetrics Jeffreymolly Ortiz [address] [facility] [place] [address] Odessa Lal CRNP [address] [place] [address] Nurse Angel [facility] Return [facility] [address] [place] [address] Scheduled Orders Name Type Priority Associated Diagnoses [...] screening documented in this encounter Care Teams Director Of Income Tax Relationship Specialty Start Date End Date Hank Spivey MD [address] [place] [address] PCP - General Internal Medicine 05/12/23 documented as of this encounter
[2024-02-20] MEDS ORDERED: OXYTOCIN 30 UNITS/NSS 30 UNITS/500 ML BAG IV PRN (08:33)
[2024-02-20] MEDS ORDERED: LIDOCAINE 1% LOCAL 20 ML VIAL INFIL PRN (08:33)
[2024-02-20 09:10] LABS: Hematocrit (blood only) 36.4 % (37.0-47.0); Hemoglobin 12.1 g/dl (12.0-16.0); Mean Corpuscular Hgb Conc 33.2 g/dL (32.0-36.0); Mean Corpuscular Volume 87.3 fL (80.0-100.0); Mean Platelet Volume 11.1 fL (9.4-12.4); Platelet Count 145 K/uL (130-400); RDW Coefficient of Variation 15.4 % (11.5-14.5); RDW Standard Deviation 49.1 fL (36.4-46.3); Red Blood Count 4.17 M/uL (4.20-5.40); White Blood Count 9.83 K/ul (4.8-10.8)
[2024-02-20] MEDS: OXYTOCIN 30 UNITS/NSS 30 UNITS/500 ML BAG IV PRN ×2 (09:20→20:45)
[2024-02-20] MEDS: LACTATED RINGER'S 1,000 ML IV PRN (09:20)
[2024-02-20] MEDS: PENICILLIN GK 6 MU in DEXTROSE 5% 250 ML IV STA (09:23)
--- NOTE | 2024-02-20 09:44 | History & Physical Report ---
Date of Service February 20, 2024 Assessment & Plan Admission and Anticipated Discharge Date Admission Date: February 20, 2024 History of Present Illness Chief Complaint: induction of labor Primary Care Provider: Kim Parker DO 23 F P2012 at 40 weeks admitted for IOL. GBS is positive. Allergies Allergy/AdvReac Type Severity Reaction Status Date / Time No Known Allergies Allergy Verified 02/20/24 07:55 Home Medications Medication Instructions Recorded Confirmed Type albuterol sulfate 90 mcg/actuation 2 inh inhalation Q4 PRN Shortness 10/12/21 02/20/24 History aerosol inhaler Of Breath prenat.vits,iva,[id number] 1 tab PO DAILY 02/01/23 02/20/24 History Iron (ferrous sulfate) 1 tab PO DAILY 02/20/24 02/20/24 History Patient History Medical History (spontaneous vaginal delivery) ADHD COVID-22 December 2020 Anaphylactic reaction due to unspecified food Bipolar 2 disorder Anxiety Depression Surgical History History of tonsillectomy [place] teeth extracted Family History Other Cancer Diabetes Heart disease Hypertension Social History Smoking Status: Never smoker Tobacco Type: E-cigarettes / Vaping Hx Alcohol Use: No Hx Substance Use: No Preferred Language: Egyptian Communication Ability: Effective Oxyacetylene Welder Required: No Beliefs That Will Affect Care: None marital status: Current Living Situation: Spouse and Family Current Living Situation Comment: and daughter current occupational status: unemployed Other Information That Helps Us Care for You: No Feels Safe at Home: Yes Safety Concerns: Feels Safe At This Time Gender Identity: Female Assistive Devices: None OB History x2 PICC NURSE History neg Review of Systems All systems reviewed & are unremarkable except as noted in HPI & below Physical Exam Constitutional: WD/WN, vitals as above Eyes: PERRL, conjunctivae normal, anicteric sclerae Respiratory: normal respiratory effort, lungs clear to auscultation Cardiovascular: RRR, no murmur, no edema Gastrointestinal (Abdomen): normal bowel sounds, soft, nontender, no hepatosplenomegaly Musculoskeletal: Extremities: extremities normal to inspection Skin: no rashes, warm and dry Neurologic: patellar DTR's 2+ bilat, sensation intact Psychiatric: A+Ox3, euthymic affect Genitourinary: Manual OB Exam: + cervical dilation 1 cm and 2 cm, + cervical effacement 50% and + station -2 OB Exam Monitor Tracing: + external FHT monitor used, + external uterine monitor used, + category I and + normal FHT variability will start Oxytocin to induce labor Results & Data Vital Signs (Past 12 Hours) Vital Signs Temp Pulse Resp BP 02/20/24 09:19 97 H 124/74 02/20/24 07:42 36.7 C 20 02/20/24 07:41 96 H 130/71 Code Status & VTE Plan VTE Prophylaxis Plan VTE Prophylaxis will be ordered: No
--- NOTE | 2024-02-20 12:44 | Labor Progress Brief Note ---
Date of Service February 20, 2024 Assessment & Plan Admission and Anticipated Discharge Date Admission Date: February 20, 2024 Physical Exam Genitourinary: Manual OB Exam: + cervical dilation 1 cm and 2 cm, + cervical effacement 50% and + station -2 OB Exam Monitor Tracing: + external FHT monitor used, + external uterine monitor used, + category I and + normal FHT variability Results & Data Vital Signs (Past 12 Hours) Vital Signs Temp Pulse Resp BP 02/20/24 11:58 88 108/67 02/20/24 11:02 18 02/20/24 11:02 36.7 C 18 02/20/24 11:00 84 121/75 02/20/24 10:00 90 124/62 02/20/24 09:19 97 H 124/74 02/20/24 07:42 36.7 C 02/20/24 07:41 96 H 130/71
[2024-02-20] MEDS: PENICILLIN GK 3 MU in DEXTROSE 5% 100 ML IV PRN (13:30)
--- NOTE | 2024-02-20 16:53 | Labor Progress Brief Note ---
Date of Service February 20, 2024 Assessment & Plan Admission and Anticipated Discharge Date Admission Date: February 20, 2024 Physical Exam Genitourinary: Manual OB Exam: + cervical dilation 2 cm, + cervical effacement 50%, + station -2 and + amniotic fluid (I attempted to place Voss balloon in cervix but kept slipping out. ) clear OB Exam Monitor Tracing: + external FHT monitor used, + external uterine monitor used, + category I and + normal FHT variability AROM with Amni-hook clear fluid Results & Data Vital Signs (Past 12 Hours) Vital Signs Temp Pulse Resp BP 02/20/24 16:19 80 120/76 02/20/24 15:01 36.7 C 85 121/71 02/20/24 13:58 80 18 117/70 02/20/24 13:06 83 126/76 02/20/24 11:58 88 108/67 02/20/24 11:02 18 02/20/24 11:02 36.7 C 18 02/20/24 11:00 84 121/75 02/20/24 10:00 90 124/62 02/20/24 09:19 97 H 124/74 02/20/24 07:42 36.7 C 20 02/20/24 07:41 96 H 130/71
[2024-02-20] MEDS: BUTORPHANOL TARTRATE 2 MG/ML VIAL IV ONE (17:21)
[2024-02-20] MEDS: BUTORPHANOL TARTRATE 2 MG/ML VIAL ONE (17:40)
[2024-02-20] MEDS ORDERED: fentANYL 2 MCG/ML BUPIVacaine 0.125%-NSS 100ML BAG EPI PRN (17:46)
[2024-02-20] MEDS ORDERED: NALBUPHINE HCL 5 MG in SYRINGE 0 ML IV PRN (17:46)
[2024-02-20] MEDS ORDERED: NALOXONE HCL 1 MG in SODIUM CHLORIDE 0.9% 1,000 ML IV PRN (17:46)
[2024-02-20] MEDS ORDERED: fentaNYL citrate PF 100 MCG/2 ML VIAL EPI PRN (17:46)
[2024-02-20] MEDS ORDERED: SODIUM CHLORIDE 0.9% PF INJ 10 ML VIAL EPI PRN (17:46)
[2024-02-20] MEDS ORDERED: diphenhydrAMINE 50 MG/ML VIAL IV PRN (17:46)
[2024-02-20] MEDS ORDERED: LIDOCAINE 2% MPF LOCAL 5 ML VIAL EPI PRN (17:46)
[2024-02-20] MEDS ORDERED: ePHEDrine sulfate 50 MG/ML AMP IV PRN (17:46)
[2024-02-20] MEDS ORDERED: ROPIVACAINE 0.5% PF 5 MG/ML 20 ML VIAL EPI PRN (17:46)
[2024-02-20] MEDS ORDERED: BUPIVACAINE 0.25% PF 30 ML VIAL EPI PRN (17:46)
[2024-02-20] MEDS ORDERED: NALOXONE HCL 0.4 MG/1 ML VIAL/CARP IV PRN (17:46)
[2024-02-20] MEDS ORDERED: ONDANSETRON INJ 2 MG/ML 2 ML VIAL IV PRN (17:46)
--- NOTE | 2024-02-20 17:49 | Anesthesiology Consultation ---
Date of Service February 20, 2024 Assessment & Plan (1) Encounter for pre-operative examination: Chart Review Chart Review: Patient NOT seen in Pre Admission Testing and Acceptable Risk for Labor Epidural Consults Requested none History Height/Weight Height: 5 ft 5 in Weight: 102.058 kg Allergies Allergy/AdvReac Type Severity Reaction Status Date / Time No Known Allergies Allergy Verified 02/20/24 07:55 Medications Home Medications Medication Instructions Recorded Confirmed Last Taken albuterol sulfate 90 mcg/actuation 2 inh inhalation Q4 PRN Shortness 10/12/21 02/20/24 Unknown aerosol inhaler Of Breath prenat.vits,iva,bbr-alyp-imfev 1 tab PO DAILY 02/01/23 02/20/24 02/19/24 20:00 Iron (ferrous sulfate) 1 tab PO DAILY 02/20/24 02/20/24 02/19/24 20:00 Active Medications Generic Name Dose Route Start Last Admin Trade Name Freq PRN Reason Stop Dose Admin Lactated Ringer's 1,000 mls @ 125 mls/hr 02/20/24 08:33 02/20/24 17:40 Lr IV 02/22/24 08:32 Infused .Q8H PRN Infusion L&D Protocol Protocol Penicillin G Potassium 3 mu/ 106 mls @ 100 mls/hr 02/20/24 11:33 02/20/24 17:40 Dextrose IV 03/01/24 11:32 100 mls/hr Q4H PRN Administration GBS(+) Until Delivery Oxytocin 30 units in 500 mls @ 15 mls/hr 02/20/24 08:57 02/20/24 13:30 Pitocin 30 Units/Nss IV 02/22/24 08:56 0.9 units/hr .Q24H PRN 15 mls/hr Labor Induction/Augmentation Titration Protocol 0.9 UNITS/HR Past Medical History Medical History (spontaneous vaginal delivery) ADHD COVID-22 December 2020 Anaphylactic reaction due to unspecified food Bipolar 2 disorder Anxiety Depression Exercise / Class Metabolic Activity II 4-5 Yardwork/Stairs/Walk up hill Past Family History Family History Other Cancer Diabetes Heart disease Hypertension Past Surgical History Surgical History History of tonsillectomy [place] teeth extracted Social History Smoking Status: Never smoker tobacco type: cigarettes Hx Alcohol Use: No Hx Substance Use: No Physical Exam Vital Signs Last Vital Signs Temp 36.7 C 02/20/24 16:56 Pulse 92 H 02/20/24 18:08 Resp 18 02/20/24 13:58 BP 122/68 02/20/24 18:08 Pulse Ox 98 02/20/24 18:03 Testing Laboratory Results 02/20/24 08:53 Blood Type O Positive 02/20/24 08:11 Antibody Screen NEGATIVE 02/20/24 08:11
[2024-02-20] MEDS: fentANYL 2 MCG/ML BUPIVacaine 0.125%-NSS 100ML BAG ONE (18:02)
[2024-02-20] MEDS: BUPIVACAINE 0.25% PF 30 ML VIAL ONE (18:02)
[2024-02-20] MEDS: fentaNYL citrate PF 100 MCG/2 ML VIAL ONE (18:02)
[2024-02-20] MEDS: LIDOCAINE 2%/EPINEPHRINE 1:200,000 20 ML PF ONE (18:08)
[2024-02-20] MEDS: SODIUM CHLORIDE 0.9% PF INJ 10 ML VIAL EPI STA (18:52)
[2024-02-20] MEDS: BUPIVACAINE 0.25% PF 30 ML VIAL EPI STA (18:52)
[2024-02-20] MEDS: ePHEDrine sulfate 50 MG/ML AMP ONE (18:52)
[2024-02-20] MEDS: SODIUM CHLORIDE 0.9% PF INJ 10 ML VIAL ONE (18:52)
[2024-02-20] MEDS: LIDOCAINE 2%/EPINEPHRINE 1:200,000 20 ML PF EPI STA (18:52)
[2024-02-20] MEDS: fentaNYL citrate PF 100 MCG/2 ML VIAL EPI STA (18:52)
--- NOTE | 2024-02-20 18:55 | Labor Progress Brief Note ---
Date of Service February 20, 2024 Assessment & Plan Admission and Anticipated Discharge Date Admission Date: February 20, 2024 Physical Exam Genitourinary: Manual OB Exam: + cervical dilation 4 cm, + cervical effacement 70%, + station -2 and + amniotic fluid clear OB Exam Monitor Tracing: + external FHT monitor used, + external uterine monitor used, + category I and + normal FHT variability Results & Data Vital Signs (Past 12 Hours) Vital Signs Temp Pulse Resp BP Pulse Ox 02/20/24 18:53 74 99 02/20/24 18:48 86 100 02/20/24 18:43 99 02/20/24 18:43 81 02/20/24 18:43 84 107/59 L 02/20/24 18:39 88 110/69 02/20/24 18:38 100 H 99 02/20/24 18:33 72 99 02/20/24 18:32 67 113/58 L 02/20/24 18:28 75 98 02/20/24 18:27 86 119/59 L 02/20/24 18:23 78 98 02/20/24 18:21 80 118/64 02/20/24 18:19 86 119/63 02/20/24 18:18 86 98 02/20/24 18:17 93 H 119/65 02/20/24 18:15 84 20 123/69 02/20/24 18:13 91 H 125/68 98 02/20/24 18:11 93 H 132/71 02/20/24 18:10 20 02/20/24 18:10 20 02/20/24 18:09 90 129/70 02/20/24 18:08 98 02/20/24 18:08 88 02/20/24 18:08 92 H 122/68 02/20/24 18:06 105 H 125/84 02/20/24 18:05 20 02/20/24 18:05 20 02/20/24 18:04 89 132/99 02/20/24 18:03 93 H 98 02/20/24 17:58 99 H 99 02/20/24 17:53 88 100 02/20/24 17:48 77 97 02/20/24 17:43 97 02/20/24 17:43 83 02/20/24 17:43 83 140/76 02/20/24 16:57 78 127/79 06/17/24 16:56 36.7 C 02/20/24 16:19 80 120/76 02/20/24 15:01 36.7 C 85 121/71 02/20/24 13:58 80 18 117/70 02/20/24 13:06 83 126/76 02/20/24 11:58 88 108/67 02/20/24 11:02 18 02/20/24 11:02 36.7 C 18 02/20/24 11:00 84 121/75 02/20/24 10:00 90 124/62 02/20/24 09:19 97 H 124/74 02/20/24 07:42 36.7 C 20 02/20/24 07:41 96 H 130/71
[2024-02-20] MEDS ORDERED: HYDROCORTISONE ACETATE 25 MG SUPP PR PRN (20:26)
[2024-02-20] MEDS ORDERED: ACETAMINOPHEN 325 MG TAB PO PRN (20:26)
[2024-02-20] MEDS ORDERED: ALBUTEROL HFA 8 GM INHALER INH PRN (20:26)
[2024-02-20] MEDS ORDERED: BENZOCAINE 20% SPRY 85 APPLN/85 GM CAN EXT PRN (20:26)
[2024-02-20] MEDS ORDERED: bisacodyL 10 MG SUPP PR PRN (20:26)
--- NOTE | 2024-02-20 20:28 | Delivery Summary ---
Vaginal Delivery Summary Date of Service February 20, 2024 Vaginal Delivery Summary live female CLAUDETTE over intact perineum with delayed cord clamping and Apgars 7/9 weight pending. Cord blood obtained followed by spontaneous delivery of intact placenta. No tears. QBL 90 ml. Final sponge and instrument count are correct. Mom and baby stable.
[2024-02-20] MEDS: DIPHTHER/TETAN/PERTUS Vaccine (Tdap, Adol/Adult) 0.5mL IM ONE (22:19)
[2024-02-20] MEDS: DOCUSATE SODIUM 100 MG CAP PO SCH (22:20)
[2024-02-21 07:35] LABS: Hematocrit (blood only) 36.1 % (37.0-47.0); Hemoglobin 11.8 g/dl (12.0-16.0); Mean Corpuscular Hemoglobin 28.9 pg (25.0-34.0); Mean Corpuscular Hgb Conc 32.7 g/dL (32.0-36.0); Mean Corpuscular Volume 88.3 fL (80.0-100.0); Platelet Count 138 K/uL (130-400); RDW Coefficient of Variation 15.4 % (11.5-14.5); RDW Standard Deviation 49.4 fL (36.4-46.3); Red Blood Count 4.09 M/uL (4.20-5.40); White Blood Count 10.64 K/ul (4.8-10.8)
[2024-02-21] MEDS ORDERED: PRENATAL VITAMIN 1 TAB PO SCH (08:00)
--- NOTE | 2024-02-21 08:43 | Obstetrical Progress Note ---
Date of Service February 21, 2024 Assessment & Plan Admission and Anticipated Discharge Date Admission Date: February 20, 2024 Subjective Patient is seen and examined. She feels well, no complaints. Ambulating without dizziness Voiding without difficulty Tolerating regular diet with out N&V Bleeding is minimal No fever/ chills/ CP/ SOB/ N&V/ Leg pain Breast feeding without problems Vital Signs Temp Pulse Pulse Resp BP BP Pulse Ox 02/21/24 02:40 36.6 C 86 18 122/76 97 02/20/24 22:30 36.4 C L 83 18 122/77 98 02/20/24 22:20 18 02/20/24 22:20 95 H 136/74 02/20/24 22:05 90 132/72 02/20/24 21:51 82 103/65 02/20/24 21:50 18 02/20/24 21:35 89 125/63 02/20/24 21:20 18 02/20/24 21:20 77 129/76 02/20/24 21:05 18 02/20/24 21:05 98 H 131/76 02/20/24 20:50 18 02/20/24 20:50 83 124/79 O2 Del Method 02/21/24 02:40 Room Air 02/20/24 22:30 Room Air 02/20/24 22:20 02/20/24 22:20 02/20/24 22:05 02/20/24 21:51 02/20/24 21:50 02/20/24 21:35 02/20/24 21:20 02/20/24 21:20 02/20/24 21:05 02/20/24 21:05 02/20/24 20:50 02/20/24 20:50 Lab Results 02/20/24 02/20/24 02/21/24 Range/Units 08:11 08:53 07:11 WBC 9.83 10.64 (4.8-10.8) K/ul RBC 4.17 L 4.09 L (4.20-5.40) M/uL Hgb 12.1 11.8 L (12.0-16.0) g/dl Hct 36.4 L 36.1 L (37.0-47.0) % MCV 87.3 88.3 (80.0-100.0) fL MCH 29.0 28.9 (25.0-34.0) pg MCHC 33.2 32.7 (32.0-36.0) g/dL RDW Std Deviation 49.1 H 49.4 H (36.4-46.3) fL RDW Coeff of Talya 15.4 H 15.4 H (11.5-14.5) % Plt Count 145 138 (130-400) K/uL MPV 11.1 11.0 (9.4-12.4) fL RPR Nonreactive (Nonreactive) Blood Type O Positive Antibody Screen NEGATIVE PE: General: Alert, orientedx3, NAD Abd: soft, NT, fundus firm, below Umbilicus Perineum intact, Lochia rubra minimal Ext; NT, no edema AP: 23 yo s/p , ppd# 1 VSS Afebrile doing well Continue routine care All questions were answered D/C home tomorrow Results & Data Vital Signs (Past 12 Hours) Vital Signs Temp Pulse Pulse Resp BP BP Pulse Ox 02/21/24 02:40 36.6 C 86 18 122/76 97 02/20/24 22:30 36.4 C L 83 18 122/77 98 02/20/24 22:20 18 02/20/24 22:20 95 H 136/74 02/20/24 22:05 90 132/72 02/20/24 21:51 82 103/65 02/20/24 21:50 18 02/20/24 21:35 89 125/63 02/20/24 21:20 18 02/20/24 21:20 77 129/76 02/20/24 21:05 18 02/20/24 21:05 98 H 131/76 02/20/24 20:50 18 02/20/24 20:50 83 124/79 O2 Del Method 02/21/24 02:40 Room Air 02/20/24 22:30 Room Air 02/20/24 22:20 02/20/24 22:20 02/20/24 22:05 02/20/24 21:51 02/20/24 21:50 02/20/24 21:35 02/20/24 21:20 02/20/24 21:20 02/20/24 21:05 02/20/24 21:05 02/20/24 20:50 02/20/24 20:50
[2024-02-21] MEDS: PRENATAL VITAMIN 1 TAB PO SCH (09:00)
[2024-02-21] MEDS ORDERED: FERROUS SULFATE 325 MG TAB PO SCH (09:00)
[2024-02-21] MEDS: FERROUS SULFATE 325 MG TAB PO SCH (09:00)
[2024-02-21] MEDS: IBUPROFEN 600 MG TAB PO PRN (09:00)
[2024-02-21] MEDS: bisacodyL 5 MG TABEC PO SCH (20:08)
== END 2024-02-21 21:41 | disposition home health service (06) | DRG 807 ==
LOC: 4S1 07:33 → 4E2 22:35